=== PATIENT | female | born 1960 | race Caucasian/White ===

== ENCOUNTER 2017-10-08 23:01 | Observation (INO) | payer OTHER ==
[~2017-10-08] VITALS: Ht 160 cm; Wt 59.0 kg
[~2017-10-08 23:01] MED LIST: FURO20TA PO; LACT10SO PO; OXYC1CAP PO; PANT40TA3 PO; POTA-163 PO; SPIR50TA PO
[2017-10-08 23:08] VITALS: BP 157/73; PULSE 110; RESP 20; TEMP 98.2; O2SAT 98
[2017-10-08] MEDS ORDERED: SODIUM CHLOR 0.9% 1000 ML INJ 1,000 ML IV SCH (23:31)
[2017-10-08] MEDS ORDERED: ONDANSETRON HCL 4 MG/2 ML VIAL IVP ONE (23:45)
[2017-10-08] MEDS ORDERED: SODIUM CHLORIDE 0.9% FLUSH 10 ML FLUSH IVF PRN (23:45)
[2017-10-09] VITALS (9 sets, daily range): BP systolic 117–153; BP diastolic 58–88; PULSE 85–116; RESP 15–24; TEMP 98–98.7; O2SAT 94–97
[2017-10-09] MEDS ORDERED: PANTOPRAZOLE INJ 80 MG in SODIUM CHLORIDE 0.9% INJ 35 ML IV ONE (00:10)
[2017-10-09] MEDS ORDERED: SODIUM CHLORIDE 0.9% FLUSH 10 ML FLUSH IVF PRN (00:15)
[2017-10-09 00:18] LABS: AUTOMATED NEUTROPHIL # 1.9 TH/MM3 (1.8-7.7); EOSINOPHIL # 0.1 TH/MM3 (0-0.4); EOSINOPHIL % 2.7 % (0.0-4.0); HEMATOCRIT 31.1 % (35.0-46.0); HEMO FLAGS AUTO DIFF; LYMPH % 35.1 % (9.0-44.0); LYMPHOCYTE # 1.2 TH/MM3 (1.0-4.8); MEAN CELL VOLUME 95.9 FL (80.0-100.0); MEAN CORPUSCULAR HGB CONC 34.4 % (32.0-36.0); MONO % 7.1 % (0.0-8.0); NEUT % 54.1 % (16.0-70.0); PLATELET COUNT 48 TH/MM3 (150-450); RED BLOOD COUNT 3.25 MIL/MM3 (4.00-5.30); RED CELL DISTRIBUTION WIDTH 16.1 % (11.6-17.2); WHITE BLOOD COUNT 3.5 TH/MM3 (4.0-11.0)
[2017-10-09 00:24] LABS: ALT (GPT) 26 U/L (10-53)
[2017-10-09 00:26] LABS: ALKALINE PHOSPHATASE 165 U/L (45-117); TOTAL BILIRUBIN ADULT 4.3 MG/DL (0.2-1.0)
[2017-10-09 00:28] LABS: APTT (PATIENT) 33.3 SEC (24.3-30.1); INTERNATIONAL NORMALIZED RATIO 1.4 RATIO; PROTHROMBIN TIME - PATIENT 13.9 SEC (9.8-11.6)
[2017-10-09 00:44] LABS: ANION GAP 11 MEQ/L (5-15); AST (GOT) 100 U/L (15-37); BICARBONATE 21.6 MEQ/L (21.0-32.0); BLOOD UREA NITROGEN 8 MG/DL (7-18); CHLORIDE 113 MEQ/L (98-107); GLOMERULAR FILTRATION RATE 145 ML/MIN (>89); POTASSIUM 3.9 MEQ/L (3.5-5.1); SODIUM (NA) 146 MEQ/L (136-145)
[2017-10-09 01:03] LABS: SCAN/DIFF AUTO DIFF CONFIRMED
[2017-10-09] MEDS: PANTOPRAZOLE INJ 80 MG in SODIUM CHLORIDE 0.9% INJ 100 ML IV SCH ×3 (01:06→23:50)
[2017-10-09] MEDS: OCTREOTIDE INJ 500 MCG in SODIUM CHLORID 0.9% 500 ML INJ 500 ML IV SCH ×3 (01:27→23:51)
[2017-10-09] MEDS ORDERED: HALOPERIDOL LACTATE 5 MG/ML AMP IM PRN (01:45)
[2017-10-09] MEDS ORDERED: ONDANSETRON HCL 4 MG/2 ML VIAL IVP PRN (01:45)
[2017-10-09] MEDS ORDERED: SODIUM CHLORIDE 0.9% FLUSH 10 ML FLUSH IV FLUSH PRN (01:45)
[2017-10-09] MEDS ORDERED: MAGNESIUM HYDROXIDE SUSP 30 ML CUP PO PRN (01:45)
[2017-10-09] MEDS ORDERED: BISACODYL 10 MG SUPP RECTAL PRN (01:45)
[2017-10-09] MEDS ORDERED: SENNOSIDES 8.6 MG TAB PO PRN (01:45)
[2017-10-09] MEDS ORDERED: LORazepam 2 MG TAB PO PRN (01:45)
[2017-10-09] MEDS ORDERED: LACTULOSE SYRUP 20 GM/30 ML CUP PO PRN (01:45)
[2017-10-09] MEDS ORDERED: LORazepam 2 MG/ML VIAL IV PUSH PRN ×4 (01:45)
[2017-10-09] MEDS ORDERED: MORPHINE SULFATE 4 MG/ML INJ IV PUSH PRN (01:45)
[2017-10-09] MEDS ORDERED: FLUMAZENIL 0.5 MG/5 ML VIAL IV PUSH PRN (01:45)
[2017-10-09] MEDS ORDERED: ACETAMINOPHEN 325 MG TAB PO PRN (01:45)
[2017-10-09] MEDS: SODIUM CHLOR 0.9% 1000 ML INJ 1,000 ML IV SCH ×3 (02:17→23:52)
--- NOTE | 2017-10-09 03:14 | PD ---
HPI Chief Complaint: GI Complaint Time Seen by Provider: 23:30 Travel History International Travel<30 days: No Contact w/Intl Traveler<30days: No Traveled to known affect area: No History of Present Illness HPI 56 y/o female presents with bright red bleeding per rectum for 2 weeks. She states today she had an episode of nonbloody emesis and has been feeling more tired. She is a very poor historian on initial examination. She states that she's had a scope before but she can't remember when. She denies other complaints. States last alcohol yesterday PFSH Past Medical History Asthma: Yes Anxiety: Yes Depression: Yes Cancer: No Cardiovascular Problems: Yes COPD: No Diabetes: No Gastrointestinal Disorders: Yes GERD: Yes Glaucoma: No Genitourinary: No Hepatitis: No Hiatal Hernia: No Hypertension: Yes Musculoskeletal: Yes Neurologic: Yes Psychiatric: Yes Reproductive: Yes (ENDOMETRIOSIS) Respiratory: Yes (ASTHMA) Migraines: Yes Pancreatitis: Yes Seizures: Yes (LAST APRIL pt had a w/drawal sz when she stopped drinking ) Thyroid Disease: No Ulcer: Yes ?: Not Menopausal: Yes Past Surgical History Ear Surgery: Yes (MASTOIDECTOMY LEFT EAR 1982) Gynecologic Surgery: Yes (SCAR TISSUE REMOVED (ENDOMETRIOSIS)) Pacemaker: No Other Surgery: Yes Social History Alcohol Use: Yes Tobacco Use: No Substance Use: No Allergies-Medications (Allergen,Severity, Reaction): Coded Allergies: promethazine (Verified Allergy, Intermediate, 10/08/17) NERVOUSNESS Reported Meds & Prescriptions Reported Meds & Active Scripts Active No Active Prescriptions or Reported Medications Review of Systems Except as stated in HPI: all other systems reviewed are Neg Physical Exam Narrative GENERAL: Well-nourished, well-developed patient. SKIN: Warm and dry. HEAD: Normocephalic and atraumatic. EYES: No injection or drainage. ENT: No nasal drainage noted. NECK: Supple, trachea midline. CARDIOVASCULAR: Regular rate and rhythm RESPIRATORY: No increased effort. No accessory muscle use. GASTROINTESTINAL: Abdomen soft, non-tender, nondistended. RECTAL EXAM: Performed with owner professional engineer and after permission. No large external hemorrhoid or fissure, stool is brown with blood. NEUROLOGICAL: Awake and alert. Moves all extremities and sensory grossly within normal limits. Slurred speech. Data Data Last Documented VS Vital Signs Date Time Temp Pulse Resp B/P (MAP) Pulse Ox O2 Delivery O2 Flow Rate FiO2 10/08/17 23:08 98.2 110 20 157/73 (101) 98 Orders Orders Complete Blood Count With Diff (10/08/17 23:31) Comprehensive Metabolic Panel (10/08/17 23:31) Prothrombin Time / Inr (Pt) (10/08/17 23:31) Act Partial Throm Time (Ptt) (10/08/17 23:31) Type And Screen (10/08/17 23:31) Ecg Monitoring (10/08/17 23:31) Iv Access Insert/Monitor (10/08/17 23:31) Oximetry (10/08/17 23:31) Ondansetron Inj (Zofran Inj) (10/08/17 23:45) Sodium Chlor 0.9% 1000 Ml Inj (Ns 1000 M (10/08/17 23:31) Sodium Chloride 0.9% Flush (Ns Flush) (10/08/17 23:45) Sodium Chloride 0.9% Flush (Ns Flush) (10/09/17 00:15) Sodium Chlorid 0.9%... W/Octreotide Inj (10/09/17 00:10) Sodium Chloride 0.9... W/Pantoprazole In (10/09/17 00:10) Sodium Chloride 0.9... W/Pantoprazole In (10/09/17 00:10) Alcohol (Ethanol) (10/09/17 00:10) Admit Order (Ed Use Only) (10/09/17 01:25) Labs Laboratory Tests Test 10/08/17 23:50 White Blood Count 3.5 TH/MM3 Red Blood Count 3.25 MIL/MM3 Hemoglobin 10.7 GM/DL Hematocrit 31.1 % Mean Corpuscular Volume 95.9 FL Mean Corpuscular Hemoglobin 33.0 PG Mean Corpuscular Hemoglobin Concent 34.4 % Red Cell Distribution Width 16.1 % Platelet Count 48 TH/MM3 Mean Platelet Volume 8.1 FL Neutrophils (%) (Auto) 54.1 % Lymphocytes (%) (Auto) 35.1 % Monocytes (%) (Auto) 7.1 % Eosinophils (%) (Auto) 2.7 % Basophils (%) (Auto) 1.0 % Neutrophils # (Auto) 1.9 TH/MM3 Lymphocytes # (Auto) 1.2 TH/MM3 Monocytes # (Auto) 0.3 TH/MM3 Eosinophils # (Auto) 0.1 TH/MM3 Basophils # (Auto) 0.0 TH/MM3 CBC Comment AUTO DIFF Differential Comment AUTO DIFF CONFIRMED Prothrombin Time 13.9 SEC Prothromb Time International Ratio 1.4 RATIO Activated Partial Thromboplast Time 33.3 SEC Blood Urea Nitrogen 8 MG/DL Creatinine 0.45 MG/DL Random Glucose 114 MG/DL Total Protein 7.4 GM/DL Albumin 2.9 GM/DL Calcium Level 7.8 MG/DL Alkaline Phosphatase 165 U/L Aspartate Amino Transf (AST/SGOT) 100 U/L Alanine Aminotransferase (ALT/SGPT) 26 U/L Total Bilirubin 4.3 MG/DL Sodium Level 146 MEQ/L Potassium Level 3.9 MEQ/L Chloride Level 113 MEQ/L Carbon Dioxide Level 21.6 MEQ/L Anion Gap 11 MEQ/L Estimat Glomerular Filtration Rate 145 ML/MIN Ethyl Alcohol Level 343 MG/DL [facility] Medical Decision Making Medical Screen Exam Complete: Yes Emergency Medical Condition: Yes Medical Record Reviewed: Yes (past history confirmed) Interpretation(s) CBC & BMP Diagram 10/08/17 23:50 Total Protein 7.4, Albumin 2.9 L, Calcium Level 7.8 L, Alkaline Phosphatase 165 H, Aspartate Amino Transf (AST/SGOT) 100 H, Alanine Aminotransferase (ALT/SGPT) 26, Total Bilirubin 4.3 H Differential Diagnosis GI bleed, anemia, intoxication, gastritis Narrative Course Will check blood work and dose with Protonix and octreotide and reevaluate Labs reviewed, will admit to the hospital for further care Physician Communication Physician Communication dr boykin agrees to admit Diagnosis Primary Impression: GI bleed Qualified Codes: K92.2 - Gastrointestinal hemorrhage, unspecified Additional Impressions: Alcohol intoxication Qualified Codes: F10.929 - Alcohol use, unspecified with intoxication, unspecified Hyperbilirubinemia Admitting Information Admitting Physician Requests: Observation Scripts No Active Prescriptions or Reported Meds Chuyita Forte MD Oct 09, 2017 03:14
--- NOTE | 2017-10-09 03:44 | HHI.HP ---
HPI Service [facility] Primary Care Physician Parviz Bethea, Admission Diagnosis gi bleed Diagnoses: (1) GI bleed Diagnosis: Principal (2) Alcohol abuse Diagnosis: Principal (3) Thrombocytopenia Diagnosis: Principal Travel History International Travel<30 Days: No Contact w/Intl Traveler <30 Da: No Traveled to Known Affected Are: No History of Present Illness This is a 56-year-old female with a PMH of HTN, Anxiety, Depression, Alcohol Abuse and h/o GI Bleed who presented to the ER w/ complaints of rectal bleeding for approx 2wks. Today, w/ significant fatigue and episode of nausea w/ vomiting, nonbloody. Denies fever, chills or diarrhea. Previous admit 09/2016 , diagnosed w/ New Onset Ascites, CT Abd/Pelvis w/ ascites and varicosities consistent w/ cirrhosis, s/p EGD 09/18/16 w/ gastric ulcer and gastritis. Reports no issues since then. On arrival, BP 157/73, HR 110, O2 sat 98% on RA, Afebrile. Hemoglobin 10.7, previously 8.9 on 09/18/16. Platelets 48, previously 89 on 09/18/16. INR 1.4. Alcohol 343. Hemoccult + on exam. Review of Systems Except as stated in HPI: all other systems reviewed are Neg ROS: 14 point review of systems otherwise negative. Past Family Social History Past Medical History PMH: HTN, Anxiety, Depression, Alcohol Abuse and h/o GI Bleed Past Surgical History PAST SURGICAL HISTORY: Left Ear Surgery, Endometriosis Allergies: Coded Allergies: promethazine (Verified Allergy, Intermediate, 10/08/17) NERVOUSNESS Family History PAST FAMILY HISTORY: Reviewed. No h/o DM or CAD Social History PAST SOCIAL HISTORY: +Alcohol Abuse. Negative for tobacco or drugs. Physical Exam Vital Signs Vital Signs Date Time Temp Pulse Resp B/P (MAP) Pulse Ox O2 Delivery O2 Flow Rate FiO2 10/08/17 23:08 98.2 110 20 157/73 (101) 98 Physical Exam PE: GENERAL: Middle-aged white female in no acute distress. HEENT: PERRLA, EOMI. No scleral icterus or conjunctival pallor. No lid lag or facial droop. CARDIOVASCULAR: Regular rate and rhythm. No obvious murmurs to auscultation. No chest tenderness to palpation. RESPIRATORY: No obvious rhonchi or wheezing. Clear to auscultation. Breath sounds equal bilaterally. GASTROINTESTINAL: Abdomen soft, non-tender, nondistended. BS normal. MUSCULOSKELETAL: Extremities without clubbing, cyanosis, or edema. No obvious deformities. NEUROLOGICAL: Awake, alert and oriented x4. No focal neurologic deficits. Moving both upper and lower extremities spontaneously. Laboratory Laboratory Tests Test 10/08/17 23:50 White Blood Count 3.5 Red Blood Count 3.25 Hemoglobin 10.7 Hematocrit 31.1 Mean Corpuscular Volume 95.9 Mean Corpuscular Hemoglobin 33.0 Mean Corpuscular Hemoglobin Concent 34.4 Red Cell Distribution Width 16.1 Platelet Count 48 Mean Platelet Volume 8.1 Neutrophils (%) (Auto) 54.1 Lymphocytes (%) (Auto) 35.1 Monocytes (%) (Auto) 7.1 Eosinophils (%) (Auto) 2.7 Basophils (%) (Auto) 1.0 Neutrophils # (Auto) 1.9 Lymphocytes # (Auto) 1.2 Monocytes # (Auto) 0.3 Eosinophils # (Auto) 0.1 Basophils # (Auto) 0.0 CBC Comment AUTO DIFF Differential Comment AUTO DIFF CONFIRMED Prothrombin Time 13.9 Prothromb Time International Ratio 1.4 Activated Partial Thromboplast Time 33.3 Blood Urea Nitrogen 8 Creatinine 0.45 Random Glucose 114 Total Protein 7.4 Albumin 2.9 Calcium Level 7.8 Alkaline Phosphatase 165 Aspartate Amino Transf (AST/SGOT) 100 Alanine Aminotransferase (ALT/SGPT) 26 Total Bilirubin 4.3 Sodium Level 146 Potassium Level 3.9 Chloride Level 113 Carbon Dioxide Level 21.6 Anion Gap 11 Estimat Glomerular Filtration Rate 145 Ethyl Alcohol Level 343 Result Diagram: 10/08/17234910/08/172349 Caprini VTE Risk Assessment Caprini VTE Risk Assessment: No/Low Risk (score <= 1) VTE Pharm Contraindication: Active bleeding Caprini Risk Assessment Model Point Value = 1 Point Value = 2 Point Value = 3 Point Value = 5 Age 41-60 Minor surgery BMI > 25 kg/m2 Swollen legs Varicose veins or History of unexplained or recurrent spontaneous Oral contraceptives or hormone replacement Sepsis (< 1 month) Serious lung disease, including pneumonia (< 1 month) Abnormal pulmonary function Acute myocardial infarction Congestive heart failure (< 1 month) History of inflammatory bowel disease Medical patient at bed rest Age 61-74 Arthroscopic surgery Major open surgery (> 45 min) Laparoscopic surgery (> 45 min) Malignancy Confined to bed (> 72 hours) Immobilizing plaster cast Central venous access Age >= 75 History of VTE Family history of VTE Factor V Leiden Prothrombin [id number] Lupus anticoagulant Anticardiolipin antibodies Elevated serum homocysteine Heparin-induced thrombocytopenia Other congenital or acquired thrombophilia Stroke (< 1 month) Elective arthroplasty Hip, pelvis, or leg fracture Acute spinal cord injury (< 1 month) Prophylaxis Regimen Total Risk Factor Score Risk Level Prophylaxis Regimen 0-1 Low Early ambulation 2 Moderate Order ONE of the following: *Sequential Compression Device (SCD) *Heparin 5000 units SQ BID 3-4 Higher Order ONE of the following medications: *Heparin 5000 units SQ TID *Enoxaparin/Lovenox 40 mg SQ daily (WT < 150 kg, CrCl > 30 mL/min) *Enoxaparin/Lovenox 30 mg SQ daily (WT < 150 kg, CrCl > 10-29 mL/min) *Enoxaparin/Lovenox 30 mg SQ BID (WT < 150 kg, CrCl > 30 mL/min) AND/OR *Sequential Compression Device (SCD) 5 or more Highest Order ONE of the following medications: *Heparin 5000 units SQ TID (Preferred with Epidurals) *Enoxaparin/Lovenox 40 mg SQ daily (WT < 150 kg, CrCl > 30 mL/min) *Enoxaparin/Lovenox 30 mg SQ daily (WT < 150 kg, CrCl > 10-29 mL/min) *Enoxaparin/Lovenox 30 mg SQ BID (WT < 150 kg, CrCl > 30 mL/min) AND *Sequential Compression Device (SCD) Assessment and Plan Problem List: (1) GI bleed ICD Code: K92.2 - Gastrointestinal hemorrhage, unspecified Status: Acute (2) Alcohol abuse ICD Code: F10.10 - Alcohol abuse, uncomplicated (3) Thrombocytopenia ICD Code: D69.6 - Thrombocytopenia, unspecified Assessment and Plan A/P: 1. GI Bleed: h/o Alcohol Abuse w/ previous GI Bleed, now w/ rectal bleeding x2 wks, Hemoccult +. BP stable. Hgb 10.7, previously 8.9 on 09/18/16. On Octreotide in ER, consult GI. Check Hgb/Hct. Type and Screen, transfuse as needed. 2. Thrombocytopenia: Secondary to chronic alcohol abuse, Platelets 48, previously 89 on 09/18/16. Monitor closely. 3. Alcohol Abuse: w/ Acute Alcohol Intoxication, Alcohol 343, Seizure Precautions, MVT/Thiamine/Folate replacement, Ativan prn, 4. DVT Prophylaxis: Mechanical contraindication secondary to GI bleed 5. Social work for d/c planning as needed. 6. Case discussed w/ ER physician at length. Problem Qualifiers (1) GI bleed: Qualified Codes: K92.2 - Gastrointestinal hemorrhage, unspecified Christianne Benitez MD Oct 09, 2017 03:44
[2017-10-09] MEDS: LORazepam 1 MG TAB PO PRN ×2 (06:05→14:28)
[2017-10-09] MEDS: SODIUM CHLORIDE 0.9% FLUSH 10 ML FLUSH IV FLUSH SCH ×2 (09:00→23:50)
[2017-10-09] MEDS: THIAMINE HCL 100 MG TAB PO SCH (09:44)
[2017-10-09] MEDS: MULTIVITAMINS/MINERALS THERAPEUTIC TAB PO SCH (09:44)
[2017-10-09] MEDS: FOLIC ACID 1 MG TAB PO SCH (09:44)
[2017-10-09] MEDS: DOCUSATE SODIUM 50 MG/SENNA 8.6 MG TAB PO SCH ×2 (09:44→23:49)
--- NOTE | 2017-10-09 11:17 | PD.CONS ---
HPI History of Present Illness This is an alert 56 year old female who came to the ER with complaints of rectal bleeding 2 weeks. Patient notes bleeding initially was small amount bright red but has consistently showed more bright red bleeding. Patient denies any dysphasia, but is positive for some nausea and vomiting. Patient denies any hematemesis. Patient has a significant history of alcohol abuse, previous GI bleeds. Previous admit September 2016 showed varicosities, cirrhosis. EGD showed gastritis and gastric ulcer. Currently patient is awake , answering questions appropriately but has some anxiety and tremors noted. She has been placed on an EtOH protocol for withdrawal. Patient denies any fever but does note some chills off and on over the past few weeks. She also complains of some abdominal bloating. Hemoglobin was noted to be 10.7/31.1 on admission. PFSH Past Medical History HTN, Anxiety, Depression, Alcohol Abuse since the age of 19 GI Bleed Anxiety GERD Past Surgical History Left Ear Surgery, Endometriosis Breast mammoplasty Coded Allergies: promethazine (Verified Allergy, Intermediate, 10/08/17) NERVOUSNESS Medications Administered Medications Medications (Trade) Dose Ordered Sig/Cristal Route PRN Reason Start Time Stop Time Status Last Admin Dose Admin Octreotide Acetate 500 mcg/ Sodium Chloride 500.5 ml @ 50 mls/hr Q10H1M IV 10/09/17 00:10 10/09/17 01:27 Pantoprazole Sodium 80 mg/ Sodium Chloride 100 ml @ 10 mls/hr Q10H IV 10/09/17 00:10 10/09/17 01:06 Folic Acid (Folate) 1 mg DAILY PO 10/09/17 09:00 10/14/17 08:59 10/09/17 09:44 Thiamine HCl (Vitamin B1) 100 mg DAILY PO 10/09/17 09:00 10/09/17 09:44 Multivitamins/ Minerals Therapeutic (Theragran M Tab) 1 tab DAILY PO 10/09/17 09:00 10/14/17 08:59 10/09/17 09:44 Lorazepam (Ativan) 1 mg Q4H PRN PO CIWA 8 - 10 10/09/17 01:45 10/09/17 06:05 Sodium Chloride 1,000 ml @ 100 mls/hr Q10H IV 10/09/17 01:32 10/09/17 02:17 Senna/Docusate Sodium (Ashleigh-Colace) 1 tab BID PO 10/09/17 09:00 10/09/17 09:44 Family History No h/o DM or CAD Social History +Alcohol Abuse, since the age of 19, amount of alcohol was waxed and waned depending on her life needs. Preference is vodka, sometimes daily or at least 3 times a week Negative for tobacco or drugs. Zamzam is and currently lives alone Review of Systems Constitutional: COMPLAINS OF: Fatigue, Chills Gastrointestinal: COMPLAINS OF: Bloody stools, Nausea, Vomiting Psychiatric: COMPLAINS OF: Mood changes (EtOH abuse, tremors, possible withdrawal) GI Exam Vitals I&O Vital Signs Date Time Temp Pulse Resp B/P (MAP) Pulse Ox O2 Delivery O2 Flow Rate FiO2 10/09/17 08:25 98.0 111 24 134/63 (86) 94 10/09/17 04:39 98.7 114 18 133/74 (93) 95 10/09/17 04:18 102 16 127/60 (82) 98 Nasal Cannula 2.00 10/09/17 03:00 100 16 117/66 (83) 97 Nasal Cannula 2.00 10/09/17 02:00 94 15 121/67 (85) 96 Room Air 10/09/17 01:00 104 18 125/59 (81) 96 Room Air 10/09/17 00:00 116 17 130/71 (90) 96 Room Air 10/08/17 23:08 98.2 110 20 157/73 (101) 98 I/O 10/08/17 10/08/17 10/08/17 10/09/17 10/09/17 10/09/17 06:59 14:59 22:59 06:59 14:59 22:59 Intake Total 100 ml Balance 100 ml Intake IV Total 100 ml # Voids 1 Laboratory Test 10/08/17 23:50 White Blood Count 3.5 TH/MM3 Red Blood Count 3.25 MIL/MM3 Hemoglobin 10.7 GM/DL Hematocrit 31.1 % Mean Corpuscular Volume 95.9 FL Mean Corpuscular Hemoglobin 33.0 PG Mean Corpuscular Hemoglobin Concent 34.4 % Red Cell Distribution Width 16.1 % Platelet Count 48 TH/MM3 Mean Platelet Volume 8.1 FL Neutrophils (%) (Auto) 54.1 % Lymphocytes (%) (Auto) 35.1 % Monocytes (%) (Auto) 7.1 % Eosinophils (%) (Auto) 2.7 % Basophils (%) (Auto) 1.0 % Neutrophils # (Auto) 1.9 TH/MM3 Lymphocytes # (Auto) 1.2 TH/MM3 Monocytes # (Auto) 0.3 TH/MM3 Eosinophils # (Auto) 0.1 TH/MM3 Basophils # (Auto) 0.0 TH/MM3 CBC Comment AUTO DIFF Differential Comment AUTO DIFF CONFIRMED Prothrombin Time 13.9 SEC Prothromb Time International Ratio 1.4 RATIO Activated Partial Thromboplast Time 33.3 SEC Blood Urea Nitrogen 8 MG/DL Creatinine 0.45 MG/DL Random Glucose 114 MG/DL Total Protein 7.4 GM/DL Albumin 2.9 GM/DL Calcium Level 7.8 MG/DL Alkaline Phosphatase 165 U/L Aspartate Amino Transf (AST/SGOT) 100 U/L Alanine Aminotransferase (ALT/SGPT) 26 U/L Total Bilirubin 4.3 MG/DL Sodium Level 146 MEQ/L Potassium Level 3.9 MEQ/L Chloride Level 113 MEQ/L Carbon Dioxide Level 21.6 MEQ/L Anion Gap 11 MEQ/L Estimat Glomerular Filtration Rate 145 ML/MIN Ethyl Alcohol Level 343 MG/DL Physical Examination HEENT: Pupils round and reactive to light; normocephalic; atraumatic; skin color very clemons, oral cavity is clean. NECK: Neck is supple, no JVD, no lymphadenopathy. CHEST: Chest is clear to auscultation and percussion. CARDIAC: Regular rate and rhythm with no murmur gallop or rubs. ABDOMEN: Soft, positive for bloating mild distended, mild tenderness noted right upper quadrant, +hepatosplenomegaly; bowel sounds are present in all four quadrants. EXTREMITIES: No clubbing, cyanosis, or edema. SKIN: Normal; no rash; no jaundice. 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 - Alcohol-induced anxiety disorder Status: Acute (2) Alcoholic hepatitis ICD Codes: K70.10 - Alcoholic hepatitis without ascites Status: Acute (3) Alcohol abuse ICD Codes: F10.10 - Alcohol abuse, uncomplicated Status: Chronic (4) Ascites ICD Codes: R18.8 - Other ascites Status: Acute (5) Abdominal pain ICD Codes: R10.9 - Unspecified abdominal pain Status: Acute (6) GI bleed ICD Codes: K92.2 - Gastrointestinal hemorrhage, unspecified Status: Acute Plan Plan Diet clear liquids EGD and colonoscopy for Wednesday a.m., patient will be nothing by mouth at midnight and will receive bowel prep, and clear liquid diet on 10-10. Consents ordered Patient is alert and vital signs are stable, hemoglobin is 10.7 Monitor for any further GI bleeding, Transfuse as necessary Labs daily which will include hemoglobin hematocrit, LFTs Iron/TIBC, ferritin level Hemoccult, Gastroccult daily 3 PPI Carafate before meals and at bedtime Hold any coags for now Bowel regimen as needed for stool softeners and laxatives Treatment regimen and plan a care will be based on findings above Patient has been seen per Dr. Lauren and myself, consult written on her behalf Problem Qualifiers (1) GI bleed: Qualified Codes: K92.2 - Gastrointestinal hemorrhage, unspecified Felicia Xavier Oct 09, 2017 11:17
[2017-10-09] MEDS ORDERED: PEG (High)/E-LYTE SOLN 4000 ML BTL PO ONE (11:30)
--- NOTE | 2017-10-09 11:36 | HHI.PR ---
Subjective Remarks Follow up on a 56 year old female with PMH of HTN, anxiety, depression, alcohol abuse and GI bleed who presented to the ED. with complaints of bright red rectal bleeding for 2 weeks with increased fatigue. She denies any syncope or dizziness. Patient denies any nausea, or vomiting, no abdominal pain. She denies any NSAID use, but is an alcohol drinker reports drinking 3 vodka and tea 's about 3 times a week when her boyfriend is over. Patient is aware that she drinks in excess and has been through alcohol withdraws in the past with hallucinations. At the moment she does not report any visual changes and states that she is feeling fine. She denies any nausea or vomiting, no SOB. repots chest pain that is constant rates it 06/17. She denies any other associated symptoms, denies prior cardiac history. GI was in to see patient, but she is not aware of plans for her today. Objective Vitals Vital Signs Date Time Temp Pulse Resp B/P (MAP) Pulse Ox O2 Delivery O2 Flow Rate FiO2 10/09/17 08:25 98.0 111 24 134/63 (86) 94 10/09/17 04:39 98.7 114 18 133/74 (93) 95 10/09/17 04:18 102 16 127/60 (82) 98 Nasal Cannula 2.00 10/09/17 03:00 100 16 117/66 (83) 97 Nasal Cannula 2.00 10/09/17 02:00 94 15 121/67 (85) 96 Room Air 10/09/17 01:00 104 18 125/59 (81) 96 Room Air 10/09/17 00:00 116 17 130/71 (90) 96 Room Air 10/08/17 23:08 98.2 110 20 157/73 (101) 98 I/O 10/08/17 10/08/17 10/08/17 10/09/17 10/09/17 10/09/17 07:00 15:00 23:00 07:00 15:00 23:00 Intake Total 100 ml Balance 100 ml Intake IV Total 100 ml # Voids 1 2 Result Diagram: 10/08/17 2350 10/08/17 2350 Imaging Last Impressions Abdomen/Pelvis CT 10/09/17 0000 Signed Impressions: Service Date/Time: Saturday, October 09, 2017 13:05 - CONCLUSION: 1. Cirrhotic liver with portal hypertension including large recanalized periumbilical vein and prominent splenorenal collaterals. There are small gastroesophageal varices. No significant ascites. 2. Cholelithiasis. 3. Otherwise, no definite acute animality. Yoel Winters MD Objective Remarks GENERAL: Middle-aged white female in no acute distress with fine hand shaking. HEENT: No scleral icterus or conjunctival pallor. No lid lag or facial droop. CARDIOVASCULAR: Regular rate and rhythm. No obvious murmurs to auscultation. RESPIRATORY: No obvious rhonchi or wheezing. Clear to auscultation. Breath sounds equal bilaterally. GASTROINTESTINAL: Abdomen soft, non-tender, nondistended. BS normal. MUSCULOSKELETAL: Extremities without clubbing, cyanosis, or edema. No obvious deformities. NEUROLOGICAL: Awake, alert and oriented x3. No focal neurologic deficits. Moving both upper and lower extremities spontaneously. A/P Problem List: (1) GI bleed ICD Code: K92.2 - Gastrointestinal hemorrhage, unspecified Status: Acute (2) Alcohol abuse ICD Code: F10.10 - Alcohol abuse, uncomplicated (3) Thrombocytopenia ICD Code: D69.6 - Thrombocytopenia, unspecified Assessment and Plan 56 year old female with PMH of HTN, anxiety, depression, alcohol abuse and GI bleed who presented to the ED. with complaints of bright red rectal bleeding for 2 weeks with increased fatigue. Gastrointestinal bleed, likely lower as she is having bright red blood in stool Anemia with thrombocytopenia - Initial H&H 10.7/31.1 with PLTs 48 - CT scan of the Abdomen/ Pelvis reviewed showing cirrhotic liver with portal hypertension with large recanalized periumbilical vein and prominent splenorenal collaterals. Small gastroesophageal varices, no ascites. Cholelithiasis present as well. - GI has been consulted and had advanced patient to clear liquid diet with plans for EGD and colonoscopy on Wednesday morning. - Iron studies ordered by GI, Pantoprazole, Octreotide IV & PO Carafate before meals and at HS Liver cirrhosis with thrombocytopenia likely secondary to alcohol abuse - Patient repots alcohol consumption at least 3 times a week, ethyl alcohol level on admission 343. - Advised on alcohol cessation and need to do this cautiously to avoid seizures from withdraw. - Small amount of hand shaking with no reported visual hallucinations. - On Thiamine, folate, and Multivitamin PO - PRN Ativan if needed, seizure precautions - CIWA protocol Atypical chest pain, acute - Likely related to GIB, anemia. - Order serial trops and EKG's - EKG done in ED reviewed, showing ST - Morphine PRN for pain. VTE - Anticoagulation contraindicated due to GIB, SCD's and SIMIN's for now. Discussed with Problem Qualifiers (1) GI bleed: Qualified Codes: K92.2 - Gastrointestinal hemorrhage, unspecified Samir Abraham Oct 09, 2017 11:35
[2017-10-09] MEDS: SUCRALFATE 1 GM/10 ML CUP PO SCH ×3 (12:00→23:49)
--- NOTE | 2017-10-09 13:31 | RADRPT ---
EXAM DATE/TIME: 10/09/2017 13:05 [place] COMPARISON: CT ABDOMEN & PELVIS W CONTRAST, September 15, 2016, 18:56. INDICATIONS : Right lower abdomen pain and blood in stool today. ORAL CONTRAST: No oral contrast ingested. RADIATION DOSE: 13.48 CTDIvol (mGy) MEDICAL HISTORY : Hypertension. Pancreatitis. Gastroesophageal reflux disease. SURGICAL HISTORY : None. ENCOUNTER: Initial ACUITY: 1 day PAIN SCALE: 4/10 LOCATION: Right lower quadrant TECHNIQUE: Volumetric scanning of the abdomen and pelvis was performed. Using automated exposure control and ad justment of the mA and/or kV according to patient size, radiation dose was kept as low as reasonably achievable to obtain optimal diagnostic quality images. DICOM format image data is available electro nically for review and comparison. FINDINGS: LOWER LUNGS: The visualized lower lungs are clear. LIVER: Lobulated liver contour with large recanalized periumbilical vein consistent with cirrhosis and ny l hypertension. Prominent splenorenal collaterals. Grossly stable small gastroesophageal varices. Gal lbladder is mildly distended with multiple small dependent gallstones. No significant ascites. SPLEEN: Spleen is enlarged measuring up to 14.8 cm. PANCREAS: Within normal limits. KIDNEYS: No radiopaque renal calculi or hydronephrosis. Symmetrical in size without significant contour deform ing of the mildly. ADRENAL GLANDS: Within normal limits. VASCULAR: There is no aortic aneurysm. BOWEL/MESENTERY: The stomach, small bowel, and colon demonstrate no acute abnormality. There is no free intraperitone al air or fluid. ABDOMINAL WALL: Within normal limits. RETROPERITONEUM: There is no lymphadenopathy. BLADDER: No wall thickening or mass. REPRODUCTIVE: Within normal limits. INGUINAL: There is no lymphadenopathy or hernia. MUSCULOSKELETAL: Within normal limits for patient age. CONCLUSION: 1. Cirrhotic liver with portal hypertension including large recanalized periumbilical vein and promin ent splenorenal collaterals. There are small gastroesophageal varices. No significant ascites. 2. Cholelithiasis. 3. Otherwise, no definite acute animality. Yoel Winters MD on October 09, 2017 at 13:24 Board Certified Radiologist. This report was verified electronically.
[2017-10-09] MEDS ORDERED: DEXTROSE 50% IN WATER 50 ML VIAL(D50) IV PUSH PRN (19:15)
[2017-10-09] MEDS ORDERED: GLUCAGON 1 MG/ML VIAL OTHER PRN (19:15)
[2017-10-09] MEDS: INSULIN ASPART SUPPLEMENTAL SCALE SQ SCH (21:00)
[2017-10-09] MEDS ORDERED: POVIDONE IODINE 5% (ANTISEPSIS KIT) 4 APPLICATIONS EACH NARE PRN (22:00)
[2017-10-09] MEDS ORDERED: LACTATED RINGER'S 1000 ML IV PRN (22:00)
[2017-10-09] MEDS ORDERED: CHLORHEXIDINE GLUCONATE 2 % 1 PACK (2 CLOTHS) TOPICAL PRN (22:00)
[2017-10-10] VITALS (7 sets, daily range): BP systolic 126–186; BP diastolic 60–91; PULSE 83–101; RESP 18–24; TEMP 98.2–98.6; O2SAT 94–97
[2017-10-10 03:39] LABS: TRANSFERRIN IRON PROFILE 155 MG/DL (200-360)
[2017-10-10 03:42] LABS: FERRITIN 256 NG/ML (8-252)
[2017-10-10] MEDS: INSULIN ASPART SUPPLEMENTAL SCALE SQ SCH ×4 (08:00→21:00)
[2017-10-10] MEDS: SUCRALFATE 1 GM/10 ML CUP PO SCH ×4 (08:09→22:25)
[2017-10-10] MEDS: SODIUM CHLORIDE 0.9% FLUSH 10 ML FLUSH IV FLUSH SCH ×2 (08:10→21:00)
--- NOTE | 2017-10-10 09:07 | HHI.GIFU ---
Subjective Remarks Pt resting in bed comfortably complaining of weakness. Reports no BM today or yesterday. Complaining of nausea, denies vomiting. Also having abdominal fullness, denies any abdominal pain. (Anika Alexis) Objective Vitals I&O Vital Signs Date Time Temp Pulse Resp B/P (MAP) Pulse Ox O2 Delivery O2 Flow Rate FiO2 10/10/17 07:39 98.6 87 20 135/63 (87) 95 10/10/17 03:14 98.4 101 18 126/60 (82) 94 10/10/17 00:16 98.5 94 18 147/72 (97) 96 10/09/17 16:36 98.2 85 20 153/58 (89) 96 10/09/17 12:44 98.2 113 24 141/88 (105) 96 I/O 10/09/17 10/09/17 10/09/17 10/10/17 10/10/17 10/10/17 07:00 15:00 23:00 07:00 15:00 23:00 Intake Total 1000 ml 1600.5 ml Output Total 400 ml Balance 1000 ml 1600.5 ml -400 ml Intake IV Total 1000 ml 1600.5 ml Output Urine Total 400 ml # Voids 1 2 6 # Bowel Movements 0 Laboratory Laboratory Tests Test 10/09/17 13:35 10/09/17 19:50 10/10/17 02:47 Troponin I LESS THAN 0.02 LESS THAN 0.02 LESS THAN 0.02 Iron Level 193 Total Iron Binding Capacity 217 Percent Iron Saturation 88.9 Ferritin 256 Imaging Last Impressions Abdomen/Pelvis CT 10/09/17 0000 Signed Impressions: Service Date/Time: Monday, October 09, 2017 13:05 - CONCLUSION: 1. Cirrhotic liver with portal hypertension including large recanalized periumbilical vein and prominent splenorenal collaterals. There are small gastroesophageal varices. No significant ascites. 2. Cholelithiasis. 3. Otherwise, no definite acute animality. Yoel Winters MD Physical Exam HEENT: Normocephalic; atraumatic; no jaundice. CHEST: CTA CARDIAC: RRR ABDOMEN: Soft, distended, nontender; hepatomegaly; bowel sounds are present in all four quadrants. EXTREMITIES: Mild edema. SKIN: Normal; no rash; no jaundice. SHREDDER TENDER PEAT: No focal deficits; alert and oriented times three. 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 H/H on admission . Labs from today pending. Octreotide gtt. Protonix gtt. Plan for EGD/colon tomorrow. - Alcoholic hepatitis/cirrhosis- Pt reports having one paracentesis in the past , approx a year ago. CT Abdomen & pelvis W/O IV contrast (10/09) --> Cirrhotic liver with portal hypertension including large recanalized periumbilical vein and prominent splenorenal collaterals. There are small gastroesophageal varices No significant ascites. Cholelithiasis. Otherwise, no definite acute animality. Lactulose. - Transaminitis- etiology most likely related to ETOH. AST-100. ALT-26 T bili 4.3. - Anemia- normocytic- most likely related to active bleed. Iron-193 TIBC-217 % Sat- 88.9 Ferritin-256 - Nausea- Zofran as needed Plan - EGD/colon tomorrow - Obtain consents - Clear liquid diet today - NPO after MN - GoLYTELY prep - Protonix gtt - Octreotide gtt - Monitor labs - Transfuse as needed - Notify GI of any active bleeding - Further recommendations to follow based on results of above Patient has been seen and examined by myself and Dr. Lauren and this note is written on her behalf (Anika Alexis) Physician Comments seen, examined\ agree with above direct/indirect bilirubin if lfts worsening consider Trental/Prednisolone elevated iron, ferritin most likely secondary etoh use, may test for hereditary hemochromatosis test avoid etoh/hepatotoxics (Arina Lauren MD) Problem Qualifiers (1) GI bleed: Qualified Codes: K92.2 - Gastrointestinal hemorrhage, unspecified Anika Alexis Oct 10, 2017 09:07 Arina Lauren MD Oct 10, 2017 18:07
[2017-10-10 09:49] LABS: HEMOGLOBIN A1b 1.1 %; HEMOGLOBIN Ao 87.3 %; HEMOGLOBIN LA1C 2.1 %; HEMOGLOBIN P3 3.3 %
[2017-10-10] MEDS: MULTIVITAMINS/MINERALS THERAPEUTIC TAB PO SCH (09:49)
[2017-10-10] MEDS: THIAMINE HCL 100 MG TAB PO SCH (09:49)
[2017-10-10] MEDS: DOCUSATE SODIUM 50 MG/SENNA 8.6 MG TAB PO SCH ×2 (09:50→21:00)
[2017-10-10] MEDS: FOLIC ACID 1 MG TAB PO SCH (09:50)
[2017-10-10] MEDS ORDERED: PNEUMOCOCCAL POLYVALENT INJ 25 MCG/0.5 ML SYR IM ONE (10:00)
[2017-10-10] MEDS: SODIUM CHLOR 0.9% 1000 ML INJ 1,000 ML IV SCH (10:34)
--- NOTE | 2017-10-10 10:39 | HHI.PR ---
Subjective Remarks Follow-up GI bleed/anemia, alcohol abuse 10/10/17-patient seen and examined,+ heart palpitation, hand tremors. Denies any GI bleed since admission. Plan for panendoscopy tomorrow. Objective Vitals Vital Signs Date Time Temp Pulse Resp B/P (MAP) Pulse Ox O2 Delivery O2 Flow Rate FiO2 10/10/17 07:39 98.6 87 20 135/63 (87) 95 10/10/17 03:14 98.4 101 18 126/60 (82) 94 10/10/17 00:16 98.5 94 18 147/72 (97) 96 10/09/17 16:36 98.2 85 20 153/58 (89) 96 10/09/17 12:44 98.2 113 24 141/88 (105) 96 I/O 10/09/17 10/09/17 10/09/17 10/10/17 10/10/17 10/10/17 07:00 15:00 23:00 07:00 15:00 23:00 Intake Total 1000 ml 1600.5 ml 1000 ml Output Total 700 ml Balance 1000 ml 1600.5 ml 300 ml Intake IV Total 1000 ml 1600.5 ml 1000 ml Output Urine Total 700 ml # Voids 1 2 6 # Bowel Movements 0 Result Diagram: 10/08/17 2350 10/08/17 2350 Imaging Last Impressions Abdomen/Pelvis CT 10/09/17 0000 Signed Impressions: Service Date/Time: Monday, October 09, 2017 13:05 - CONCLUSION: 1. Cirrhotic liver with portal hypertension including large recanalized periumbilical vein and prominent splenorenal collaterals. There are small gastroesophageal varices. No significant ascites. 2. Cholelithiasis. 3. Otherwise, no definite acute animality. Yoel Winters MD Objective Remarks GENERAL: NAD SKIN: Warm and dry. HEAD: Normocephalic. EYES: No scleral icterus. No injection or drainage. NECK: Supple, trachea midline. No JVD or lymphadenopathy. CARDIOVASCULAR: Regular rate and rhythm without murmurs, gallops, or rubs. RESPIRATORY: Breath sounds equal bilaterally. No accessory muscle use. GASTROINTESTINAL: Abdomen soft, non-tender, nondistended. MUSCULOSKELETAL: No cyanosis, or edema. BACK: Nontender without obvious deformity. No CVA tenderness. A/P Problem List: (1) GI bleed ICD Code: K92.2 - Gastrointestinal hemorrhage, unspecified Status: Acute (2) Alcohol abuse ICD Code: F10.10 - Alcohol abuse, uncomplicated (3) Thrombocytopenia ICD Code: D69.6 - Thrombocytopenia, unspecified Assessment and Plan 56 year old female with PMH of HTN, anxiety, depression, alcohol abuse and GI bleed who presented to the ED. with complaints of bright red rectal bleeding for 2 weeks with increased fatigue. Gastrointestinal bleed, likely lower as she is having bright red blood in stool Anemia with thrombocytopenia - Initial H&H 10.7/31.1 with PLTs 48 -Appreciate input from GI and plan for panendoscopy 10/11/17 - Continue Pantoprazole, Octreotide IV & PO Carafate before meals and at HS Liver cirrhosis with thrombocytopenia likely secondary to alcohol abuse - Advised on alcohol cessation and need to do this cautiously to avoid seizures from withdraw. - Small amount of hand shaking with no reported visual hallucinations. - On Thiamine, folate, and Multivitamin PO - PRN Ativan if needed, seizure precautions - CIWA protocol -Start Librium protocol when necessary Atypical chest pain, acute - Resolved, ACS ruled out per protocol VTE - Anticoagulation contraindicated due to GIB, SCD's and SIMIN's for now. Problem Qualifiers (1) GI bleed: Qualified Codes: K92.2 - Gastrointestinal hemorrhage, unspecified Marquise Colunga MD Oct 10, 2017 10:39
[2017-10-10] MEDS: OCTREOTIDE INJ 500 MCG in SODIUM CHLORID 0.9% 500 ML INJ 500 ML IV SCH (11:18)
[2017-10-10] MEDS: PANTOPRAZOLE INJ 80 MG in SODIUM CHLORIDE 0.9% INJ 100 ML IV SCH (11:18)
[2017-10-10 13:41] LABS: AUTOMATED NEUTROPHIL # 1.3 TH/MM3 (1.8-7.7); BASOPHIL % 0.5 % (0.0-2.0); EOSINOPHIL # 0.1 TH/MM3 (0-0.4); EOSINOPHIL % 4.3 % (0.0-4.0); HEMATOCRIT 28.4 % (35.0-46.0); LYMPH % 23.2 % (9.0-44.0); LYMPHOCYTE # 0.5 TH/MM3 (1.0-4.8); MEAN CELL VOLUME 95.2 FL (80.0-100.0); MEAN CORPUSCULAR HEMOGLOBIN 32.9 PG (27.0-34.0); MEAN CORPUSCULAR HGB CONC 34.6 % (32.0-36.0); MONO % 8.4 % (0.0-8.0); NEUT % 63.6 % (16.0-70.0); PLATELET COUNT 30 TH/MM3 (150-450); RED BLOOD COUNT 2.98 MIL/MM3 (4.00-5.30); RED CELL DISTRIBUTION WIDTH 15.1 % (11.6-17.2); WHITE BLOOD COUNT 2.1 TH/MM3 (4.0-11.0)
[2017-10-10 13:45] LABS: HEMO FLAGS AUTO DIFF
[2017-10-10 13:48] LABS: INTERNATIONAL NORMALIZED RATIO 1.5 RATIO; PROTHROMBIN TIME - PATIENT 15.3 SEC (9.8-11.6)
[2017-10-10 14:11] LABS: ALT (GPT) 23 U/L (10-53); ANION GAP 8 MEQ/L (5-15); AST (GOT) 75 U/L (15-37); BICARBONATE 25.6 MEQ/L (21.0-32.0); CHLORIDE 105 MEQ/L (98-107); GLOMERULAR FILTRATION RATE 138 ML/MIN (>89); POTASSIUM 3.5 MEQ/L (3.5-5.1); SODIUM (NA) 139 MEQ/L (136-145)
[2017-10-10 14:20] LABS: PLATELET ESTIMATE SMEAR LOW (NORMAL); PLATELET MORPHOLOGY NORMAL (NORMAL); SCAN/DIFF AUTO DIFF CONFIRMED
[2017-10-10 14:21] LABS: ALKALINE PHOSPHATASE 120 U/L (45-117); BLOOD UREA NITROGEN 5 MG/DL (7-18); TOTAL BILIRUBIN ADULT 7.3 MG/DL (0.2-1.0)
[2017-10-10] MEDS ORDERED: PEG (High)/E-LYTE SOLN 4000 ML BTL PO ONE (16:00)
[2017-10-10] MEDS ORDERED: PROT40TA PO (18:08)
--- NOTE | 2017-10-10 22:54 | EKG ---
Date Performed: 10/09/2017 Time Performed: 10:55:32 PTAGE: 56 years EKG: SINUS TACHYCARDIA ABNORMAL RHYTHM ECG PREVIOUS TRACING : 04/17/2016 14.50 Compared to prior tracing no significant change DOCTOR: Aime Cho Interpretating Date/Time 10/10/2017 22:53:50
[2017-10-11] MEDS: SODIUM CHLOR 0.9% 1000 ML INJ 1,000 ML IV SCH ×4 (01:02→23:32)
[2017-10-11] MEDS: PANTOPRAZOLE INJ 80 MG in SODIUM CHLORIDE 0.9% INJ 100 ML IV SCH ×4 (01:02→21:16)
[2017-10-11] MEDS: OCTREOTIDE INJ 500 MCG in SODIUM CHLORID 0.9% 500 ML INJ 500 ML IV SCH ×4 (01:06→21:17)
[2017-10-11 04:51] VITALS: BP 139/86; PULSE 95; RESP 18; TEMP 97.8; O2SAT 98
--- NOTE | 2017-10-11 07:44 | HHI.PR ---
Subjective Remarks Follow-up visit on a 56-year-old female with past medical history of hypertension, anxiety, depression, and alcohol abuse who presented on 10/09 to the ED with complaints of rectal bleeding for the past 2 weeks. Patient was seen and examined this morning in CDU resting comfortably. She denies any vomiting although does report some nausea overnight, nice any black or bloody stools overnight. She is aware that she will be going today for upper and lower endoscopy. She denies any SOB, chest pains, fevers or chills overnight. She denies any hallucinations or shakiness. HAD EGD AND COLONOSCOPY PATIENT IS VERY JAUNDICED AM LABS PT AND OT Objective Vitals Vital Signs Date Time Temp Pulse Resp B/P (MAP) Pulse Ox O2 Delivery O2 Flow Rate FiO2 10/11/17 04:51 97.8 95 18 139/86 (103) 98 10/10/17 23:47 98.3 83 18 131/68 (89) 96 10/10/17 20:26 98.2 92 18 186/91 (122) 97 10/10/17 15:42 98.2 98 24 148/65 (92) 96 10/10/17 11:26 98.5 99 20 131/69 (89) 96 I/O 10/10/17 10/10/17 10/10/17 10/11/17 10/11/17 10/11/17 07:00 15:00 23:00 07:00 15:00 23:00 Intake Total 1600.5 ml Output Total 700 ml 400 ml Balance 900.5 ml -400 ml Intake IV Total 1600.5 ml Output Urine Total 700 ml 400 ml # Bowel Movements 1 Result Diagram: 10/10/17 1314 10/10/17 1314 Other Results Laboratory Tests Test 10/08/17 23:50 10/09/17 13:35 10/09/17 19:50 10/10/17 02:47 White Blood Count 3.5 TH/MM3 Red Blood Count 3.25 MIL/MM3 Hemoglobin 10.7 GM/DL Hematocrit 31.1 % Mean Corpuscular Volume 95.9 FL Mean Corpuscular Hemoglobin 33.0 PG Mean Corpuscular Hemoglobin Concent 34.4 % Red Cell Distribution Width 16.1 % Platelet Count 48 TH/MM3 Mean Platelet Volume 8.1 FL Neutrophils (%) (Auto) 54.1 % Lymphocytes (%) (Auto) 35.1 % Monocytes (%) (Auto) 7.1 % Eosinophils (%) (Auto) 2.7 % Basophils (%) (Auto) 1.0 % Neutrophils # (Auto) 1.9 TH/MM3 Lymphocytes # (Auto) 1.2 TH/MM3 Monocytes # (Auto) 0.3 TH/MM3 Eosinophils # (Auto) 0.1 TH/MM3 Basophils # (Auto) 0.0 TH/MM3 CBC Comment AUTO DIFF Differential Comment AUTO DIFF CONFIRMED Prothrombin Time 13.9 SEC Prothromb Time International Ratio 1.4 RATIO Activated Partial Thromboplast Time 33.3 SEC Blood Urea Nitrogen 8 MG/DL Creatinine 0.45 MG/DL Random Glucose 114 MG/DL Total Protein 7.4 GM/DL Albumin 2.9 GM/DL Calcium Level 7.8 MG/DL Alkaline Phosphatase 165 U/L Aspartate Amino Transf (AST/SGOT) 100 U/L Alanine Aminotransferase (ALT/SGPT) 26 U/L Total Bilirubin 4.3 MG/DL Sodium Level 146 MEQ/L Potassium Level 3.9 MEQ/L Chloride Level 113 MEQ/L Carbon Dioxide Level 21.6 MEQ/L Anion Gap 11 MEQ/L Estimat Glomerular Filtration Rate 145 ML/MIN Ethyl Alcohol Level 343 MG/DL Troponin I LESS THAN 0.02 NG/ML LESS THAN 0.02 NG/ML LESS THAN 0.02 NG/ML Hemoglobin A1c 4.8 % Iron Level 193 MCG/DL Total Iron Binding Capacity 217 MCG/DL Percent Iron Saturation 88.9 % Ferritin 256 NG/ML Test 10/10/17 13:14 10/11/17 06:12 White Blood Count 2.1 TH/MM3 Red Blood Count 2.98 MIL/MM3 Hemoglobin 9.8 GM/DL Hematocrit 28.4 % Mean Corpuscular Volume 95.2 FL Mean Corpuscular Hemoglobin 32.9 PG Mean Corpuscular Hemoglobin Concent 34.6 % Red Cell Distribution Width 15.1 % Platelet Count 30 TH/MM3 Mean Platelet Volume 8.4 FL Neutrophils (%) (Auto) 63.6 % Lymphocytes (%) (Auto) 23.2 % Monocytes (%) (Auto) 8.4 % Eosinophils (%) (Auto) 4.3 % Basophils (%) (Auto) 0.5 % Neutrophils # (Auto) 1.3 TH/MM3 Lymphocytes # (Auto) 0.5 TH/MM3 Monocytes # (Auto) 0.2 TH/MM3 Eosinophils # (Auto) 0.1 TH/MM3 Basophils # (Auto) 0.0 TH/MM3 CBC Comment AUTO DIFF Differential Comment AUTO DIFF CONFIRMED Platelet Estimate LOW Platelet Morphology Comment NORMAL Prothrombin Time 15.3 SEC Prothromb Time International Ratio 1.5 RATIO Blood Urea Nitrogen 5 MG/DL Creatinine 0.47 MG/DL Random Glucose 145 MG/DL Total Protein 7.0 GM/DL Albumin 2.8 GM/DL Calcium Level 7.9 MG/DL Alkaline Phosphatase 120 U/L Aspartate Amino Transf (AST/SGOT) 75 U/L Alanine Aminotransferase (ALT/SGPT) 23 U/L Total Bilirubin 7.3 MG/DL Sodium Level 139 MEQ/L Potassium Level 3.5 MEQ/L Chloride Level 105 MEQ/L Carbon Dioxide Level 25.6 MEQ/L Anion Gap 8 MEQ/L Estimat Glomerular Filtration Rate 138 ML/MIN Imaging Last Impressions Abdomen/Pelvis CT 10/09/17 0000 Signed Impressions: Service Date/Time: Monday, October 09, 2017 13:05 - CONCLUSION: 1. Cirrhotic liver with portal hypertension including large recanalized periumbilical vein and prominent splenorenal collaterals. There are small gastroesophageal varices. No significant ascites. 2. Cholelithiasis. 3. Otherwise, no definite acute animality. Yoel Winters MD Objective Remarks GENERAL: Awake and alert and oriented very yellow in appearance and jaundiced SKIN: Warm and dry. HEAD: Atraumatic. Normocephalic. EYES: Pupils equal and round. Positive scleral icterus. No injection or drainage. Extraocular muscles intact ENT: No nasal bleeding or discharge. Mucous membranes pink and moist. Tongue is midline NECK: Trachea midline. No JVD. Supple CARDIOVASCULAR: Regular rate and rhythm. S1 and S2 no S3-S4 no heave or thrill or rub or gallop RESPIRATORY: No accessory muscle use. Clear to auscultation. Breath sounds equal bilaterally. GASTROINTESTINAL: Abdomen soft, non-tender, nondistended. Hepatic and splenic margins not palpable. Obese MUSCULOSKELETAL: Extremities without clubbing, cyanosis, or edema. No obvious deformities. NEUROLOGICAL: Awake and alert. No obvious cranial nerve deficits. Motor grossly within normal limits. Five out of 5 muscle strength in the arms and legs. Normal speech. PSYCHIATRIC: INAppropriate mood and affect; insight and judgment ABnormal. Procedures COLONOSCOPY PROCEDURE REPORT EXAM DATE: 10/11/2017 PATIENT NAME: Kaitlin Rabago MR #: [id number] BIRTHDATE: 1960 ENDOSCOPIST: Asuncion Macias MD ORDER #: [id number] COMPUTER SYSTEMS DESIGN ANALYST: Layla Aparicio and Arlen Maher STATUS: inpatient INDICATIONS: The patient is a 56 yr old female here for a colonoscopy due to iron deficiency anemia and hematochezia PROCEDURE PERFORMED: Colonoscopy with ablation MEDICATIONS: None and Per Anesthesia. PREP QUALITY: The [place] Bowel Prep Score was Right colon 2, Mid colon 2, and Left colon 3. Total = 7. PREP TYPE:GoLytely ESTIMATED BLOOD LOSS: None CONSENT: The patient understands the risks and benefits of the procedure and understands that these risks include, but are not limited to: sedation, allergic reaction, infection, perforation and/or bleeding. Alternative means of evaluation and treatment include, among others: physical exam, x-rays, and/or surgical intervention. The patient elects to proceed with this endoscopic procedure. medical equipment was checked for proper function. Hand hygiene and appropriate measures for infection prevention was taken. After the risks, benefits and alternatives of the procedure were thoroughly explained, Informed consent was verified, confirmed and timeout was successfully executed by the treatment team. A digital exam revealed external hemorrhoids The Pentax EC-[id number] endoscope was introduced through the anus and advanced to the cecum, which was identified by both the appendix and ileocecal valve. The instrument was then slowly withdrawn as the colon was fully examined. COLON FINDINGS: Moderate diverticulosis was noted in the ascending colon. A 5 x 5cm circumferential diffuse patch of colitis was found in the rectum. The mucosa was erythematous, friable and oozing blood. Destruction of tissue via ablation was attempted. Bleeding from maneuver treated with cautery. Argon plasma coagulation was used. Care was given to ensure that the lumen was suctioned well. A polypoid shaped sessile polyp ranging between 3-5mm in size was found in the ascending colon. Retroflexed views revealed internal hemorrhoids and Retroflexed views revealed small internal hemorrhoids The scope was then completely withdrawn from the patient and the procedure terminated. PROCEDURE WITHDRAWAL TIME:6minutes ADVERSE EVENTS: There were no complications. IMPRESSIONS: 1. Moderate diverticulosis was noted in the ascending colon 2. 5 x 5cm circumferential diffuse colitis was found in the rectum; The mucosa was erythematous, friable and oozing blood; Destruction of tissue via ablation was attempted 3. A sessile polyp ranging between 3-5mm in size was found in the ascending colon 4. Retroflexed views revealed internal hemorrhoids 5. Retroflexed views revealed small internal hemorrhoids 6. Revealed external hemorrhoids RECOMMENDATIONS: 1. Continue surveillance 2. High fiber diet 3. Yearly hemoccult 4. No seeds, nuts and popcorn in diet RECALL: Return 1 year Colonoscopy Asuncion Macias MD eSigned: Asuncion Macias MD 10/11/2017 3:24 PM EGD PROCEDURE REPORT EXAM DATE: 10/11/2017 PATIENT NAME: Kaitlin Rabago MR #: [id number] BIRTHDATE: 1960 ATTENDING: Asuncion Macias MD ORDER #: [id number] COMPUTER SYSTEMS DESIGN ANALYST: Kev Aparicio Alice STATUS: inpatient INDICATIONS: The patient is a 56 yr old female here for an EGD due to acute post hemorrhagic anemia PROCEDURE PERFORMED: EGD, diagnostic MEDICATIONS: None and Per Anesthesia. TOPICAL ANESTHETIC: CONSENT: The patient understands the risks and benefits of the procedure and understands that these risks include, but are not limited to: sedation, allergic reaction, infection, perforation and/or bleeding. Alternative means of evaluation and treatment include, among others: physical exam, x-rays, and/or surgical intervention. The patient elects to proceed with this endoscopic procedure. medical equipment was checked for proper function. Hand hygiene and appropriate measures for infection prevention was taken. After the risks, benefits and alternatives of the procedure were thoroughly explained, Informed consent was verified, confirmed and timeout was successfully executed by the treatment team. The patient was anesthetized with topical anesthesia and the EC-[id number] (Pedi C) endoscope was introduced through the mouth and advanced to the second portion of the duodenum. Retroflexed views revealed a hiatal hernia The gastroscope was then slowly withdrawn and removed. ESOPHAGUS: There was short segment Guillaume's esophagus found in the distal esophagus. The length of circumferential Guillaume's was 1cm ([place] C1) and the length of Maximal extent of Guillaume's was 2cm ([place] M2). There was no nodular mucosa noted in the Guillaume's segment. STOMACH: There was erythematous severe gastritis in the gastric antrum. DUODENUM: The duodenal mucosa appeared normal in the bulb and second portion of the duodenum. ADVERSE EVENTS: There were no complications. IMPRESSIONS: 1. 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 There was erythematous gastritis in the gastric antrum 3. Normal duodenal mucosa in the bulb and second portion of the duodenum 4. Retroflexed views revealed a hiatal hernia RECOMMENDATIONS: 1. Anti-reflux regimen 2. Continue PPI 3. Avoid NSAIDS PATIENT CONDITION: stable DISPOSITION: Inpatient REPEAT EXAM: Return 6 months EGD Medications and IVs Current Medications Ondansetron HCl (Zofran Inj) 4 mg ONCE ONCE IVP ; Start 10/08/17 at 23:45; Stop 10/08/17 at 23:46; Status DC Sodium Chloride 1,000 ml @ 125 mls/hr Q8H IV Last administered on 10/08/17 23 :45; Start 10/08/17 at 23:31; Stop 10/09/17 at 01:51; Status DC Sodium Chloride (NS Flush) 2 ml UNSCH PRN IVF FLUSH AFTER USING IV ACCESS; Start 10/08/17 at 23:45; Stop 10/09/17 at 01:49; Status DC Sodium Chloride (NS Flush) 2 ml UNSCH PRN IVF FLUSH AFTER USING IV ACCESS; Start 10/09/17 at 00:15; Stop 10/09/17 at 01:49; Status DC Octreotide Acetate 500 mcg/ Sodium Chloride 500.5 ml @ 50 mls/hr Q10H1M IV Last administered on 10/11/17 13:39; Start 10/09/17 at 00:10 Pantoprazole Sodium 80 mg/ Sodium Chloride 35 ml @ 420 mls/hr Q5M ONCE IV Last administered on 10/09/17 01:06; Start 10/09/17 at 00:10; Stop 10/09/17 at 00:14; Status DC Pantoprazole Sodium 80 mg/ Sodium Chloride 100 ml @ 10 mls/hr Q10H IV Last administered on 10/11/17 13:39; Start 10/09/17 at 00:10 Folic Acid (Folate) 1 mg DAILY PO Last administered on 10/11/17 09:53; Start 10/09/17 at 09:00; Stop 10/14/17 at 08:59 Thiamine HCl (Vitamin B1) 100 mg DAILY PO Last administered on 10/11/17 09:53 ; Start 10/09/17 at 09:00 Multivitamins/ Minerals Therapeutic (Theragran M Tab) 1 tab DAILY PO Last administered on 10/11/17 09:54; Start 10/09/17 at 09:00; Stop 10/14/17 at 08:59 Flumazenil (Romazicon Inj) 0.2 mg Q1M PRN IV PUSH SEE LABEL COMMENTS; Start at 01:45 Lorazepam (Ativan) 1 mg Q4H PRN PO CIWA 8 - 10 Last administered on 10/09/17 14:28; Start 10/09/17 at 01:45 Lorazepam (Ativan Inj) 1 mg Q4H PRN IV PUSH CIWA 8 - 10; Start 10/09/17 at 01: 45 Lorazepam (Ativan) 2 mg Q2H PRN PO CIWA 11-14; Start 10/09/17 at 01:45 Lorazepam (Ativan Inj) 2 mg Q2H PRN IV PUSH CIWA 11-14; Start 10/09/17 at 01:45 Lorazepam (Ativan Inj) 2 mg Q1H PRN IV PUSH CIWA 15-20; Start 10/09/17 at 01:45 Lorazepam (Ativan Inj) 2 mg Q15M PRN IV PUSH CIWA > 20; Start 10/09/17 at 01:45 Haloperidol Lactate (Haldol Inj) 2 mg Q15M PRN IM SEE LABEL COMMENTS; Start at 01:45 Sodium Chloride 1,000 ml @ 100 mls/hr Q10H IV Last administered on 10/11/17 13:32; Start 10/09/17 at 01:32 Sodium Chloride (NS Flush) 2 ml UNSCH PRN IV FLUSH FLUSH AFTER USING IV ACCESS ; Start 10/09/17 at 01:45 Sodium Chloride (NS Flush) 2 ml BID IV FLUSH Last administered on 10/10/17 21: 00; Start 10/09/17 at 09:00 Ondansetron HCl (Zofran Inj) 4 mg Q6H PRN IVP NAUSEA OR VOMITING Last administered on 10/09/17 23:49; Start 10/09/17 at 01:45 Acetaminophen (Tylenol) 650 mg Q6H PRN PO FEVER; Start 10/09/17 at 01:45 Morphine Sulfate (Morphine Inj) 2 mg Q3H PRN IV PUSH Pain 6-10; Start 10/09/17 at 01:45 Oxycodone HCl (Roxicodone) 5 mg Q4H PRN PO PAIN SCALE 3 TO 5; Start 10/09/17 at 01:45 Senna/Docusate Sodium (Ashleigh-Colace) 1 tab BID PO Last administered on 09:50; Start 10/09/17 at 09:00 Magnesium Hydroxide (Milk Of Magnesia Liq) 30 ml Q12H PRN PO Mild constipation ; Start 10/09/17 at 01:45 Sennosides (Senokot) 17.2 mg Q12H PRN PO Moderate constipation; Start 10/09/17 at 01:45 Bisacodyl (Dulcolax Supp) 10 mg DAILY PRN RECTAL SEVERE CONSITIPATION; Start 10/09/17 at 01:45 Lactulose (Lactulose Liq) 30 ml DAILY PRN PO SEVERE CONSITIPATION; Start at 01:45 Pneumococcal Polyvalent Vaccine (Pneumovax-23 Inj) 25 mcg ONCE ONCE IM ; Start 10/10/17 at 10:00; Stop 10/10/17 at 10:01; Status DC Sucralfate (Carafate Liq) 1 gm ACHS PO Last administered on 10/11/17 13:38; Start 10/09/17 at 12:00 Polyethylene Glycol/ Electrolytes (Colyte Liq) 4,000 ml ONCE ONCE PO ; Start 10/09/17 at 11:30; Stop 10/09/17 at 12:05; Status DC Polyethylene Glycol/ Electrolytes (Colyte Liq) 4,000 ml ONCE ONCE PO Last administered on 10/10/17 17:52; Start 10/10/17 at 16:00; Stop 10/10/17 at 16:01 ; Status DC Dextrose (D50w (Vial) Inj) 50 ml UNSCH PRN IV PUSH HYPOGLYCEMIA-SEE COMMENTS; Start 10/09/17 at 19:15 Glucagon (Glucagon Inj) 1 mg UNSCH PRN OTHER HYPOGLYCEMIA-SEE COMMENTS; Start 10/09/17 at 19:15 Insulin Aspart (NovoLOG SUPPLEMENTAL SCALE) 1 ACHS SLIDING SCALE SQ ; Start at 21:00 Lactated Ringer's 1,000 ml @ 30 mls/hr Q24H PRN IV SEE LABEL COMMENTS; Start 10/09/17 at 22:00; Stop 10/12/17 at 21:59 Povidone Iodine (Betadine 5% Antisepsis Kit) 1 applic DEICER REPAIRER PNEUMATIC PRN EACH NARE SEE LABEL COMMENTS; Start 10/09/17 at 22:00; Stop 10/12/17 at 21:59 Chlorhexidine Gluconate (Chlorhexidine 2% Cloth) 3 pack DEICER REPAIRER PNEUMATIC PRN TOPICAL SEE LABEL COMMENTS; Start 10/09/17 at 22:00; Stop 10/12/17 at 21:59 Chlordiazepoxide (Librium) 10 mg TID PRN PO Shaking and DT's; Start 10/10/17 at 13:00 Chlordiazepoxide (Librium) 10 mg ONCE ONCE PO Last administered on 10/10/17 10:33; Start 10/10/17 at 10:15; Stop 10/10/17 at 10:16; Status DC A/P Problem List: (1) GI bleed ICD Code: K92.2 - Gastrointestinal hemorrhage, unspecified Status: Acute (2) Alcohol abuse ICD Code: F10.10 - Alcohol abuse, uncomplicated (3) Thrombocytopenia ICD Code: D69.6 - Thrombocytopenia, unspecified Assessment and Plan 56 year old female with PMH of HTN, anxiety, depression, alcohol abuse and GI bleed who presented to the ED. with complaints of bright red rectal bleeding for 2 weeks with increased fatigue. Gastrointestinal bleed, likely lower as she is having bright red blood in stool Anemia with thrombocytopenia - H&H has been stable, no more GI bleeding. - CT scan of the Abdomen/ Pelvis reviewed showing cirrhotic liver with portal hypertension with large recanalized periumbilical vein and prominent splenorenal collaterals. Small gastroesophageal varices, no ascites. Cholelithiasis present as well. - GI has been consulted and had advanced patient to clear liquid diet with plans for EGD and colonoscopy planned for today. - Pantoprazole, Octreotide IV & PO Carafate before meals and at HS Liver cirrhosis with thrombocytopenia likely secondary to alcohol abuse - Patient repots alcohol consumption at least 3 times a week, ethyl alcohol level on admission 343. - Advised on alcohol cessation and need to do this cautiously to avoid seizures from withdraw. - Hand shaking minimal today with no reported visual hallucinations. - On Thiamine, folate, and Multivitamin PO - PRN Librium and Ativan if needed, seizure precautions - CIWA protocol Atypical chest pain, ACS ruled out - Serial troponin negative - EKG done in ED reviewed, showing sinus tachycardia. - Likely related to GIB, anemia. VTE - Anticoagulation contraindicated due to GIB, SCD's and SIMIN's for now. HAD EGD AND COLONOSCOPY 12-4 SEE REPORTS Discharge Planning AM LABS Attending Statement The exam, history, and the medical decision-making described in the above note were completed with the assistance of the mid-level provider. I reviewed and agree with the findings presented. I attest that I had a [id number] encounter with the patient on the same day, and personally performed and documented my assessment and findings in the medical record. Problem Qualifiers (1) GI bleed: Qualified Codes: K92.2 - Gastrointestinal hemorrhage, unspecified JaradMichellscott DAN Oct 11, 2017 07:44 Kg Pitts DO Oct 11, 2017 15:50
[2017-10-11] MEDS: INSULIN ASPART SUPPLEMENTAL SCALE SQ SCH ×4 (08:00→21:00)
[2017-10-11 08:32] VITALS: BP 146/71; PULSE 82; RESP 19; TEMP 98.1; O2SAT 98
[2017-10-11] MEDS: SODIUM CHLORIDE 0.9% FLUSH 10 ML FLUSH IV FLUSH SCH ×2 (09:00→21:13)
[2017-10-11] MEDS: SUCRALFATE 1 GM/10 ML CUP PO SCH ×4 (09:53→21:13)
[2017-10-11] MEDS: THIAMINE HCL 100 MG TAB PO SCH (09:53)
[2017-10-11] MEDS: FOLIC ACID 1 MG TAB PO SCH (09:53)
[2017-10-11] MEDS: MULTIVITAMINS/MINERALS THERAPEUTIC TAB PO SCH (09:54)
[2017-10-11] MEDS: DOCUSATE SODIUM 50 MG/SENNA 8.6 MG TAB PO SCH ×2 (09:54→21:00)
[2017-10-11 11:44] VITALS: BP 149/83; PULSE 90; RESP 21; TEMP 97.9; O2SAT 98
[2017-10-11] MEDS ORDERED: LIDOCAINE HCL 1% PF 5 ML SYRINGE OTHER ONE (12:00)
[2017-10-11] MEDS ORDERED: PROPOFOL 200 MG/20 ML AMP IV ONE (12:00)
--- NOTE | 2017-10-11 15:21 | GIPROC ---
[facility] [address] [facility]. [facility], [address] EGD PROCEDURE REPORT EXAM DATE: 10/11/2017 PATIENT NAME: Kaitlin Rabago MR #: [id number] BIRTHDATE: 1960 ATTENDING: Asuncion Macias MD ORDER #: [id number] UPHOLSTERER LIMOUSINE AND HEARSE: Layla Aparicio and Arlen Maher STATUS: inpatient INDICATIONS: The patient is a 56 yr old female here for an EGD due to acute post hemorrhagic anemia PROCEDURE PERFORMED: EGD, diagnostic MEDICATIONS: None and Per Anesthesia. TOPICAL ANESTHETIC: CONSENT: The patient understands the risks and benefits of the procedure and understands that these risks include, but are not limited to: sedation, allergic reaction, infection, perforation and/or bleeding. Alternative means of evaluation and treatment include, among others: physical exam, x-rays, and/or surgical intervention. The patient elects to proceed with this endoscopic procedure. medical equipment was checked for proper function. Hand hygiene and appropriate measures for infection prevention was taken. After the risks, benefits and alternatives of the procedure were thoroughly explained, Informed consent was verified, confirmed and timeout was successfully executed by the treatment team. The patient was anesthetized with topical anesthesia and the EC-[id number] (Pedi C) endoscope was introduced through the mouth and advanced to the second portion of the duodenum. Retroflexed views revealed a hiatal hernia The gastroscope was then slowly withdrawn and removed. ESOPHAGUS: There was short segment Guillaume's esophagus found in the distal esophagus. The length of circumferential Guillaume's was 1cm ([place] C1) and the length of Maximal extent of Guillaume's was 2cm ([place] M2). There was no nodular mucosa noted in the Guillaume's segment. STOMACH: There was erythematous severe gastritis in the gastric antrum. DUODENUM: The duodenal mucosa appeared normal in the bulb and second portion of the duodenum. ADVERSE EVENTS: There were no complications. IMPRESSIONS: 1. 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 There was erythematous gastritis in the gastric antrum 3. Normal duodenal mucosa in the bulb and second portion of the duodenum 4. Retroflexed views revealed a hiatal hernia RECOMMENDATIONS: 1. Anti-reflux regimen 2. Continue PPI 3. Avoid NSAIDS PATIENT CONDITION: stable DISPOSITION: Inpatient REPEAT EXAM: Return 6 months EGD Asuncion Macias MD eSigned: Asuncion Macias MD 10/11/2017 3:21 PM cc: PATIENT NAME: Kaitlin Rabago Raad MR#: [id number]
--- NOTE | 2017-10-11 15:24 | GIPROC ---
[facility] [address] [facility]. [facility], [address] COLONOSCOPY PROCEDURE REPORT EXAM DATE: 10/11/2017 PATIENT NAME: Kaitlin Rabago MR #: [id number] BIRTHDATE: 1960 ENDOSCOPIST: Asuncion Macias MD ORDER #: [id number] DOBBY LOOMS PEGGER: Layla Aparicio and Arlen Maher STATUS: inpatient INDICATIONS: The patient is a 56 yr old female here for a colonoscopy due to iron deficiency anemia and hematochezia PROCEDURE PERFORMED: Colonoscopy with ablation MEDICATIONS: None and Per Anesthesia. PREP QUALITY: The [place] Bowel Prep Score was Right colon 2, Mid colon 2, and Left colon 3. Total = 7. PREP TYPE:GoLytely ESTIMATED BLOOD LOSS: None CONSENT: The patient understands the risks and benefits of the procedure and understands that these risks include, but are not limited to: sedation, allergic reaction, infection, perforation and/or bleeding. Alternative means of evaluation and treatment include, among others: physical exam, x-rays, and/or surgical intervention. The patient elects to proceed with this endoscopic procedure. medical equipment was checked for proper function. Hand hygiene and appropriate measures for infection prevention was taken. After the risks, benefits and alternatives of the procedure were thoroughly explained, Informed consent was verified, confirmed and timeout was successfully executed by the treatment team. A digital exam revealed external hemorrhoids The Pentax EC-[id number] endoscope was introduced through the anus and advanced to the cecum, which was identified by both the appendix and ileocecal valve. The instrument was then slowly withdrawn as the colon was fully examined. COLON FINDINGS: Moderate diverticulosis was noted in the ascending colon. A 5 x 5cm circumferential diffuse patch of colitis was found in the rectum. The mucosa was erythematous, friable and oozing blood. Destruction of tissue via ablation was attempted. Bleeding from maneuver treated with cautery. Argon plasma coagulation was used. Care was given to ensure that the lumen was suctioned well. A polypoid shaped sessile polyp ranging between 3-5mm in size was found in the ascending colon. Retroflexed views revealed internal hemorrhoids and Retroflexed views revealed small internal hemorrhoids The scope was then completely withdrawn from the patient and the procedure terminated. PROCEDURE WITHDRAWAL TIME:6minutes ADVERSE EVENTS: There were no complications. IMPRESSIONS: 1. Moderate diverticulosis was noted in the ascending colon 2. 5 x 5cm circumferential diffuse colitis was found in the rectum; The mucosa was erythematous, friable and oozing blood; Destruction of tissue via ablation was attempted 3. A sessile polyp ranging between 3-5mm in size was found in the ascending colon 4. Retroflexed views revealed internal hemorrhoids 5. Retroflexed views revealed small internal hemorrhoids 6. Revealed external hemorrhoids RECOMMENDATIONS: 1. Continue surveillance 2. High fiber diet 3. Yearly hemoccult 4. No seeds, nuts and popcorn in diet RECALL: Return 1 year Colonoscopy Asuncion Macias MD eSigned: Asuncion Macias MD 10/11/2017 3:24 PM cc: PATIENT NAME: Kaitlin Rabago MR#: [id number]
[2017-10-11 21:27] VITALS: BP 141/77; PULSE 86; RESP 17; TEMP 99.1; O2SAT 97
[2017-10-11 23:00] LABS: BICARBONATE 23.7 MEQ/L (21.0-32.0); CALCIUM-PROTEIN CORRECTED 7.7 MG/DL (8.5-10.1); POTASSIUM 3.4 MEQ/L (3.5-5.1)
[2017-10-11 23:01] LABS: TOTAL BILIRUBIN ADULT 6.2 MG/DL (0.2-1.0)
[2017-10-12 00:53] VITALS: BP 131/74; PULSE 91; RESP 17; TEMP 99; O2SAT 96
[2017-10-12 05:42] LABS: AUTOMATED NEUTROPHIL # 2.1 TH/MM3 (1.8-7.7); BASOPHIL % 0.5 % (0.0-2.0); EOSINOPHIL # 0.1 TH/MM3 (0-0.4); EOSINOPHIL % 3.4 % (0.0-4.0); HEMATOCRIT 26.8 % (35.0-46.0); LYMPH % 23.3 % (9.0-44.0); LYMPHOCYTE # 0.7 TH/MM3 (1.0-4.8); MEAN CELL VOLUME 95.4 FL (80.0-100.0); MEAN CORPUSCULAR HEMOGLOBIN 32.9 PG (27.0-34.0); MEAN CORPUSCULAR HGB CONC 34.5 % (32.0-36.0); MONO % 7.4 % (0.0-8.0); NEUT % 65.4 % (16.0-70.0); PLATELET COUNT 26 TH/MM3 (150-450); RED BLOOD COUNT 2.81 MIL/MM3 (4.00-5.30); RED CELL DISTRIBUTION WIDTH 15.7 % (11.6-17.2); WHITE BLOOD COUNT 3.2 TH/MM3 (4.0-11.0)
[2017-10-12 05:46] LABS: INTERNATIONAL NORMALIZED RATIO 1.7 RATIO; PROTHROMBIN TIME - PATIENT 16.8 SEC (9.8-11.6)
[2017-10-12 05:48] LABS: HEMO FLAGS AUTO DIFF
[2017-10-12 06:13] LABS: ALKALINE PHOSPHATASE 118 U/L (45-117); ALT (GPT) 22 U/L (10-53); FREE T4 1.05 NG/DL (0.76-1.46); TOTAL BILIRUBIN ADULT 5.8 MG/DL (0.2-1.0)
[2017-10-12 06:14] LABS: ANION GAP 8 MEQ/L (5-15); AST (GOT) 58 U/L (15-37); BICARBONATE 24.7 MEQ/L (21.0-32.0); BLOOD UREA NITROGEN 5 MG/DL (7-18); CHLORIDE 105 MEQ/L (98-107); GLOMERULAR FILTRATION RATE 104 ML/MIN (>89); MAGNESIUM 1.2 MG/DL (1.5-2.5); POTASSIUM 3.4 MEQ/L (3.5-5.1); SODIUM (NA) 138 MEQ/L (136-145)
[2017-10-12 07:23] LABS: BANDS 16 % (0-6); BASOPHILS 1 % (0-2); CORRECTED NUCLEATED RBC 1 /100 WBC (0-0); EOSINOPHILS 3 % (0-4); NEUTROPHIL # MANUAL DIFF 2.4 TH/MM3 (1.8-7.7); PLATELET ESTIMATE SMEAR LOW (NORMAL); PLATELET MORPHOLOGY NORMAL (NORMAL); POLYS (SEG NEUTROPHILS) 60 % (16-70); WBC DIFF SAMPLE 100
[2017-10-12 07:24] LABS: SCAN/DIFF FINAL DIFF MANUAL
[2017-10-12] MEDS: OCTREOTIDE INJ 500 MCG in SODIUM CHLORID 0.9% 500 ML INJ 500 ML IV SCH ×2 (08:18→21:15)
[2017-10-12] MEDS ORDERED: POTASSIUM CHLORIDE 10 MEQ CONTROLLED RELEASE TAB PO ONE (08:45)
[2017-10-12] MEDS: DOCUSATE SODIUM 50 MG/SENNA 8.6 MG TAB PO SCH ×2 (09:00→21:17)
[2017-10-12] MEDS ORDERED: PANTOPRAZOLE SOD 40 MG DELAYED RELEASE TAB PO SCH (09:00)
[2017-10-12] MEDS: SODIUM CHLORIDE 0.9% FLUSH 10 ML FLUSH IV FLUSH SCH ×2 (09:00→21:15)
[2017-10-12] MEDS: MULTIVITAMINS/MINERALS THERAPEUTIC TAB PO SCH (09:00)
[2017-10-12] MEDS ORDERED: LACTULOSE SYRUP 20 GM/30 ML CUP PO SCH (09:00)
[2017-10-12] MEDS: MAGNESIUM SULFATE 1 GM PREMIX 100 ML IV SCH ×2 (10:08→11:32)
[2017-10-12] MEDS: MAGNESIUM OXIDE 400 MG TAB PO SCH (10:09)
[2017-10-12] MEDS: FOLIC ACID 1 MG TAB PO SCH (10:09)
[2017-10-12] MEDS: THIAMINE HCL 100 MG TAB PO SCH (10:09)
[2017-10-12] MEDS: SUCRALFATE 1 GM/10 ML CUP PO SCH ×4 (10:10→21:17)
[2017-10-12 11:46] VITALS: BP 153/74; PULSE 92; RESP 20; TEMP 98.4; O2SAT 97
[2017-10-12 13:02] LABS: CALCIUM-PROTEIN CORRECTED 7.8 MG/DL (8.5-10.1)
--- NOTE | 2017-10-12 13:09 | HHI.PR ---
Subjective Remarks Follow-up visit on a 56-year-old female with past medical history of hypertension, anxiety, depression, and alcohol abuse who presented on 10/09 to the ED with complaints of rectal bleeding for the past 2 weeks. Patient was seen and examined this morning in CDU resting comfortably. She denies any vomiting although does report some nausea overnight, nice any black or bloody stools overnight. She is aware that she will be going today for upper and lower endoscopy. She denies any SOB, chest pains, fevers or chills overnight. She denies any hallucinations or shakiness. HAD EGD AND COLONOSCOPY PATIENT IS VERY JAUNDICED AM LABS PT AND OT 10-12 HAVING BLEEDING IN HER MOUTH STILL JAUNDICED DW RN AND PT WILL GIVE VITAMIN K CONTINUE ON PROTONIX IV BID Objective Vitals Vital Signs Date Time Temp Pulse Resp B/P (MAP) Pulse Ox O2 Delivery O2 Flow Rate FiO2 10/12/17 11:46 98.4 92 20 153/74 (100) 97 10/12/17 01:12 22 10/12/17 00:53 99.0 91 17 131/74 (93) 96 10/11/17 21:27 99.1 86 17 141/77 (98) 97 10/11/17 15:39 97.8 80 18 128/61 (83) 97 I/O 10/11/17 10/11/17 10/11/17 10/12/17 10/12/17 10/12/17 07:00 15:00 23:00 07:00 15:00 23:00 Intake Total 200 ml Balance 200 ml Intake IV Total 200 ml # Voids 6 Result Diagram: 10/12/17 0516 10/12/17 0516 Other Results Laboratory Tests Test 10/09/17 13:35 10/09/17 19:50 10/10/17 02:47 10/10/17 13:14 Troponin I LESS THAN 0.02 NG/ML LESS THAN 0.02 NG/ML LESS THAN 0.02 NG/ML Hemoglobin A1c 4.8 % Iron Level 193 MCG/DL Total Iron Binding Capacity 217 MCG/DL Percent Iron Saturation 88.9 % Ferritin 256 NG/ML White Blood Count 2.1 TH/MM3 Red Blood Count 2.98 MIL/MM3 Hemoglobin 9.8 GM/DL Hematocrit 28.4 % Mean Corpuscular Volume 95.2 FL Mean Corpuscular Hemoglobin 32.9 PG Mean Corpuscular Hemoglobin Concent 34.6 % Red Cell Distribution Width 15.1 % Platelet Count 30 TH/MM3 Mean Platelet Volume 8.4 FL Neutrophils (%) (Auto) 63.6 % Lymphocytes (%) (Auto) 23.2 % Monocytes (%) (Auto) 8.4 % Eosinophils (%) (Auto) 4.3 % Basophils (%) (Auto) 0.5 % Neutrophils # (Auto) 1.3 TH/MM3 Lymphocytes # (Auto) 0.5 TH/MM3 Monocytes # (Auto) 0.2 TH/MM3 Eosinophils # (Auto) 0.1 TH/MM3 Basophils # (Auto) 0.0 TH/MM3 CBC Comment AUTO DIFF Differential Comment AUTO DIFF CONFIRMED Platelet Estimate LOW Platelet Morphology Comment NORMAL Prothrombin Time 15.3 SEC Prothromb Time International Ratio 1.5 RATIO Blood Urea Nitrogen 5 MG/DL Creatinine 0.47 MG/DL Random Glucose 145 MG/DL Total Protein 7.0 GM/DL Albumin 2.8 GM/DL Calcium Level 7.9 MG/DL Alkaline Phosphatase 120 U/L Aspartate Amino Transf (AST/SGOT) 75 U/L Alanine Aminotransferase (ALT/SGPT) 23 U/L Total Bilirubin 7.3 MG/DL Sodium Level 139 MEQ/L Potassium Level 3.5 MEQ/L Chloride Level 105 MEQ/L Carbon Dioxide Level 25.6 MEQ/L Anion Gap 8 MEQ/L Estimat Glomerular Filtration Rate 138 ML/MIN Test 10/11/17 06:12 10/11/17 22:00 10/12/17 05:16 Blood Urea Nitrogen 5 MG/DL 5 MG/DL Creatinine 0.94 MG/DL 0.60 MG/DL Random Glucose 161 MG/DL 110 MG/DL Total Protein 6.6 GM/DL 6.8 GM/DL Albumin 2.6 GM/DL 2.6 GM/DL Calcium Level 7.4 MG/DL 7.6 MG/DL Alkaline Phosphatase 103 U/L 118 U/L Aspartate Amino Transf (AST/SGOT) 56 U/L 58 U/L Alanine Aminotransferase (ALT/SGPT) 20 U/L 22 U/L Total Bilirubin 6.2 MG/DL 5.8 MG/DL Sodium Level 138 MEQ/L 138 MEQ/L Potassium Level 3.4 MEQ/L 3.4 MEQ/L Chloride Level 105 MEQ/L 105 MEQ/L Carbon Dioxide Level 23.7 MEQ/L 24.7 MEQ/L Anion Gap 9 MEQ/L 8 MEQ/L Estimat Glomerular Filtration Rate 62 ML/MIN 104 ML/MIN Protein Corrected Calcium 7.7 MG/DL White Blood Count 3.2 TH/MM3 Red Blood Count 2.81 MIL/MM3 Hemoglobin 9.2 GM/DL Hematocrit 26.8 % Mean Corpuscular Volume 95.4 FL Mean Corpuscular Hemoglobin 32.9 PG Mean Corpuscular Hemoglobin Concent 34.5 % Red Cell Distribution Width 15.7 % Platelet Count 26 TH/MM3 Mean Platelet Volume 8.3 FL Neutrophils (%) (Auto) 65.4 % Lymphocytes (%) (Auto) 23.3 % Monocytes (%) (Auto) 7.4 % Eosinophils (%) (Auto) 3.4 % Basophils (%) (Auto) 0.5 % Neutrophils # (Auto) 2.1 TH/MM3 Lymphocytes # (Auto) 0.7 TH/MM3 Monocytes # (Auto) 0.2 TH/MM3 Eosinophils # (Auto) 0.1 TH/MM3 Basophils # (Auto) 0.0 TH/MM3 CBC Comment AUTO DIFF Differential Total Cells Counted 100 Neutrophils % (Manual) 60 % Band Neutrophils % 16 % Lymphocytes % 16 % Monocytes % 4 % Eosinophils % 3 % Basophils % 1 % Neutrophils # (Manual) 2.4 TH/MM3 Nucleated Red Blood Cells 1 /100 WBC Differential Comment FINAL DIFF MANUAL Platelet Estimate LOW Platelet Morphology Comment NORMAL Prothrombin Time 16.8 SEC Prothromb Time International Ratio 1.7 RATIO Phosphorus Level 3.0 MG/DL Magnesium Level 1.2 MG/DL Ammonia 102 MCMOL/L Free Thyroxine 1.05 NG/DL Thyroid Stimulating Hormone 3rd Gen 1.760 uIU/ML Imaging Last Impressions Abdomen/Pelvis CT 10/09/17 0000 Signed Impressions: Service Date/Time: Monday, October 09, 2017 13:05 - CONCLUSION: 1. Cirrhotic liver with portal hypertension including large recanalized periumbilical vein and prominent splenorenal collaterals. There are small gastroesophageal varices. No significant ascites. 2. Cholelithiasis. 3. Otherwise, no definite acute animality. Yoel Winters MD Objective Remarks GENERAL: Awake and alert and oriented very yellow in appearance and jaundiced SKIN: Warm and dry. HEAD: Atraumatic. Normocephalic. EYES: Pupils equal and round. Positive scleral icterus. No injection or drainage. Extraocular muscles intact ENT: No nasal bleeding or discharge. Mucous membranes pink and moist. Tongue is midline NECK: Trachea midline. No JVD. Supple CARDIOVASCULAR: Regular rate and rhythm. S1 and S2 no S3-S4 no heave or thrill or rub or gallop RESPIRATORY: No accessory muscle use. Clear to auscultation. Breath sounds equal bilaterally. GASTROINTESTINAL: Abdomen soft, non-tender, nondistended. Hepatic and splenic margins not palpable. Obese MUSCULOSKELETAL: Extremities without clubbing, cyanosis, or edema. No obvious deformities. NEUROLOGICAL: Awake and alert. No obvious cranial nerve deficits. Motor grossly within normal limits. Five out of 5 muscle strength in the arms and legs. Normal speech. PSYCHIATRIC: INAppropriate mood and affect; insight and judgment ABnormal. Procedures COLONOSCOPY PROCEDURE REPORT EXAM DATE: 10/11/2017 PATIENT NAME: Kaitlin Rabago MR #: [id number] BIRTHDATE: 1960 ENDOSCOPIST: Asuncion Macias MD ORDER #: [id number] LOG CHECK SCALER: Layla Aparicio and Arlen Maher STATUS: inpatient INDICATIONS: The patient is a 56 yr old female here for a colonoscopy due to iron deficiency anemia and hematochezia PROCEDURE PERFORMED: Colonoscopy with ablation MEDICATIONS: None and Per Anesthesia. PREP QUALITY: The [place] Bowel Prep Score was Right colon 2, Mid colon 2, and Left colon 3. Total = 7. PREP TYPE:GoLytely ESTIMATED BLOOD LOSS: None CONSENT: The patient understands the risks and benefits of the procedure and understands that these risks include, but are not limited to: sedation, allergic reaction, infection, perforation and/or bleeding. Alternative means of evaluation and treatment include, among others: physical exam, x-rays, and/or surgical intervention. The patient elects to proceed with this endoscopic procedure. medical equipment was checked for proper function. Hand hygiene and appropriate measures for infection prevention was taken. After the risks, benefits and alternatives of the procedure were thoroughly explained, Informed consent was verified, confirmed and timeout was successfully executed by the treatment team. A digital exam revealed external hemorrhoids The Pentax EC-[id number] endoscope was introduced through the anus and advanced to the cecum, which was identified by both the appendix and ileocecal valve. The instrument was then slowly withdrawn as the colon was fully examined. COLON FINDINGS: Moderate diverticulosis was noted in the ascending colon. A 5 x 5cm circumferential diffuse patch of colitis was found in the rectum. The mucosa was erythematous, friable and oozing blood. Destruction of tissue via ablation was attempted. Bleeding from maneuver treated with cautery. Argon plasma coagulation was used. Care was given to ensure that the lumen was suctioned well. A polypoid shaped sessile polyp ranging between 3-5mm in size was found in the ascending colon. Retroflexed views revealed internal hemorrhoids and Retroflexed views revealed small internal hemorrhoids The scope was then completely withdrawn from the patient and the procedure terminated. PROCEDURE WITHDRAWAL TIME:6minutes ADVERSE EVENTS: There were no complications. IMPRESSIONS: 1. Moderate diverticulosis was noted in the ascending colon 2. 5 x 5cm circumferential diffuse colitis was found in the rectum; The mucosa was erythematous, friable and oozing blood; Destruction of tissue via ablation was attempted 3. A sessile polyp ranging between 3-5mm in size was found in the ascending colon 4. Retroflexed views revealed internal hemorrhoids 5. Retroflexed views revealed small internal hemorrhoids 6. Revealed external hemorrhoids RECOMMENDATIONS: 1. Continue surveillance 2. High fiber diet 3. Yearly hemoccult 4. No seeds, nuts and popcorn in diet RECALL: Return 1 year Colonoscopy Asuncion Macias MD eSigned: Asuncion Macias MD 10/11/2017 3:24 PM EGD PROCEDURE REPORT EXAM DATE: 10/11/2017 PATIENT NAME: Kaitlin Rabago MR #: [id number] BIRTHDATE: 1960 ATTENDING: Asuncion Macias MD ORDER #: [id number] LOG CHECK SCALER: Layla Aparicio and Arlen Maher STATUS: inpatient INDICATIONS: The patient is a 56 yr old female here for an EGD due to acute post hemorrhagic anemia PROCEDURE PERFORMED: EGD, diagnostic MEDICATIONS: None and Per Anesthesia. TOPICAL ANESTHETIC: CONSENT: The patient understands the risks and benefits of the procedure and understands that these risks include, but are not limited to: sedation, allergic reaction, infection, perforation and/or bleeding. Alternative means of evaluation and treatment include, among others: physical exam, x-rays, and/or surgical intervention. The patient elects to proceed with this endoscopic procedure. medical equipment was checked for proper function. Hand hygiene and appropriate measures for infection prevention was taken. After the risks, benefits and alternatives of the procedure were thoroughly explained, Informed consent was verified, confirmed and timeout was successfully executed by the treatment team. The patient was anesthetized with topical anesthesia and the EC-[id number] (Pedi C) endoscope was introduced through the mouth and advanced to the second portion of the duodenum. Retroflexed views revealed a hiatal hernia The gastroscope was then slowly withdrawn and removed. ESOPHAGUS: There was short segment Guillaume's esophagus found in the distal esophagus. The length of circumferential Guillaume's was 1cm ([place] C1) and the length of Maximal extent of Guillaume's was 2cm ([place] M2). There was no nodular mucosa noted in the Guillaume's segment. STOMACH: There was erythematous severe gastritis in the gastric antrum. DUODENUM: The duodenal mucosa appeared normal in the bulb and second portion of the duodenum. ADVERSE EVENTS: There were no complications. IMPRESSIONS: 1. 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 There was erythematous gastritis in the gastric antrum 3. Normal duodenal mucosa in the bulb and second portion of the duodenum 4. Retroflexed views revealed a hiatal hernia RECOMMENDATIONS: 1. Anti-reflux regimen 2. Continue PPI 3. Avoid NSAIDS PATIENT CONDITION: stable DISPOSITION: Inpatient REPEAT EXAM: Return 6 months EGD Medications and IVs Current Medications Ondansetron HCl (Zofran Inj) 4 mg ONCE ONCE IVP ; Start 10/08/17 at 23:45; Stop 10/08/17 at 23:46; Status DC Sodium Chloride 1,000 ml @ 125 mls/hr Q8H IV Last administered on 10/08/17t 23 :45; Start 10/08/17 at 23:31; Stop 10/09/17 at 01:51; Status DC Sodium Chloride (NS Flush) 2 ml UNSCH PRN IVF FLUSH AFTER USING IV ACCESS; Start 10/08/17 at 23:45; Stop 10/09/17 at 01:49; Status DC Sodium Chloride (NS Flush) 2 ml UNSCH PRN IVF FLUSH AFTER USING IV ACCESS; Start 10/09/17 at 00:15; Stop 10/09/17 at 01:49; Status DC Octreotide Acetate 500 mcg/ Sodium Chloride 500.5 ml @ 50 mls/hr Q10H1M IV Last administered on 10/12/17 08:18; Start 10/09/17 at 00:10 Pantoprazole Sodium 80 mg/ Sodium Chloride 35 ml @ 420 mls/hr Q5M ONCE IV Last administered on 10/09/17 01:06; Start 10/09/17 at 00:10; Stop 10/09/17 at 00:14; Status DC Pantoprazole Sodium 80 mg/ Sodium Chloride 100 ml @ 10 mls/hr Q10H IV Last administered on 10/11/17 21:16; Start 10/09/17 at 00:10; Stop 10/12/17 at 08:27 ; Status DC Folic Acid (Folate) 1 mg DAILY PO Last administered on 10/12/17 10:09; Start 10/09/17 at 09:00; Stop 10/14/17 at 08:59 Thiamine HCl (Vitamin B1) 100 mg DAILY PO Last administered on 10/12/17 10:09 ; Start 10/09/17 at 09:00 Multivitamins/ Minerals Therapeutic (Theragran M Tab) 1 tab DAILY PO Last administered on 10/12/17 09:00; Start 10/09/17 at 09:00; Stop 10/14/17 at 08:59 Flumazenil (Romazicon Inj) 0.2 mg Q1M PRN IV PUSH SEE LABEL COMMENTS; Start at 01:45 Lorazepam (Ativan) 1 mg Q4H PRN PO CIWA 8 - 10 Last administered on 10/09/17 14:28; Start 10/09/17 at 01:45 Lorazepam (Ativan Inj) 1 mg Q4H PRN IV PUSH CIWA 8 - 10; Start 10/09/17 at 01: 45 Lorazepam (Ativan) 2 mg Q2H PRN PO CIWA 11-14; Start 10/09/17 at 01:45 Lorazepam (Ativan Inj) 2 mg Q2H PRN IV PUSH CIWA 11-14; Start 10/09/17 at 01:45 Lorazepam (Ativan Inj) 2 mg Q1H PRN IV PUSH CIWA 15-20; Start 10/09/17 at 01:45 Lorazepam (Ativan Inj) 2 mg Q15M PRN IV PUSH CIWA > 20; Start 10/09/17 at 01:45 Haloperidol Lactate (Haldol Inj) 2 mg Q15M PRN IM SEE LABEL COMMENTS; Start at 01:45 Sodium Chloride 1,000 ml @ 100 mls/hr Q10H IV Last administered on 10/11/17 13:32; Start 10/09/17 at 01:32 Sodium Chloride (NS Flush) 2 ml UNSCH PRN IV FLUSH FLUSH AFTER USING IV ACCESS ; Start 10/09/17 at 01:45 Sodium Chloride (NS Flush) 2 ml BID IV FLUSH Last administered on 10/11/17 21: 13; Start 10/09/17 at 09:00 Ondansetron HCl (Zofran Inj) 4 mg Q6H PRN IVP NAUSEA OR VOMITING Last administered on 10/09/17 23:49; Start 10/09/17 at 01:45 Acetaminophen (Tylenol) 650 mg Q6H PRN PO FEVER; Start 10/09/17 at 01:45 Morphine Sulfate (Morphine Inj) 2 mg Q3H PRN IV PUSH Pain 6-10; Start 10/09/17 at 01:45 Oxycodone HCl (Roxicodone) 5 mg Q4H PRN PO PAIN SCALE 3 TO 5 Last administered on 10/12/17 12:14; Start 10/09/17 at 01:45 Senna/Docusate Sodium (Ashleigh-Colace) 1 tab BID PO Last administered on 09:50; Start 10/09/17 at 09:00 Magnesium Hydroxide (Milk Of Magnesia Liq) 30 ml Q12H PRN PO Mild constipation ; Start 10/09/17 at 01:45 Sennosides (Senokot) 17.2 mg Q12H PRN PO Moderate constipation; Start 10/09/17 at 01:45 Bisacodyl (Dulcolax Supp) 10 mg DAILY PRN RECTAL SEVERE CONSITIPATION; Start 10/09/17 at 01:45 Lactulose (Lactulose Liq) 30 ml DAILY PRN PO SEVERE CONSITIPATION; Start at 01:45 Pneumococcal Polyvalent Vaccine (Pneumovax-23 Inj) 25 mcg ONCE ONCE IM ; Start 10/10/17 at 10:00; Stop 10/10/17 at 10:01; Status DC Sucralfate (Carafate Liq) 1 gm ACHS PO Last administered on 10/12/17t 12:13; Start 10/09/17 at 12:00 Polyethylene Glycol/ Electrolytes (Colyte Liq) 4,000 ml ONCE ONCE PO ; Start 10/09/17 at 11:30; Stop 10/09/17 at 12:05; Status DC Polyethylene Glycol/ Electrolytes (Colyte Liq) 4,000 ml ONCE ONCE PO Last administered on 10/10/17 17:52; Start 10/10/17 at 16:00; Stop 10/10/17 at 16:01 ; Status DC Dextrose (D50w (Vial) Inj) 50 ml UNSCH PRN IV PUSH HYPOGLYCEMIA-SEE COMMENTS; Start 10/09/17 at 19:15; Stop 10/12/17 at 07:56; Status DC Glucagon (Glucagon Inj) 1 mg UNSCH PRN OTHER HYPOGLYCEMIA-SEE COMMENTS; Start 10/09/17 at 19:15; Stop 10/12/17 at 07:56; Status DC Insulin Aspart (NovoLOG SUPPLEMENTAL SCALE) 1 ACHS SLIDING SCALE SQ ; Start at 21:00; Stop 10/12/17 at 07:56; Status DC Lactated Ringer's 1,000 ml @ 30 mls/hr Q24H PRN IV SEE LABEL COMMENTS; Start 10/09/17 at 22:00; Stop 10/12/17 at 21:59 Povidone Iodine (Betadine 5% Antisepsis Kit) 1 applic CHANGE ADVISOR PRN EACH NARE SEE LABEL COMMENTS; Start 10/09/17 at 22:00; Stop 10/12/17 at 21:59 Chlorhexidine Gluconate (Chlorhexidine 2% Cloth) 3 pack CHANGE ADVISOR PRN TOPICAL SEE LABEL COMMENTS; Start 10/09/17 at 22:00; Stop 10/12/17 at 21:59 Chlordiazepoxide (Librium) 10 mg TID PRN PO Shaking and DT's; Start 10/10/17 at 13:00 Chlordiazepoxide (Librium) 10 mg ONCE ONCE PO Last administered on 10/10/17 10:33; Start 10/10/17 at 10:15; Stop 10/10/17 at 10:16; Status DC Magnesium Sulfate/ Dextrose 100 ml @ 100 mls/hr Q1H IV Last administered on 11:32; Start 10/12/17 at 08:45; Stop 10/12/17 at 10:44; Status DC Magnesium Oxide (Mag-Ox) 800 mg DAILY@1100 PO Last administered on 10/12/17 10 :09; Start 10/12/17 at 11:00 Potassium Chloride (KCl) 30 meq ONCE ONCE PO Last administered on 10/12/17 10 :08; Start 10/12/17 at 08:45; Stop 10/12/17 at 08:46; Status DC Lactulose (Lactulose Liq) 30 ml BID PO ; Start 10/12/17 at 09:00 Pantoprazole Sodium (Protonix) 40 mg BID PO Last administered on 10/12/17 10: 10; Start 10/12/17 at 09:00; Stop 10/12/17 at 11:13; Status DC Pantoprazole Sodium (Protonix Inj) 40 mg Q12HR IV PUSH ; Start 10/12/17 at 21:00 A/P Problem List: (1) GI bleed ICD Code: K92.2 - Gastrointestinal hemorrhage, unspecified Status: Acute (2) Alcohol abuse ICD Code: F10.10 - Alcohol abuse, uncomplicated (3) Thrombocytopenia ICD Code: D69.6 - Thrombocytopenia, unspecified Assessment and Plan 56 year old female with PMH of HTN, anxiety, depression, alcohol abuse and GI bleed who presented to the ED. with complaints of bright red rectal bleeding for 2 weeks with increased fatigue. Gastrointestinal bleed, likely lower as she is having bright red blood in stool Anemia with thrombocytopenia - H&H has been stable, no more GI bleeding. - CT scan of the Abdomen/ Pelvis reviewed showing cirrhotic liver with portal hypertension with large recanalized periumbilical vein and prominent splenorenal collaterals. Small gastroesophageal varices, no ascites. Cholelithiasis present as well. - GI has been consulted and had advanced patient to clear liquid diet with plans for EGD and colonoscopy planned for today. - Pantoprazole, Octreotide IV & PO Carafate before meals and at HS Liver cirrhosis with thrombocytopenia likely secondary to alcohol abuse - Patient repots alcohol consumption at least 3 times a week, ethyl alcohol level on admission 343. - Advised on alcohol cessation and need to do this cautiously to avoid seizures from withdraw. - Hand shaking minimal today with no reported visual hallucinations. - On Thiamine, folate, and Multivitamin PO - PRN Librium and Ativan if needed, seizure precautions - CIWA protocol Atypical chest pain, ACS ruled out - Serial troponin negative - EKG done in ED reviewed, showing sinus tachycardia. - Likely related to GIB, anemia. VTE - Anticoagulation contraindicated due to GIB, SCD's and SIMIN's for now. HYPOKALEMIA WILL REPLACE HYPOMAG WILL REPLACE HAD EGD AND COLONOSCOPY 12-4 SEE REPORTS POOR PROGNOSIS Discharge Planning AM LABS FULL ADMIT Problem Qualifiers (1) GI bleed: Qualified Codes: K92.2 - Gastrointestinal hemorrhage, unspecified Kg Pitts DO Oct 12, 2017 13:09
[2017-10-12] MEDS ORDERED: PHYTONADIONE 10 MG/ML VIAL SQ ONE (13:15)
[2017-10-12 16:04] LABS: HEMOGLOBIN A1a 0.9 %; HEMOGLOBIN A1b 1.1 %; HEMOGLOBIN Ao 88.2 %; HEMOGLOBIN LA1C 1.7 %; HEMOGLOBIN P3 3.1 %
[2017-10-12] MEDS: SODIUM CHLOR 0.9% 1000 ML INJ 1,000 ML IV SCH ×2 (16:06→21:15)
--- NOTE | 2017-10-12 16:10 | HHI.GIFU ---
Subjective Remarks Pt resting in bed. Having BRBPR with stool still, bleeding from mouth. Some nausea, no vomiting. C/O feeling very tired, cannot stay awake (Mai Weaver) Objective Vitals I&O Vital Signs Date Time Temp Pulse Resp B/P (MAP) Pulse Ox O2 Delivery O2 Flow Rate FiO2 10/12/17 13:28 18 10/12/17 11:46 98.4 92 20 153/74 (100) 97 10/12/17 00:53 99.0 91 17 131/74 (93) 96 10/11/17 21:27 99.1 86 17 141/77 (98) 97 I/O 10/11/17 10/11/17 10/11/17 10/12/17 10/12/17 10/12/17 07:00 15:00 23:00 07:00 15:00 23:00 Intake Total 200 ml 100 ml Balance 200 ml 100 ml Intake IV Total 200 ml 100 ml # Voids 6 Laboratory Laboratory Tests Test 10/11/17 22:00 10/12/17 05:16 Blood Urea Nitrogen 5 5 Creatinine 0.94 0.60 Random Glucose 161 110 Total Protein 6.6 6.8 Albumin 2.6 2.6 Calcium Level 7.4 7.6 Alkaline Phosphatase 103 118 Aspartate Amino Transf (AST/SGOT) 56 58 Alanine Aminotransferase (ALT/SGPT) 20 22 Total Bilirubin 6.2 5.8 Sodium Level 138 138 Potassium Level 3.4 3.4 Chloride Level 105 105 Carbon Dioxide Level 23.7 24.7 Anion Gap 9 8 Estimat Glomerular Filtration Rate 62 104 Protein Corrected Calcium 7.7 7.8 White Blood Count 3.2 Red Blood Count 2.81 Hemoglobin 9.2 Hematocrit 26.8 Mean Corpuscular Volume 95.4 Mean Corpuscular Hemoglobin 32.9 Mean Corpuscular Hemoglobin Concent 34.5 Red Cell Distribution Width 15.7 Platelet Count 26 Mean Platelet Volume 8.3 Neutrophils (%) (Auto) 65.4 Lymphocytes (%) (Auto) 23.3 Monocytes (%) (Auto) 7.4 Eosinophils (%) (Auto) 3.4 Basophils (%) (Auto) 0.5 Neutrophils # (Auto) 2.1 Lymphocytes # (Auto) 0.7 Monocytes # (Auto) 0.2 Eosinophils # (Auto) 0.1 Basophils # (Auto) 0.0 CBC Comment AUTO DIFF Differential Total Cells Counted 100 Neutrophils % (Manual) 60 Band Neutrophils % 16 Lymphocytes % 16 Monocytes % 4 Eosinophils % 3 Basophils % 1 Neutrophils # (Manual) 2.4 Nucleated Red Blood Cells 1 Differential Comment FINAL DIFF MANUAL Platelet Estimate LOW Platelet Morphology Comment NORMAL Prothrombin Time 16.8 Prothromb Time International Ratio 1.7 Phosphorus Level 3.0 Magnesium Level 1.2 Ammonia 102 Free Thyroxine 1.05 Thyroid Stimulating Hormone 3rd Gen 1.760 Imaging Last Impressions Abdomen/Pelvis CT 10/09/17 0000 Signed Impressions: Service Date/Time: Monday, October 09, 2017 13:05 - CONCLUSION: 1. Cirrhotic liver with portal hypertension including large recanalized periumbilical vein and prominent splenorenal collaterals. There are small gastroesophageal varices. No significant ascites. 2. Cholelithiasis. 3. Otherwise, no definite acute animality. Yoel Winters MD Physical Exam HEENT: Normocephalic; atraumatic; + jaundice. CHEST: CTA CARDIAC: RRR ABDOMEN: Soft, distended, nontender; hepatomegaly; bowel sounds are present in all four quadrants. EXTREMITIES: no edema SKIN: Normal; no rash; + jaundice. TRANSPORTATION SECURITY OFFICER: AO3 (Mai Weaver WIRE COATING OPERATOR METAL) Assessment and Plan Plan Assessment: - Rectal bleeding x 2 weeks, hematochezia- History of PUD. s/p colonoscopy 10/11/17 found 5x5cm circumferential colitis that was friable and oozing blood s/p APC. EGD found Guillaume's, erythematous gastritis - Alcoholic hepatitis/cirrhosis- Pt reports having one paracentesis in the past , approx a year ago. CT Abdomen & pelvis W/O IV contrast (10/09) --> cirrhosis, portal HTN, varices, cholelithiasis. c /o fatigue, NH elevated, lactulose QID. - Transaminitis- etiology most likely related to ETOH. - Anemia- normocytic- most likely related to active bleed. Iron-193 TIBC-217 % Sat- 88.9 Ferritin-256 Hemochromatosis labs pending - thrombocytopenia - PLT decreasing - coagulopathy - INR trending up. vit k. - Nausea- Zofran as needed Plan - IV solumedrol - cont protonix - Octreotide gtt - Monitor labs - Transfuse as needed - Notify GI of any active bleeding - Further recommendations to follow based on results of above Patient has been seen and examined by myself and Dr. Macias and this note is written on his behalf (Mai Weaver) Physician Comments Seen and examined with NI, acute alcohol hepatitis in the background of liver cirrhosis. Start on solumederol. (Asuncion Macias MD) Mai Weaver Oct 12, 2017 16:10 Asuncion Macias MD Oct 13, 2017 09:32
[2017-10-12 16:14] VITALS: BP 141/67; PULSE 84; RESP 20; TEMP 98.4; O2SAT 95
[2017-10-12] MEDS: LACTULOSE SYRUP 20 GM/30 ML CUP PO SCH ×2 (17:49→21:17)
[2017-10-12 20:31] VITALS: BP 116/69; PULSE 79; RESP 17; TEMP 98.2; O2SAT 98
[2017-10-12] MEDS: PANTOPRAZOLE SODIUM 40 MG VIAL IV PUSH SCH (21:16)
[2017-10-12] MEDS: methylPREDNISolone SOD SUCC 40 MG/1 ML VIAL IV PUSH SCH (21:16)
[2017-10-13] VITALS (7 sets, daily range): BP systolic 131–161; BP diastolic 74–95; PULSE 75–101; RESP 16–18; TEMP 97.5–98.4; O2SAT 94–99
[2017-10-13] MEDS: OCTREOTIDE INJ 500 MCG in SODIUM CHLORID 0.9% 500 ML INJ 500 ML IV SCH ×2 (04:19→14:54)
[2017-10-13] MEDS: SODIUM CHLOR 0.9% 1000 ML INJ 1,000 ML IV SCH ×2 (04:19→13:47)
[2017-10-13 05:16] LABS: AUTOMATED NEUTROPHIL # 2.8 TH/MM3 (1.8-7.7); BASOPHIL % 0.1 % (0.0-2.0); EOSINOPHIL % 0.2 % (0.0-4.0); HEMATOCRIT 29.6 % (35.0-46.0); LYMPH % 8.5 % (9.0-44.0); LYMPHOCYTE # 0.3 TH/MM3 (1.0-4.8); MEAN CORPUSCULAR HEMOGLOBIN 32.9 PG (27.0-34.0); MEAN CORPUSCULAR HGB CONC 34.3 % (32.0-36.0); NEUT % 89.2 % (16.0-70.0); PLATELET COUNT 28 TH/MM3 (150-450); RED BLOOD COUNT 3.08 MIL/MM3 (4.00-5.30); RED CELL DISTRIBUTION WIDTH 15.6 % (11.6-17.2); WHITE BLOOD COUNT 3.2 TH/MM3 (4.0-11.0)
[2017-10-13 05:28] LABS: HEMO FLAGS AUTO DIFF
[2017-10-13 05:35] LABS: INTERNATIONAL NORMALIZED RATIO 1.6 RATIO; PROTHROMBIN TIME - PATIENT 16.6 SEC (9.8-11.6)
[2017-10-13 05:47] LABS: ANION GAP 8 MEQ/L (5-15); AST (GOT) 46 U/L (15-37); BICARBONATE 23.9 MEQ/L (21.0-32.0); BLOOD UREA NITROGEN 4 MG/DL (7-18); CHLORIDE 105 MEQ/L (98-107); GLOMERULAR FILTRATION RATE 102 ML/MIN (>89); MAGNESIUM 1.4 MG/DL (1.5-2.5); POTASSIUM 3.9 MEQ/L (3.5-5.1); SODIUM (NA) 137 MEQ/L (136-145)
[2017-10-13 05:51] LABS: ALKALINE PHOSPHATASE 112 U/L (45-117); ALT (GPT) 21 U/L (10-53); INDIRECT BILIRUBIN 3.8 MG/DL (0.0-0.8); TOTAL BILIRUBIN ADULT 7.5 MG/DL (0.2-1.0)
[2017-10-13] MEDS: THIAMINE HCL 100 MG TAB PO SCH (08:59)
[2017-10-13] MEDS: MULTIVITAMINS/MINERALS THERAPEUTIC TAB PO SCH (08:59)
[2017-10-13] MEDS: LACTULOSE SYRUP 20 GM/30 ML CUP PO SCH ×4 (08:59→21:14)
[2017-10-13] MEDS: DOCUSATE SODIUM 50 MG/SENNA 8.6 MG TAB PO SCH ×2 (08:59→21:13)
[2017-10-13] MEDS: SUCRALFATE 1 GM/10 ML CUP PO SCH ×4 (08:59→21:14)
[2017-10-13] MEDS: FOLIC ACID 1 MG TAB PO SCH (08:59)
[2017-10-13] MEDS ORDERED: PHYTONADIONE 10 MG/ML VIAL SQ SCH (09:00)
[2017-10-13] MEDS: methylPREDNISolone SOD SUCC 40 MG/1 ML VIAL IV PUSH SCH ×2 (09:02→21:14)
[2017-10-13] MEDS: PANTOPRAZOLE SODIUM 40 MG VIAL IV PUSH SCH ×2 (09:02→21:14)
[2017-10-13] MEDS: SODIUM CHLORIDE 0.9% FLUSH 10 ML FLUSH IV FLUSH SCH ×2 (09:02→21:14)
[2017-10-13 09:08] LABS: OVALOCYTES 1+ (NORMAL); PLATELET ESTIMATE SMEAR LOW (NORMAL); PLATELET MORPHOLOGY NORMAL (NORMAL); SCAN/DIFF AUTO DIFF CONFIRMED
--- NOTE | 2017-10-13 11:32 | HHI.PR ---
Subjective Remarks Follow up on patient with GIB, liver cirrhosis, alcohol abuse. Patient seen and examined. Patient complains of being more drowsy today. She reports 2 bloody BMs yesterday but no bowel movements today. She complains of nausea and abdominal pain. She denies any vomiting. She denies any chest pain or shortness of breath. She denies any auditory or visual hallucinations. She denies feeling anxious or shaky. Objective Vitals Vital Signs Date Time Temp Pulse Resp B/P (MAP) Pulse Ox O2 Delivery O2 Flow Rate FiO2 10/13/17 07:22 97.5 75 18 161/83 (109) 98 10/13/17 04:20 98.4 85 17 148/87 (107) 98 10/13/17 00:29 98.3 86 16 149/85 (106) 99 10/12/17 20:31 98.2 79 17 116/69 (85) 98 10/12/17 17:09 20 10/12/17 16:14 98.4 84 20 141/67 (91) 95 10/12/17 11:46 98.4 92 20 153/74 (100) 97 I/O 10/12/17 10/12/17 10/12/17 10/13/17 10/13/17 10/13/17 07:00 15:00 23:00 07:00 15:00 23:00 Intake Total 200 ml 100 ml Balance 200 ml 100 ml Intake IV Total 200 ml 100 ml Result Diagram: 10/13/17 0458 10/13/17 0458 Imaging Last Impressions Abdomen/Pelvis CT 10/09/17 0000 Signed Impressions: Service Date/Time: Monday, October 09, 2017 13:05 - CONCLUSION: 1. Cirrhotic liver with portal hypertension including large recanalized periumbilical vein and prominent splenorenal collaterals. There are small gastroesophageal varices. No significant ascites. 2. Cholelithiasis. 3. Otherwise, no definite acute animality. Yoel Winters MD Objective Remarks GENERAL: Well-nourished, well-developed patient in NAD. Awake. Oriented. Appears more jaundiced today. SKIN: Warm and dry. Jaundiced. HEAD: Normocephalic. Atraumatic. EYES: EOMI. (+)scleral icterus. No injection or drainage. ENT: No nasal bleeding or discharge. Mucous membranes pink and moist. No blood noted in mouth today. NECK: Trachea midline. CARDIOVASCULAR: Regular rate and rhythm. S1, S2 noted. No murmur appreciated. RESPIRATORY: Nonlabored. Clear to auscultation. Breath sounds equal bilaterally. GASTROINTESTINAL: Abdomen soft, non-tender, nondistended. Normoactive bowel sounds x4. MUSCULOSKELETAL: No obvious deformities. Extremities without clubbing, cyanosis , or edema. NEUROLOGICAL: Awake. Oriented. Able to move all extremities spontaneously. Motor and sensory function grossly intact. Normal speech. PSYCHIATRIC: Appropriate mood and affect; insight and judgment normal. Procedures COLONOSCOPY PROCEDURE REPORT EXAM DATE: 10/11/2017 PATIENT NAME: Kaitlin Rabago MR #: [id number] BIRTHDATE: 1960 ENDOSCOPIST: Asuncion Macias MD ORDER #: [id number] LANDFILL GRADER: Layla Aparicio and Arlen Maher STATUS: inpatient INDICATIONS: The patient is a 56 yr old female here for a colonoscopy due to iron deficiency anemia and hematochezia PROCEDURE PERFORMED: Colonoscopy with ablation MEDICATIONS: None and Per Anesthesia. PREP QUALITY: The Roland Bowel Prep Score was Right colon 2, Mid colon 2, and Left colon 3. Total = 7. PREP TYPE:GoLytely ESTIMATED BLOOD LOSS: None CONSENT: The patient understands the risks and benefits of the procedure and understands that these risks include, but are not limited to: sedation, allergic reaction, infection, perforation and/or bleeding. Alternative means of evaluation and treatment include, among others: physical exam, x-rays, and/or surgical intervention. The patient elects to proceed with this endoscopic procedure. medical equipment was checked for proper function. Hand hygiene and appropriate measures for infection prevention was taken. After the risks, benefits and alternatives of the procedure were thoroughly explained, Informed consent was verified, confirmed and timeout was successfully executed by the treatment team. A digital exam revealed external hemorrhoids The Pentax EC-[id number] endoscope was introduced through the anus and advanced to the cecum, which was identified by both the appendix and ileocecal valve. The instrument was then slowly withdrawn as the colon was fully examined. COLON FINDINGS: Moderate diverticulosis was noted in the ascending colon. A 5 x 5cm circumferential diffuse patch of colitis was found in the rectum. The mucosa was erythematous, friable and oozing blood. Destruction of tissue via ablation was attempted. Bleeding from maneuver treated with cautery. Argon plasma coagulation was used. Care was given to ensure that the lumen was suctioned well. A polypoid shaped sessile polyp ranging between 3-5mm in size was found in the ascending colon. Retroflexed views revealed internal hemorrhoids and Retroflexed views revealed small internal hemorrhoids The scope was then completely withdrawn from the patient and the procedure terminated. PROCEDURE WITHDRAWAL TIME:6minutes ADVERSE EVENTS: There were no complications. IMPRESSIONS: 1. Moderate diverticulosis was noted in the ascending colon 2. 5 x 5cm circumferential diffuse colitis was found in the rectum; The mucosa was erythematous, friable and oozing blood; Destruction of tissue via ablation was attempted 3. A sessile polyp ranging between 3-5mm in size was found in the ascending colon 4. Retroflexed views revealed internal hemorrhoids 5. Retroflexed views revealed small internal hemorrhoids 6. Revealed external hemorrhoids RECOMMENDATIONS: 1. Continue surveillance 2. High fiber diet 3. Yearly hemoccult 4. No seeds, nuts and popcorn in diet RECALL: Return 1 year Colonoscopy Asuncion Macias MD eSigned: Asuncion Macias MD 10/11/2017 3:24 PM EGD PROCEDURE REPORT EXAM DATE: 10/11/2017 PATIENT NAME: Kaitlin Rabago MR #: [id number] BIRTHDATE: 1960 ATTENDING: Asuncion Macias MD ORDER #: [id number] LANDFILL GRADER: Kev Aparicio Alice STATUS: inpatient INDICATIONS: The patient is a 56 yr old female here for an EGD due to acute post hemorrhagic anemia PROCEDURE PERFORMED: EGD, diagnostic MEDICATIONS: None and Per Anesthesia. TOPICAL ANESTHETIC: CONSENT: The patient understands the risks and benefits of the procedure and understands that these risks include, but are not limited to: sedation, allergic reaction, infection, perforation and/or bleeding. Alternative means of evaluation and treatment include, among others: physical exam, x-rays, and/or surgical intervention. The patient elects to proceed with this endoscopic procedure. medical equipment was checked for proper function. Hand hygiene and appropriate measures for infection prevention was taken. After the risks, benefits and alternatives of the procedure were thoroughly explained, Informed consent was verified, confirmed and timeout was successfully executed by the treatment team. The patient was anesthetized with topical anesthesia and the EC-[id number] (Pedi C) endoscope was introduced through the mouth and advanced to the second portion of the duodenum. Retroflexed views revealed a hiatal hernia The gastroscope was then slowly withdrawn and removed. ESOPHAGUS: There was short segment Guillaume's esophagus found in the distal esophagus. The length of circumferential Guillaume's was 1cm ([place] C1) and the length of Maximal extent of Guillaume's was 2cm ([place] M2). There was no nodular mucosa noted in the Guillaume's segment. STOMACH: There was erythematous severe gastritis in the gastric antrum. DUODENUM: The duodenal mucosa appeared normal in the bulb and second portion of the duodenum. ADVERSE EVENTS: There were no complications. IMPRESSIONS: 1. 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 There was erythematous gastritis in the gastric antrum 3. Normal duodenal mucosa in the bulb and second portion of the duodenum 4. Retroflexed views revealed a hiatal hernia RECOMMENDATIONS: 1. Anti-reflux regimen 2. Continue PPI 3. Avoid NSAIDS PATIENT CONDITION: stable DISPOSITION: Inpatient REPEAT EXAM: Return 6 months EGD Medications and IVs Current Medications Medications (Trade) Dose Ordered Sig/Cristal Route Start Time Stop Time Status Last Admin Octreotide Acetate 500 mcg/ Sodium Chloride 500.5 ml @ 50 mls/hr Q10H1M IV 10/09/17 00:10 10/13/17 04:19 (Folate) 1 mg DAILY PO 10/09/17 09:00 10/14/17 08:59 10/13/17 08:59 (Vitamin B1) 100 mg DAILY PO 10/09/17 09:00 10/13/17 08:59 (Theragran M Tab) 1 tab DAILY PO 10/09/17 09:00 10/14/17 08:59 10/13/17 08:59 (Romazicon Inj) 0.2 mg Q1M PRN IV PUSH 10/09/17 01:45 (Ativan) 1 mg Q4H PRN PO 10/09/17 01:45 10/09/17 14:28 (Ativan Inj) 1 mg Q4H PRN IV PUSH 10/09/17 01:45 (Ativan) 2 mg Q2H PRN PO 10/09/17 01:45 (Ativan Inj) 2 mg Q2H PRN IV PUSH 10/09/17 01:45 (Ativan Inj) 2 mg Q1H PRN IV PUSH 10/09/17 01:45 (Ativan Inj) 2 mg Q15M PRN IV PUSH 10/09/17 01:45 (Haldol Inj) 2 mg Q15M PRN IM 10/09/17 01:45 Sodium Chloride 1,000 ml @ 100 mls/hr Q10H IV 10/09/17 01:32 10/13/17 04:19 (NS Flush) 2 ml UNSCH PRN IV FLUSH 10/09/17 01:45 (NS Flush) 2 ml BID IV FLUSH 10/09/17 09:00 10/13/17 09:02 (Zofran Inj) 4 mg Q6H PRN IVP 10/09/17 01:45 10/09/17 23:49 (Tylenol) 650 mg Q6H PRN PO 10/09/17 01:45 (Morphine Inj) 2 mg Q3H PRN IV PUSH 10/09/17 01:45 (Roxicodone) 5 mg Q4H PRN PO 10/09/17 01:45 10/13/17 09:14 (Ashleigh-Colace) 1 tab BID PO 10/09/17 09:00 10/13/17 08:59 (Milk Of Magnesia Liq) 30 ml Q12H PRN PO 10/09/17 01:45 (Senokot) 17.2 mg Q12H PRN PO 10/09/17 01:45 (Dulcolax Supp) 10 mg DAILY PRN RECTAL 10/09/17 01:45 (Lactulose Liq) 30 ml DAILY PRN PO 10/09/17 01:45 (Carafate Liq) 1 gm ACHS PO 10/09/17 12:00 10/13/17 08:59 (Librium) 10 mg TID PRN PO 10/10/17 13:00 (Mag-Ox) 800 mg DAILY@1100 PO 10/12/17 11:00 10/12/17 10:09 (Protonix Inj) 40 mg Q12HR IV PUSH 10/12/17 21:00 10/13/17 09:02 (Lactulose Liq) 30 ml QID PO 10/12/17 18:00 10/13/17 08:59 (Vitamin K Inj) 10 mg DAILY SQ 10/13/17 09:00 10/13/17 09:01 (SoluMEDROL INJ) 40 mg Q12HR IV PUSH 10/12/17 21:00 10/13/17 09:02 Magnesium Sulfate/ Dextrose 100 ml @ 100 mls/hr Q1H IV 10/13/17 12:00 10/13/17 13:59 A/P Problem List: (1) GI bleed ICD Code: K92.2 - Gastrointestinal hemorrhage, unspecified Status: Acute (2) Alcohol abuse ICD Code: F10.10 - Alcohol abuse, uncomplicated (3) Thrombocytopenia ICD Code: D69.6 - Thrombocytopenia, unspecified Assessment and Plan 56 year old female with PMH of HTN, anxiety, depression, alcohol abuse and GI bleed who presented to the ED. with complaints of bright red rectal bleeding for 2 weeks with increased fatigue. Gastrointestinal bleed Anemia with thrombocytopenia Coagulopathy - H&H has been stable - CT scan of the Abdomen/ Pelvis reviewed showing cirrhotic liver with portal hypertension with large recanalized periumbilical vein and prominent splenorenal collaterals. Small gastroesophageal varices, no ascites. Cholelithiasis present as well. - GI following s/p EGD and colonoscopy showing Guillaume's esophagus, gastritis , moderate diverticulosis, 5x5cm diffuse colitis with oozing blood, internal and external hemorrhoids - BRBPR with stool yesterday - Continue on Pantoprazole, Octreotide IV & PO Carafate - Patient started on IV Solu-Medrol per GI - on Vitamin K. INR improved. Continue to monitor. Hepatic encephalopathy - Only 2 BMs yesterday, none today - Ammonia level trending up. Complains of being more drowsy today. - Increase dose of lactulose until 3-4 soft stools daily - Repeat ammonia level in a.m. Liver cirrhosis with thrombocytopenia likely secondary to alcohol abuse - Patient repots alcohol consumption at least 3 times a week, ethyl alcohol level on admission 343. - Advised on alcohol cessation and need to do this cautiously to avoid seizures from withdraw. - On Thiamine, folate, and Multivitamin PO - PRN Librium and Ativan if needed, seizure precautions - [facility] protocol Hyperglycemia - No reported history of diabetes - secondary to steroid use - HgbA1c 4.6 10/12/17 - accucheks - ISS Hypomagnesemia - IV repletion - recheck labs in am Atypical chest pain, ACS ruled out - Serial troponin negative - EKG done in ED reviewed, showing sinus tachycardia. - Likely related to GIB, anemia. DVT prophylaxis - Anticoagulation contraindicated due to GIB, coagulopathy - Bilateral SCD's and SIMIN's Discussed with patient, nursing staff and Dr. Vidal Problem Qualifiers (1) GI bleed: Qualified Codes: K92.2 - Gastrointestinal hemorrhage, unspecified Connie Velasquez Oct 13, 2017 11:32
[2017-10-13] MEDS: MAGNESIUM OXIDE 400 MG TAB PO SCH (11:55)
[2017-10-13] MEDS: MAGNESIUM SULFATE 1 GM PREMIX 100 ML IV SCH ×2 (11:56→13:47)
--- NOTE | 2017-10-13 16:01 | HHI.GIFU ---
Subjective Remarks Pt resting in bed comfortably, in no apparent distress at this time. She reports 2 BMs today, the last one was formed, still noticing BRB in the stool. Pt having continued abdominal pain, worse on the left side. Tolerating diet. Reports some nausea, denies vomiting. Complaining of feeling tired, denies confusion. (Anika Alexis) Objective Vitals I&O Vital Signs Date Time Temp Pulse Resp B/P (MAP) Pulse Ox O2 Delivery O2 Flow Rate FiO2 10/13/17 11:33 98.4 82 18 131/75 (93) 98 10/13/17 07:22 97.5 75 18 161/83 (109) 98 10/13/17 04:20 98.4 85 17 148/87 (107) 98 10/13/17 00:29 98.3 86 16 149/85 (106) 99 10/12/17 20:31 98.2 79 17 116/69 (85) 98 10/12/17 17:09 20 10/12/17 16:14 98.4 84 20 141/67 (91) 95 I/O 10/12/17 10/12/17 10/12/17 10/13/17 10/13/17 10/13/17 07:00 15:00 23:00 07:00 15:00 23:00 Intake Total 200 ml 100 ml 1700 ml Balance 200 ml 100 ml 1700 ml Intake IV Total 200 ml 100 ml 1700 ml # Voids 3 # Bowel Movements 1 Laboratory Laboratory Tests Test 10/13/17 04:38 10/13/17 04:58 Prothrombin Time 16.6 Prothromb Time International Ratio 1.6 White Blood Count 3.2 Red Blood Count 3.08 Hemoglobin 10.1 Hematocrit 29.6 Mean Corpuscular Volume 96.0 Mean Corpuscular Hemoglobin 32.9 Mean Corpuscular Hemoglobin Concent 34.3 Red Cell Distribution Width 15.6 Platelet Count 28 Mean Platelet Volume 8.1 Neutrophils (%) (Auto) 89.2 Lymphocytes (%) (Auto) 8.5 Monocytes (%) (Auto) 2.0 Eosinophils (%) (Auto) 0.2 Basophils (%) (Auto) 0.1 Neutrophils # (Auto) 2.8 Lymphocytes # (Auto) 0.3 Monocytes # (Auto) 0.1 Eosinophils # (Auto) 0.0 Basophils # (Auto) 0.0 CBC Comment AUTO DIFF Differential Comment AUTO DIFF CONFIRMED Platelet Estimate LOW Platelet Morphology Comment NORMAL Ovalocytes 1+ Blood Urea Nitrogen 4 Creatinine 0.61 Random Glucose 193 Total Protein 7.4 Albumin 2.9 Calcium Level 8.2 Phosphorus Level 3.0 Magnesium Level 1.4 Alkaline Phosphatase 112 Aspartate Amino Transf (AST/SGOT) 46 Alanine Aminotransferase (ALT/SGPT) 21 Total Bilirubin 7.5 Direct Bilirubin 3.7 Sodium Level 137 Potassium Level 3.9 Chloride Level 105 Carbon Dioxide Level 23.9 Anion Gap 8 Estimat Glomerular Filtration Rate 102 Indirect Bilirubin 3.8 Ammonia 129 Imaging Last Impressions Abdomen/Pelvis CT 10/09/17 0000 Signed Impressions: Service Date/Time: Monday, October 09, 2017 13:05 - CONCLUSION: 1. Cirrhotic liver with portal hypertension including large recanalized periumbilical vein and prominent splenorenal collaterals. There are small gastroesophageal varices. No significant ascites. 2. Cholelithiasis. 3. Otherwise, no definite acute animality. Yoel Winters MD Physical Exam HEENT: Normocephalic; atraumatic; + jaundice. CHEST: CTA CARDIAC: RRR ABDOMEN: Soft, distended, nontender; (+) hepatomegaly; bowel sounds active x 4. EXTREMITIES: no edema SKIN: Normal; no rash; + jaundice. STEAM PIPE FITTER: Awake, alert and oriented x 3. 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 S/P panendoscopy () --> Short segment Guillaume's esophagus in the distal esophagus, erythematous gastritis, normal duodenum, and hiatal hernia. Moderate diverticulosis in the ascending colon, 5x5 cm circumferential diffuse colitis was found in the rectum, mucosa was erythematous, friable, and oozing blood, destruction of the tissue via ablation was attempted, sessile polyp in the ascending colon, internal and external hemorrhoids. - Alcoholic hepatitis/cirrhosis- Pt reports having one paracentesis in the past , approx a year ago. CT Abdomen & pelvis W/O IV contrast (10/09) --> cirrhosis, portal HTN, varices, cholelithiasis. Complaints of fatigue. Ammonia-129 Lactulose 30mL QID. - Transaminitis- etiology most likely related to ETOH. AST-46 ALT-21 - Anemia- normocytic- most likely related to active bleed. Iron-193 TIBC-217 % Sat- 88.9 Ferritin-256 Hemochromatosis labs pending - Thrombocytopenia - PLT - 28 - Coagulopathy - INR 1.6. Vit K - Nausea- Zofran as needed Plan - IV Solumedrol - We recommend switching to Prednisone 30mg daily at time of discharge - Cont Protonix - Monitor labs - Transfuse as needed - Repeat EGD in 6 months - Repeat colonoscopy in 1 year - Follow up at [facility] in 1-2 weeks post discharge Patient has been seen and examined by myself and Dr. Macias and this note is written on his behalf (Anika Alexis) Physician Comments Seen and examined with NI, still with rectal bleeding. S/p colonoscopy with ablation. On solumederol, switch to po prednisone upon dc. Quit ETOH. (Asuncion Macias MD) Problem Qualifiers (1) GI bleed: Qualified Codes: K92.2 - Gastrointestinal hemorrhage, unspecified Anika Alexis Oct 13, 2017 16:01 Asuncion Macias MD Oct 13, 2017 17:07
[2017-10-13 18:35] LABS: HEMATOCRIT 27.7 % (35.0-46.0)
[2017-10-13 18:40] LABS: REVIEW FLAG FINAL
[2017-10-14] MEDS: SODIUM CHLOR 0.9% 1000 ML INJ 1,000 ML IV SCH ×2 (00:42→10:28)
[2017-10-14] MEDS: LACTULOSE SYRUP 20 GM/30 ML CUP PO SCH ×4 (00:42→12:39)
[2017-10-14] MEDS: OCTREOTIDE INJ 500 MCG in SODIUM CHLORID 0.9% 500 ML INJ 500 ML IV SCH (00:42)
[2017-10-14 03:46] VITALS: BP 147/83; PULSE 84; RESP 18; TEMP 97.9; O2SAT 95
[2017-10-14 07:08] LABS: ANION GAP 6 MEQ/L (5-15); AST (GOT) 41 U/L (15-37); BICARBONATE 26.6 MEQ/L (21.0-32.0); BLOOD UREA NITROGEN 7 MG/DL (7-18); CHLORIDE 103 MEQ/L (98-107); GLOMERULAR FILTRATION RATE 104 ML/MIN (>89); MAGNESIUM 1.6 MG/DL (1.5-2.5); POTASSIUM 3.7 MEQ/L (3.5-5.1); SODIUM (NA) 136 MEQ/L (136-145)
[2017-10-14 07:10] LABS: ALT (GPT) 20 U/L (10-53)
[2017-10-14 07:12] LABS: ALKALINE PHOSPHATASE 130 U/L (45-117); TOTAL BILIRUBIN ADULT 6.4 MG/DL (0.2-1.0)
[2017-10-14 07:13] LABS: AUTOMATED NEUTROPHIL # 4.2 TH/MM3 (1.8-7.7); BASOPHIL % 0.1 % (0.0-2.0); EOSINOPHIL % 0.1 % (0.0-4.0); HEMATOCRIT 29.4 % (35.0-46.0); LYMPH % 7.4 % (9.0-44.0); LYMPHOCYTE # 0.3 TH/MM3 (1.0-4.8); MEAN CELL VOLUME 96.8 FL (80.0-100.0); MEAN CORPUSCULAR HGB CONC 34.1 % (32.0-36.0); MONO % 4.4 % (0.0-8.0); PLATELET COUNT 32 TH/MM3 (150-450); RED BLOOD COUNT 3.04 MIL/MM3 (4.00-5.30); RED CELL DISTRIBUTION WIDTH 16.4 % (11.6-17.2); WHITE BLOOD COUNT 4.7 TH/MM3 (4.0-11.0)
[2017-10-14 07:29] LABS: HEMO FLAGS AUTO DIFF
[2017-10-14 08:25] VITALS: BP 143/81; PULSE 78; RESP 16; TEMP 98.1; O2SAT 98
[2017-10-14 08:43] LABS: OVALOCYTES 1+ (NORMAL); PLATELET ESTIMATE SMEAR LOW (NORMAL); PLATELET MORPHOLOGY NORMAL (NORMAL); SCAN/DIFF AUTO DIFF CONFIRMED
[2017-10-14] MEDS: SODIUM CHLORIDE 0.9% FLUSH 10 ML FLUSH IV FLUSH SCH (09:00)
[2017-10-14] MEDS: PANTOPRAZOLE SODIUM 40 MG VIAL IV PUSH SCH (10:26)
[2017-10-14] MEDS: SUCRALFATE 1 GM/10 ML CUP PO SCH ×2 (10:26→12:39)
[2017-10-14] MEDS: DOCUSATE SODIUM 50 MG/SENNA 8.6 MG TAB PO SCH (10:27)
[2017-10-14] MEDS: MAGNESIUM OXIDE 400 MG TAB PO SCH (10:27)
[2017-10-14] MEDS: THIAMINE HCL 100 MG TAB PO SCH (10:27)
[2017-10-14] MEDS: methylPREDNISolone SOD SUCC 40 MG/1 ML VIAL IV PUSH SCH (10:28)
--- NOTE | 2017-10-14 10:38 | HHI.PR ---
Subjective Remarks Follow up on patient with GIB, liver cirrhosis, alcohol abuse. Patient seen and examined. She states she feels better today. She is more clear headed and less drowsy. Reports continued episodes of bright red blood per rectum of following bowel movements but improved throughout the day. She denies any shortness of breath or chest pain. Denies any headache dizziness or lightheadedness. Denies any nausea, vomiting or abdominal pain. Objective Vitals Vital Signs Date Time Temp Pulse Resp B/P (MAP) Pulse Ox O2 Delivery O2 Flow Rate FiO2 10/14/17 08:25 98.1 78 16 143/81 (101) 98 10/14/17 03:46 97.9 84 18 147/83 (104) 95 10/13/17 23:50 98.2 91 18 161/95 (117) 96 10/13/17 21:23 98.3 101 18 149/82 (104) 99 10/13/17 15:58 98.0 90 18 143/74 (97) 94 10/13/17 11:33 98.4 82 18 131/75 (93) 98 I/O 10/13/17 10/13/17 10/13/17 10/14/17 10/14/17 10/14/17 07:00 15:00 23:00 07:00 15:00 23:00 Intake Total 1700 ml Balance 1700 ml Intake IV Total 1700 ml # Voids 3 # Bowel Movements 1 Result Diagram: 10/14/17 0635 10/14/17 0635 Imaging Last Impressions Abdomen/Pelvis CT 10/09/17 0000 Signed Impressions: Service Date/Time: Monday, October 09, 2017 13:05 - CONCLUSION: 1. Cirrhotic liver with portal hypertension including large recanalized periumbilical vein and prominent splenorenal collaterals. There are small gastroesophageal varices. No significant ascites. 2. Cholelithiasis. 3. Otherwise, no definite acute animality. Yoel Winters MD Objective Remarks GENERAL: Well-nourished, well-developed patient in NAD. Awake and alert. Oriented x 3. SKIN: Warm and dry. Appears less jaundiced today. HEAD: Normocephalic. Atraumatic. EYES: EOMI. (+)scleral icterus. No injection or drainage. ENT: No nasal bleeding or discharge. Mucous membranes pink and moist. No blood noted in mouth today. NECK: Trachea midline. CARDIOVASCULAR: Regular rate and rhythm. S1, S2 noted. No murmur appreciated. RESPIRATORY: Nonlabored. Clear to auscultation. Breath sounds equal bilaterally. GASTROINTESTINAL: Abdomen soft, non-tender, nondistended. Normoactive bowel sounds x4. MUSCULOSKELETAL: No obvious deformities. Extremities without clubbing, cyanosis , or edema. NEUROLOGICAL: Awake. Oriented. Able to move all extremities spontaneously. Motor and sensory function grossly intact. Normal speech. PSYCHIATRIC: Appropriate mood and affect; insight and judgment normal. Procedures COLONOSCOPY PROCEDURE REPORT EXAM DATE: 10/11/2017 PATIENT NAME: Kaitlin Rabago MR #: [id number] BIRTHDATE: 1960 ENDOSCOPIST: Asuncion Macias MD ORDER #: [id number] RAGS LABORER: Layla Aparicio and Arlen Maher STATUS: inpatient INDICATIONS: The patient is a 56 yr old female here for a colonoscopy due to iron deficiency anemia and hematochezia PROCEDURE PERFORMED: Colonoscopy with ablation MEDICATIONS: None and Per Anesthesia. PREP QUALITY: The [place] Bowel Prep Score was Right colon 2, Mid colon 2, and Left colon 3. Total = 7. PREP TYPE:GoLytely ESTIMATED BLOOD LOSS: None CONSENT: The patient understands the risks and benefits of the procedure and understands that these risks include, but are not limited to: sedation, allergic reaction, infection, perforation and/or bleeding. Alternative means of evaluation and treatment include, among others: physical exam, x-rays, and/or surgical intervention. The patient elects to proceed with this endoscopic procedure. medical equipment was checked for proper function. Hand hygiene and appropriate measures for infection prevention was taken. After the risks, benefits and alternatives of the procedure were thoroughly explained, Informed consent was verified, confirmed and timeout was successfully executed by the treatment team. A digital exam revealed external hemorrhoids The Pentax EC-[id number] endoscope was introduced through the anus and advanced to the cecum, which was identified by both the appendix and ileocecal valve. The instrument was then slowly withdrawn as the colon was fully examined. COLON FINDINGS: Moderate diverticulosis was noted in the ascending colon. A 5 x 5cm circumferential diffuse patch of colitis was found in the rectum. The mucosa was erythematous, friable and oozing blood. Destruction of tissue via ablation was attempted. Bleeding from maneuver treated with cautery. Argon plasma coagulation was used. Care was given to ensure that the lumen was suctioned well. A polypoid shaped sessile polyp ranging between 3-5mm in size was found in the ascending colon. Retroflexed views revealed internal hemorrhoids and Retroflexed views revealed small internal hemorrhoids The scope was then completely withdrawn from the patient and the procedure terminated. PROCEDURE WITHDRAWAL TIME:6minutes ADVERSE EVENTS: There were no complications. IMPRESSIONS: 1. Moderate diverticulosis was noted in the ascending colon 2. 5 x 5cm circumferential diffuse colitis was found in the rectum; The mucosa was erythematous, friable and oozing blood; Destruction of tissue via ablation was attempted 3. A sessile polyp ranging between 3-5mm in size was found in the ascending colon 4. Retroflexed views revealed internal hemorrhoids 5. Retroflexed views revealed small internal hemorrhoids 6. Revealed external hemorrhoids RECOMMENDATIONS: 1. Continue surveillance 2. High fiber diet 3. Yearly hemoccult 4. No seeds, nuts and popcorn in diet RECALL: Return 1 year Colonoscopy Asuncion Macias MD eSigned: Asuncion Macias MD 10/11/2017 3:24 PM EGD PROCEDURE REPORT EXAM DATE: 10/11/2017 PATIENT NAME: Kaitlin Rabago MR #: [id number] BIRTHDATE: 1960 ATTENDING: Asuncion Macias MD ORDER #: [id number] RAGS LABORER: Kev Aparicio Alice STATUS: inpatient INDICATIONS: The patient is a 56 yr old female here for an EGD due to acute post hemorrhagic anemia PROCEDURE PERFORMED: EGD, diagnostic MEDICATIONS: None and Per Anesthesia. TOPICAL ANESTHETIC: CONSENT: The patient understands the risks and benefits of the procedure and understands that these risks include, but are not limited to: sedation, allergic reaction, infection, perforation and/or bleeding. Alternative means of evaluation and treatment include, among others: physical exam, x-rays, and/or surgical intervention. The patient elects to proceed with this endoscopic procedure. medical equipment was checked for proper function. Hand hygiene and appropriate measures for infection prevention was taken. After the risks, benefits and alternatives of the procedure were thoroughly explained, Informed consent was verified, confirmed and timeout was successfully executed by the treatment team. The patient was anesthetized with topical anesthesia and the EC-[id number] (Pedi C) endoscope was introduced through the mouth and advanced to the second portion of the duodenum. Retroflexed views revealed a hiatal hernia The gastroscope was then slowly withdrawn and removed. ESOPHAGUS: There was short segment Guillaume's esophagus found in the distal esophagus. The length of circumferential Guillaume's was 1cm ([place] C1) and the length of Maximal extent of Guillaume's was 2cm ([place] M2). There was no nodular mucosa noted in the Guillaume's segment. STOMACH: There was erythematous severe gastritis in the gastric antrum. DUODENUM: The duodenal mucosa appeared normal in the bulb and second portion of the duodenum. ADVERSE EVENTS: There were no complications. IMPRESSIONS: 1. 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 There was erythematous gastritis in the gastric antrum 3. Normal duodenal mucosa in the bulb and second portion of the duodenum 4. Retroflexed views revealed a hiatal hernia RECOMMENDATIONS: 1. Anti-reflux regimen 2. Continue PPI 3. Avoid NSAIDS PATIENT CONDITION: stable DISPOSITION: Inpatient REPEAT EXAM: Return 6 months EGD Medications and IVs Current Medications Medications (Trade) Dose Ordered Sig/Cristal Route Start Time Stop Time Status Last Admin Octreotide Acetate 500 mcg/ Sodium Chloride 500.5 ml @ 50 mls/hr Q10H1M IV 10/09/17 00:10 10/14/17 00:42 (Vitamin B1) 100 mg DAILY PO 10/09/17 09:00 10/14/17 10:27 (Romazicon Inj) 0.2 mg Q1M PRN IV PUSH 10/09/17 01:45 (Ativan) 1 mg Q4H PRN PO 10/09/17 01:45 10/09/17 14:28 (Ativan Inj) 1 mg Q4H PRN IV PUSH 10/09/17 01:45 (Ativan) 2 mg Q2H PRN PO 10/09/17 01:45 (Ativan Inj) 2 mg Q2H PRN IV PUSH 10/09/17 01:45 (Ativan Inj) 2 mg Q1H PRN IV PUSH 10/09/17 01:45 (Ativan Inj) 2 mg Q15M PRN IV PUSH 10/09/17 01:45 (Haldol Inj) 2 mg Q15M PRN IM 10/09/17 01:45 Sodium Chloride 1,000 ml @ 100 mls/hr Q10H IV 10/09/17 01:32 10/14/17 10:28 (NS Flush) 2 ml UNSCH PRN IV FLUSH 10/09/17 01:45 (NS Flush) 2 ml BID IV FLUSH 10/09/17 09:00 10/13/17 21:14 (Zofran Inj) 4 mg Q6H PRN IVP 10/09/17 01:45 10/09/17 23:49 (Tylenol) 650 mg Q6H PRN PO 10/09/17 01:45 (Morphine Inj) 2 mg Q3H PRN IV PUSH 10/09/17 01:45 (Roxicodone) 5 mg Q4H PRN PO 10/09/17 01:45 10/14/17 10:28 (Ashleigh-Colace) 1 tab BID PO 10/09/17 09:00 10/14/17 10:27 (Milk Of Magnesia Liq) 30 ml Q12H PRN PO 10/09/17 01:45 (Senokot) 17.2 mg Q12H PRN PO 10/09/17 01:45 (Dulcolax Supp) 10 mg DAILY PRN RECTAL 10/09/17 01:45 (Lactulose Liq) 30 ml DAILY PRN PO 10/09/17 01:45 (Carafate Liq) 1 gm ACHS PO 10/09/17 12:00 10/14/17 10:26 (Librium) 10 mg TID PRN PO 10/10/17 13:00 (Mag-Ox) 800 mg DAILY@1100 PO 10/12/17 11:00 10/14/17 10:27 (Protonix Inj) 40 mg Q12HR IV PUSH 10/12/17 21:00 10/14/17 10:26 (SoluMEDROL INJ) 40 mg Q12HR IV PUSH 10/12/17 21:00 10/14/17 10:28 (Lactulose Liq) 30 ml Q4HR PO 10/13/17 12:00 10/14/17 05:10 A/P Problem List: (1) GI bleed ICD Code: K92.2 - Gastrointestinal hemorrhage, unspecified Status: Acute (2) Alcohol abuse ICD Code: F10.10 - Alcohol abuse, uncomplicated (3) Thrombocytopenia ICD Code: D69.6 - Thrombocytopenia, unspecified Assessment and Plan 56 year old female with PMH of HTN, anxiety, depression, alcohol abuse and GI bleed who presented to the ED. with complaints of bright red rectal bleeding for 2 weeks with increased fatigue. Gastrointestinal bleed Anemia with thrombocytopenia Coagulopathy - CT scan of the Abdomen/ Pelvis reviewed showing cirrhotic liver with portal hypertension with large recanalized periumbilical vein and prominent splenorenal collaterals. Small gastroesophageal varices, no ascites. Cholelithiasis present as well. - GI following s/p EGD and colonoscopy showing Guillaume's esophagus, gastritis , moderate diverticulosis, 5x5cm diffuse colitis with oozing blood, internal and external hemorrhoids - BRBPR with stool yesterday, no BM so far today. H/H stable. - Continue on Pantoprazole, Octreotide IV & PO Carafate - Patient started on IV Solu-Medrol per GI - Vitamin K discontinued. INR 1.6 this morning. Hepatic encephalopathy - 3 BMs yesterday - Ammonia level trending down, now 78 - Continue lactulose until 3-4 soft stools daily Liver cirrhosis with thrombocytopenia likely secondary to alcohol abuse - No signs/symptoms of alcohol withdrawal - Patient repots alcohol consumption at least 3 times a week, ethyl alcohol level on admission 343. - Advised on alcohol cessation and need to do this cautiously to avoid seizures from withdraw. - On Thiamine, folate, and Multivitamin PO - PRN Librium and Ativan if needed, seizure precautions - [facility] protocol Hyperglycemia - No reported history of diabetes - secondary to steroid use - HgbA1c 4.6 10/12/17 - accucheks - ISS Hypomagnesemia - Resolved status post IV repletion Atypical chest pain, ACS ruled out - Serial troponin negative - EKG done in ED reviewed, showing sinus tachycardia. - Likely related to GIB, anemia. DVT prophylaxis - Anticoagulation contraindicated due to GIB, coagulopathy - Bilateral SCD's and SIMIN's Discussed with patient, nursing staff and Dr. Vidal Discharge Planning Pending GI clearance Problem Qualifiers (1) GI bleed: Qualified Codes: K92.2 - Gastrointestinal hemorrhage, unspecified Connie Velasquez Oct 14, 2017 10:38
[2017-10-14] MEDS ORDERED: PRED20 PO (11:06)
[2017-10-14] MEDS ORDERED: Lactulose Liq PO (11:09)
--- NOTE | 2017-10-14 11:19 | HHI.GIFU ---
Subjective Remarks Pt sitting up in bed. REctal bleeding decreasing. tolerating diet. (Mai Weaver) Objective Vitals I&O Vital Signs Date Time Temp Pulse Resp B/P (MAP) Pulse Ox O2 Delivery O2 Flow Rate FiO2 10/14/17 08:25 98.1 78 16 143/81 (101) 98 10/14/17 03:46 97.9 84 18 147/83 (104) 95 10/13/17 23:50 98.2 91 18 161/95 (117) 96 10/13/17 21:23 98.3 101 18 149/82 (104) 99 10/13/17 15:58 98.0 90 18 143/74 (97) 94 10/13/17 11:33 98.4 82 18 131/75 (93) 98 I/O 10/13/17 10/13/17 10/13/17 10/14/17 10/14/17 10/14/17 07:00 15:00 23:00 07:00 15:00 23:00 Intake Total 1700 ml Balance 1700 ml Intake IV Total 1700 ml # Voids 3 # Bowel Movements 1 Laboratory Laboratory Tests Test 10/13/17 17:26 10/14/17 06:35 Hemoglobin 9.5 10.0 Hematocrit 27.7 29.4 White Blood Count 4.7 Red Blood Count 3.04 Mean Corpuscular Volume 96.8 Mean Corpuscular Hemoglobin 33.0 Mean Corpuscular Hemoglobin Concent 34.1 Red Cell Distribution Width 16.4 Platelet Count 32 Mean Platelet Volume 8.8 Neutrophils (%) (Auto) 88.0 Lymphocytes (%) (Auto) 7.4 Monocytes (%) (Auto) 4.4 Eosinophils (%) (Auto) 0.1 Basophils (%) (Auto) 0.1 Neutrophils # (Auto) 4.2 Lymphocytes # (Auto) 0.3 Monocytes # (Auto) 0.2 Eosinophils # (Auto) 0.0 Basophils # (Auto) 0.0 CBC Comment AUTO DIFF Differential Comment AUTO DIFF CONFIRMED Platelet Estimate LOW Platelet Morphology Comment NORMAL Ovalocytes 1+ Blood Urea Nitrogen 7 Creatinine 0.60 Random Glucose 156 Total Protein 7.6 Albumin 3.0 Calcium Level 8.4 Magnesium Level 1.6 Alkaline Phosphatase 130 Aspartate Amino Transf (AST/SGOT) 41 Alanine Aminotransferase (ALT/SGPT) 20 Total Bilirubin 6.4 Sodium Level 136 Potassium Level 3.7 Chloride Level 103 Carbon Dioxide Level 26.6 Anion Gap 6 Estimat Glomerular Filtration Rate 104 Ammonia 78 Physical Exam HEENT: Normocephalic; atraumatic; + jaundice. CHEST: CTA CARDIAC: RRR ABDOMEN: Soft, distended, nontender; (+) hepatomegaly; bowel sounds active x 4. EXTREMITIES: no edema SKIN: Normal; no rash; + jaundice. [employer]: Awake, alert and oriented x 3. (Mai Weaver) Assessment and Plan Plan Assessment: - Rectal bleeding x 2 weeks, hematochezia- History of PUD. S/P panendoscopy () --> Short segment Guillaume's esophagus in the distal esophagus, erythematous gastritis, normal duodenum, and hiatal hernia. Moderate diverticulosis in the ascending colon, 5x5 cm circumferential diffuse colitis was found in the rectum, mucosa was erythematous, friable, and oozing blood, destruction of the tissue via ablation was attempted, sessile polyp in the ascending colon, internal and external hemorrhoids. bleeding has decreased path pending - Alcoholic hepatitis/cirrhosis- Pt reports having one paracentesis in the past , approx a year ago. CT Abdomen & pelvis W/O IV contrast (10/09) --> cirrhosis, portal HTN, varices, cholelithiasis. Complaints of fatigue. Ammonia-129 Lactulose 30mL QID. - Transaminitis- etiology most likely related to ETOH. - Anemia- normocytic- most likely related to active bleed. Iron-193 TIBC-217 % Sat- 88.9 Ferritin-256 Hemochromatosis labs pending HH stable - Thrombocytopenia - PLT stable - Coagulopathy - INR 1.6. - Nausea- Zofran as needed Plan - Prednisone 30mg daily at time of discharge - Cont Protonix - Monitor labs - Repeat EGD in 6 months - Repeat colonoscopy in 1 year - Follow up at [facility] in 1-2 weeks post discharge - OK to d/c from GI standpoint Patient has been seen and examined by myself and Dr. Macias and this note is written on his behalf (Mai Weaver) Physician Comments Seen and examined with lauri DAN home on prednisone with gi fu please. No ETOH (Asuncion Macias MD) Mai Weaver Oct 14, 2017 11:19 Asuncion Macias MD Oct 14, 2017 14:24
[2017-10-14 11:31] VITALS: RESP 18
--- NOTE | 2017-10-14 11:35 | HHI.DS ---
Discharge Summary Admission Date Oct 09, 2017 at 01:26 Discharge Date: Oct 14, 2017 Admitting Diagnosis gi bleed (1) GI bleed ICD Code: K92.2 - Gastrointestinal hemorrhage, unspecified Status: Acute (2) Hepatic encephalopathy ICD Code: K72.90 - Hepatic failure, unspecified without coma (3) Liver cirrhosis, alcoholic ICD Code: K70.30 - Alcoholic cirrhosis of liver without ascites (4) Thrombocytopenia ICD Code: D69.6 - Thrombocytopenia, unspecified (5) Gastritis ICD Code: K29.70 - Gastritis, unspecified, without bleeding (6) Colitis ICD Code: K52.9 - Noninfective gastroenteritis and colitis, unspecified (7) Transaminitis ICD Code: R74.0 - Nonspecific elevation of levels of transaminase and lactic acid dehydrogenase [LDH] (8) Portal hypertension ICD Code: K76.6 - Portal hypertension (9) Coagulopathy ICD Code: D68.9 - Coagulation defect, unspecified (10) Thrombocytopenia ICD Code: D69.6 - Thrombocytopenia, unspecified Status: Acute (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 - 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 dysplasia (12) Alcohol abuse ICD Code: F10.10 - Alcohol abuse, uncomplicated (13) Hypomagnesemia ICD Code: E83.42 - Hypomagnesemia (14) Alcohol dependence ICD Code: F10.20 - Alcohol dependence Status: Acute (15) Hyperbilirubinemia ICD Code: E80.6 - Other disorders of bilirubin metabolism Status: Acute (16) Alcohol intoxication ICD Code: F10.929 - Alcohol use, unspecified with intoxication, unspecified Status: Acute (17) Jaundice ICD Code: R17 - Unspecified jaundice Status: Acute (18) Abdominal pain ICD Code: R10.9 - Unspecified abdominal pain Status: Acute (19) Anemia ICD Code: D64.9 - Anemia, unspecified Procedures COLONOSCOPY PROCEDURE REPORT EXAM DATE: 10/11/2017 PATIENT NAME: Kaitlin Rabago MR #: [id number] BIRTHDATE: 1960 ENDOSCOPIST: Asuncion Macias MD ORDER #: [id number] DIRECTOR CLIENT: Layla Aparicio and Arlen Maher STATUS: inpatient INDICATIONS: The patient is a 56 yr old female here for a colonoscopy due to iron deficiency anemia and hematochezia PROCEDURE PERFORMED: Colonoscopy with ablation MEDICATIONS: None and Per Anesthesia. PREP QUALITY: The [place] Bowel Prep Score was Right colon 2, Mid colon 2, and Left colon 3. Total = 7. PREP TYPE:GoLytely ESTIMATED BLOOD LOSS: None CONSENT: The patient understands the risks and benefits of the procedure and understands that these risks include, but are not limited to: sedation, allergic reaction, infection, perforation and/or bleeding. Alternative means of evaluation and treatment include, among others: physical exam, x-rays, and/or surgical intervention. The patient elects to proceed with this endoscopic procedure. medical equipment was checked for proper function. Hand hygiene and appropriate measures for infection prevention was taken. After the risks, benefits and alternatives of the procedure were thoroughly explained, Informed consent was verified, confirmed and timeout was successfully executed by the treatment team. A digital exam revealed external hemorrhoids The Pentax EC-[id number] endoscope was introduced through the anus and advanced to the cecum, which was identified by both the appendix and ileocecal valve. The instrument was then slowly withdrawn as the colon was fully examined. COLON FINDINGS: Moderate diverticulosis was noted in the ascending colon. A 5 x 5cm circumferential diffuse patch of colitis was found in the rectum. The mucosa was erythematous, friable and oozing blood. Destruction of tissue via ablation was attempted. Bleeding from maneuver treated with cautery. Argon plasma coagulation was used. Care was given to ensure that the lumen was suctioned well. A polypoid shaped sessile polyp ranging between 3-5mm in size was found in the ascending colon. Retroflexed views revealed internal hemorrhoids and Retroflexed views revealed small internal hemorrhoids The scope was then completely withdrawn from the patient and the procedure terminated. PROCEDURE WITHDRAWAL TIME:6minutes ADVERSE EVENTS: There were no complications. IMPRESSIONS: 1. Moderate diverticulosis was noted in the ascending colon 2. 5 x 5cm circumferential diffuse colitis was found in the rectum; The mucosa was erythematous, friable and oozing blood; Destruction of tissue via ablation was attempted 3. A sessile polyp ranging between 3-5mm in size was found in the ascending colon 4. Retroflexed views revealed internal hemorrhoids 5. Retroflexed views revealed small internal hemorrhoids 6. Revealed external hemorrhoids RECOMMENDATIONS: 1. Continue surveillance 2. High fiber diet 3. Yearly hemoccult 4. No seeds, nuts and popcorn in diet RECALL: Return 1 year Colonoscopy Asuncion Macias MD eSigned: Asuncion Macias MD 10/11/2017 3:24 PM EGD PROCEDURE REPORT EXAM DATE: 10/11/2017 PATIENT NAME: Kaitlin Rabago MR #: [id number] BIRTHDATE: 1960 ATTENDING: Asuncion Macias MD ORDER #: [id number] DIRECTOR CLIENT: Kev Aparicio Alice STATUS: inpatient INDICATIONS: The patient is a 56 yr old female here for an EGD due to acute post hemorrhagic anemia PROCEDURE PERFORMED: EGD, diagnostic MEDICATIONS: None and Per Anesthesia. TOPICAL ANESTHETIC: CONSENT: The patient understands the risks and benefits of the procedure and understands that these risks include, but are not limited to: sedation, allergic reaction, infection, perforation and/or bleeding. Alternative means of evaluation and treatment include, among others: physical exam, x-rays, and/or surgical intervention. The patient elects to proceed with this endoscopic procedure. medical equipment was checked for proper function. Hand hygiene and appropriate measures for infection prevention was taken. After the risks, benefits and alternatives of the procedure were thoroughly explained, Informed consent was verified, confirmed and timeout was successfully executed by the treatment team. The patient was anesthetized with topical anesthesia and the [id number] (Pedi C) endoscope was introduced through the mouth and advanced to the second portion of the duodenum. Retroflexed views revealed a hiatal hernia The gastroscope was then slowly withdrawn and removed. ESOPHAGUS: There was short segment Guillaume's esophagus found in the distal esophagus. The length of circumferential Ugillaume's was 1cm ([place] C1) and the length of Maximal extent of Guilluame's was 2cm ([place] M2). There was no nodular mucosa noted in the Guillaume's segment. STOMACH: There was erythematous severe gastritis in the gastric antrum. DUODENUM: The duodenal mucosa appeared normal in the bulb and second portion of the duodenum. ADVERSE EVENTS: There were no complications. IMPRESSIONS: 1. 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 There was erythematous gastritis in the gastric antrum 3. Normal duodenal mucosa in the bulb and second portion of the duodenum 4. Retroflexed views revealed a hiatal hernia RECOMMENDATIONS: 1. Anti-reflux regimen 2. Continue PPI 3. Avoid NSAIDS PATIENT CONDITION: stable DISPOSITION: Inpatient REPEAT EXAM: Return 6 months EGD Brief History - From Admission This is a 56-year-old female with a PMH of HTN, Anxiety, Depression, Alcohol Abuse and h/o GI Bleed who presented to the ER w/ complaints of rectal bleeding for approx 2wks. Today, w/ significant fatigue and episode of nausea w/ vomiting, nonbloody. Denies fever, chills or diarrhea. Previous admit 09/2016 , diagnosed w/ New Onset Ascites, CT Abd/Pelvis w/ ascites and varicosities consistent w/ cirrhosis, s/p EGD 09/18/16 w/ gastric ulcer and gastritis. Reports no issues since then. On arrival, BP 157/73, HR 110, O2 sat 98% on RA, Afebrile. Hemoglobin 10.7, previously 8.9 on 09/18/16. Platelets 48, previously 89 on 09/18/16. INR 1.4. Alcohol 343. Hemoccult + on exam. CBC/BMP: 10/14/17 0635 10/14/17 0635 Significant Findings Laboratory Tests Test 10/11/17 22:00 10/12/17 05:16 10/13/17 04:38 10/13/17 04:58 Blood Urea Nitrogen 5 MG/DL (7-18) 5 MG/DL (7-18) 4 MG/DL (7-18) Random Glucose 161 MG/DL (74-106) 110 MG/DL (74-106) 193 MG/DL (74-106) Albumin 2.6 GM/DL (3.4-5.0) 2.6 GM/DL (3.4-5.0) 2.9 GM/DL (3.4-5.0) Calcium Level 7.4 MG/DL (8.5-10.1) 7.6 MG/DL (8.5-10.1) 8.2 MG/DL (8.5-10.1) Aspartate Amino Transf (AST/SGOT) 56 U/L (15-37) 58 U/L (15-37) 46 U/L (15-37) Total Bilirubin 6.2 MG/DL (0.2-1.0) 5.8 MG/DL (0.2-1.0) 7.5 MG/DL (0.2-1.0) Potassium Level 3.4 MEQ/L (3.5-5.1) 3.4 MEQ/L (3.5-5.1) Estimat Glomerular Filtration Rate 62 ML/MIN (>89) Protein Corrected Calcium 7.7 MG/DL (8.5-10.1) 7.8 MG/DL (8.5-10.1) White Blood Count 3.2 TH/MM3 (4.0-11.0) 3.2 TH/MM3 (4.0-11.0) Red Blood Count 2.81 MIL/MM3 (4.00-5.30) 3.08 MIL/MM3 (4.00-5.30) Hemoglobin 9.2 GM/DL (11.6-15.3) 10.1 GM/DL (11.6-15.3) Hematocrit 26.8 % (35.0-46.0) 29.6 % (35.0-46.0) Platelet Count 26 TH/MM3 (150-450) 28 TH/MM3 (150-450) Lymphocytes # (Auto) 0.7 TH/MM3 (1.0-4.8) 0.3 TH/MM3 (1.0-4.8) Band Neutrophils % 16 % (0-6) Nucleated Red Blood Cells 1 /100 WBC (0-0) Platelet Estimate LOW (NORMAL) LOW (NORMAL) Prothrombin Time 16.8 SEC (9.8-11.6) 16.6 SEC (9.8-11.6) Magnesium Level 1.2 MG/DL (1.5-2.5) 1.4 MG/DL (1.5-2.5) Alkaline Phosphatase 118 U/L (45-117) Ammonia 102 MCMOL/L (11-32) 129 MCMOL/L (11-32) Neutrophils (%) (Auto) 89.2 % (16.0-70.0) Lymphocytes (%) (Auto) 8.5 % (9.0-44.0) Ovalocytes 1+ (NORMAL) Direct Bilirubin 3.7 MG/DL (0.0-0.2) Indirect Bilirubin 3.8 MG/DL (0.0-0.8) Test 10/13/17 17:26 10/14/17 06:35 Hemoglobin 9.5 GM/DL (11.6-15.3) 10.0 GM/DL (11.6-15.3) Hematocrit 27.7 % (35.0-46.0) 29.4 % (35.0-46.0) Red Blood Count 3.04 MIL/MM3 (4.00-5.30) Platelet Count 32 TH/MM3 (150-450) Neutrophils (%) (Auto) 88.0 % (16.0-70.0) Lymphocytes (%) (Auto) 7.4 % (9.0-44.0) Lymphocytes # (Auto) 0.3 TH/MM3 (1.0-4.8) Platelet Estimate LOW (NORMAL) Ovalocytes 1+ (NORMAL) Random Glucose 156 MG/DL (74-106) Albumin 3.0 GM/DL (3.4-5.0) Calcium Level 8.4 MG/DL (8.5-10.1) Alkaline Phosphatase 130 U/L (45-117) Aspartate Amino Transf (AST/SGOT) 41 U/L (15-37) Total Bilirubin 6.4 MG/DL (0.2-1.0) Ammonia 78 MCMOL/L (11-32) Imaging Last Impressions Abdomen/Pelvis CT 10/09/17 0000 Signed Impressions: Service Date/Time: Monday, October 09, 2017 13:05 - CONCLUSION: 1. Cirrhotic liver with portal hypertension including large recanalized periumbilical vein and prominent splenorenal collaterals. There are small gastroesophageal varices. No significant ascites. 2. Cholelithiasis. 3. Otherwise, no definite acute animality. Yoel Winters MD PE at Discharge GENERAL: Well-nourished, well-developed patient in NAD. Awake and alert. Oriented x 3. SKIN: Warm and dry. Appears less jaundiced today. HEAD: Normocephalic. Atraumatic. EYES: EOMI. (+)scleral icterus. No injection or drainage. ENT: No nasal bleeding or discharge. Mucous membranes pink and moist. No blood noted in mouth today. NECK: Trachea midline. CARDIOVASCULAR: Regular rate and rhythm. S1, S2 noted. No murmur appreciated. RESPIRATORY: Nonlabored. Clear to auscultation. Breath sounds equal bilaterally. GASTROINTESTINAL: Abdomen soft, non-tender, nondistended. Normoactive bowel sounds x4. MUSCULOSKELETAL: No obvious deformities. Extremities without clubbing, cyanosis , or edema. NEUROLOGICAL: Awake. Oriented. Able to move all extremities spontaneously. Motor and sensory function grossly intact. Normal speech. PSYCHIATRIC: Appropriate mood and affect; insight and judgment normal. Pt update on day of discharge Follow up on patient with GIB, liver cirrhosis, alcohol abuse. Patient seen and examined. She states she feels better today. She is more clear headed and less drowsy. Reports continued episodes of bright red blood per rectum of following bowel movements but improved throughout the day. She denies any shortness of breath or chest pain. Denies any headache dizziness or lightheadedness. Denies any nausea, vomiting or abdominal pain. The patient was resting comfortably in bed. She was looking forward to going home. She said she would take her medications as recommended. Hospital Course Patient admitted with acute alcohol intoxication, history of alcohol abuse, hepatic encephalopathy, transaminitis and GI bleed with ongoing rectal bleeding for 2 weeks. Patient's Hemoccult was positive in the ED. She was found to be thrombocytopenic secondary to chronic alcohol abuse. Chemoprophylaxis was held. Patient was started on a Protonix and Octreotide IV as well as oral Carafate. Hemoglobin was stable at admission at 10.7 and continued to be monitored closely. Patient was coagulopathic with elevated INR. CIWA protocol was initiated and patient was started on multivitamin, thiamine and folate daily. CT of the abdomen and pelvis revealed cirrhosis, portal hypertension, varices and cholelithiasis. Patient's ammonia level was elevated and she was started on lactulose 30 mL 4 times a day. GI was consulted. Patient underwent panendoscopy and was found to have Guillaume's esophagus, gastritis, hiatal hernia , moderate diverticulosis, 5 x 5 cm circumferential diffuse colitis with erythematous, friable and oozing blood mucosa, sessile polyp in the ascending colon, internal and external hemorrhoids. Patient had increasing levels of bilirubin. She became more jaundice had witnessed active bleeding in her mouth as well as bright red blood with stooling. INR increased to 1.7 and patient was given vitamin K. She was started on IV Solu-Medrol per GI. Patient developed some atypical chest pain and ACS was ruled out with negative serial troponins and EKGs. Electrolyte abnormalities of hypokalemia and hypomagnesemia responded to appropriate repletion. She continued to have complaints of fatigue and drowsiness and repeat ammonia level showed increase to 129. Her lactulose dose was increased to 30 mL every 4 hours with goal of 3- 4 soft bowel movements daily. Patient improved clinically. She became more alert. Liver function test and bilirubin showed a downward trend. Ammonia level improved to 78. Hemoglobin and hematocrit remained stable throughout her hospital course and she did not require transfusion. Patient participated with occupational therapy and physical therapy who did not recommend any continued therapy following discharge. Patient was cleared by GI for discharge to home. Patient was advised on antireflux measures as well as avoidance of nonsteroidal anti-inflammatories. Patient was instructed on a high fiber diet, yearly Hemoccult testing and no seeds and nuts and popcorn and diet. Most importantly , patient was advised repeatedly on the critical importance of complete and total alcohol cessation. GI planned for repeat EGD in 6 months and colonoscopy in one year. She was continued on oral steroids and PPI per GI with instructions to follow-up with GI in 1-2 weeks as an outpatient. Hemochromatosis labs pending at the time of discharge. Agree with hospital course as above. She will follow up with GI as an outpatient. Pt Condition on Discharge: Stable Discharge Disposition: Discharge Home Discharge Time: > 30 minutes Discharge Instructions DIET: Follow Instructions for: Heart Healthy Diet, High Fiber Diet, Low Sodium Diet, Liver Disease Diet Additional Diet Instructions: Avoid nuts, seeds and popcorn in diet Activities you can perform: Regular-No Restrictions Other Activity Instructions: Absolutely no alcohol consumption Follow up Referrals: Gastroenterology - 1 Week with Asuncion Macias MD PCP Follow-up - 1 Week with Shoemaker,Parviz R. DO New Medications: Pantoprazole (Protonix) 40 Mg Tab 40 MG PO BID for Reflux, #60 TAB 0 Refills Prednisone (Prednisone) 20 Mg Tab 30 MG PO DAILY for LIVER CIRRHOSIS, #30 TAB 0 Refills Propranolol (Propranolol) 10 Mg Tab 10 MG PO Q12HR for VARICES/BLEEDING RISK, #60 TAB 0 Refills Magnesium Oxide (Magnesium Oxide) 400 Mg Tab 800 MG PO DAILY@1100 for Nutritional Supplement, #5 TAB Thiamine HCl (Gnp Vitamin B-1) 100 Mg Tab 100 MG PO DAILY for Nutritional Supplement, #30 TAB [Lactulose Liq] () 30 ML SYRP 30 ML PO Q4HR for HYPERAMMONEMIA, #30 Additional Information The exam, history, and the medical decision-making described in the above note were completed with the assistance of the mid-level provider. I reviewed and agree with the findings presented. I attest that I had a [id number] encounter with the patient on the same day, and personally performed and documented my assessment and findings in the medical record. Connie Velasquez Oct 14, 2017 11:35 Fran Vidal DO Oct 14, 2017 17:09
[2017-10-14] MEDS ORDERED: PROT40TA PO (11:37)
[2017-10-14] MEDS ORDERED: PROP10TA6 PO (11:46)
[2017-10-14] MEDS ORDERED: THIA100 PO (12:04)
[2017-10-14] MEDS ORDERED: MAGN400T2 PO (12:04)
--- NOTE | 2017-10-14 12:09 | HHI.DCPOC ---
Discharge Care Plan Diagnosis: (1) Alcohol dependence (2) Transaminitis (3) GI bleed (4) Thrombocytopenia (5) Liver cirrhosis, alcoholic (6) Hyperbilirubinemia (7) Gastritis (8) Colitis (9) Coagulopathy (10) Guillaume esophagus (11) Anemia (12) Alcohol intoxication (13) Hypomagnesemia (14) Portal hypertension (15) Hepatic encephalopathy (16) Abdominal pain (17) Jaundice (18) Alcoholic hepatitis (19) Hypokalemia Goals to Promote Your Health * To prevent worsening of your condition and complications * To maintain your health at the optimal level Directions to Meet Your Goals You are strongly advised to stop all alcohol consumption indefinitely Recommend avoiding spicy, citrus, fatty, fried foods, chocolate, peppermint, alcohol, caffeine Recommend sitting up for one hour after each meal and sitting up for 2-3 hours after dinner before lying down to eat Recommend keeping head of bed slightly elevated Avoid all non steroidal antiinflammatory products such as aspirin, advil, ibuprofen, aleve, Goody's, etc Take your medications as prescribed Follow your dietary instruction Follow activity as directed Keep your appointments as scheduled Take your immunizations and boosters as scheduled If your symptoms worsen call your PCP, if no PCP go to Urgent Care Center or Emergency Room Smoking is Dangerous to Your Health. Avoid second hand smoke Call the 24-hour hour crisis hotline for domestic abuse at Connie Velasquez Oct 14, 2017 12:09
[2017-10-14] MEDS ORDERED: PROPRANOLOL HCL 10 MG TAB PO SCH (12:15)
[2017-10-15 00:29] LABS: HEREDITARY HEMOCHROM SPECIMEN WB Whole Blood
== END 2017-10-14 14:49 | disposition home or self-care (01) ==
LOC: NEPC 23:01 → NEDA 10-09 01:26 → NEPHCDU 10-09 04:29 → NEPFCDU 10-11 16:33
PROVIDERS: ADMIT Hospitalist; ATTEND Hospitalist
DX: K51.211 Ulcerative (chronic) proctitis with rectal bleeding (principal); K57.30 Diverticulosis of large intestine without perforation or abscess without bleeding; K63.5 Polyp of colon; K62.5 Hemorrhage of anus and rectum; K64.4 Residual hemorrhoidal skin tags; K64.8 Other hemorrhoids; K44.9 Diaphragmatic hernia without obstruction or gangrene; K22.70 Barrett's esophagus without dysplasia; K31.9 Disease of stomach and duodenum, unspecified; D50.9 Iron deficiency anemia, unspecified; K70.31 Alcoholic cirrhosis of liver with ascites; D69.59 Other secondary thrombocytopenia; K76.6 Portal hypertension; D68.9 Coagulation defect, unspecified; F10.229 Alcohol dependence with intoxication, unspecified; R74.0 Nonspecific elevation of levels of transaminase and lactic acid dehydrogenase [LDH]; E83.42 Hypomagnesemia; R94.31 Abnormal electrocardiogram [ECG] [EKG]; Z79.899 Other long term (current) drug therapy
CPT/HCPCS: 00740; 43235; 45388; 74176; 80053; 80307; 81256; 82140; 82248; 82728; 82948; 83036; 83540; 83550; 83735; 84100; 84155; 84439; 84443; 84484; 85007; 85014; 85018; 85025; 85027; 85610; 85730; 86850; 86900; 86901; 86920; 93005; 96361; 96365; 96366; 96367; 96368; 96372; 96375; 96376; 97162; 97166; 99285; C9113; G0378; G8987; G8988; G8989; J2354; J2405; J2920; J3430; J3475; J7030; J7040

== ENCOUNTER 2017-11-01 23:37 | Emergency (ER) | payer OTHER ==
[~2017-11-01] VITALS: Ht 160 cm; Wt 59.0 kg
[~2017-11-01 23:37] MED LIST changes: -FURO20TA PO; -LACT10SO PO; +Lactulose Liq PO; +MAGN400T2 PO; -OXYC1CAP PO; -PANT40TA3 PO; -POTA-163 PO; +PRED20 PO; +PROP10TA6 PO; +PROT40TA PO; -SPIR50TA PO; +THIA100 PO
[2017-11-01 23:42] VITALS: BP 212/116; PULSE 86; RESP 20; TEMP 98.1; O2SAT 97
[2017-11-02 01:08] LABS: INTERNATIONAL NORMALIZED RATIO 1.3 RATIO; PROTHROMBIN TIME - PATIENT 12.7 SEC (9.8-11.6)
[2017-11-02 01:16] LABS: ALBUMIN 3.5 GM/DL (3.4-5.0); ALT (GPT) 49 U/L (10-53); AST (GOT) 86 U/L (15-37); BICARBONATE 26.2 MEQ/L (21.0-32.0); BLOOD UREA NITROGEN 6 MG/DL (7-18); CALCIUM 8.8 MG/DL (8.5-10.1); CHLORIDE 111 MEQ/L (98-107); CREATININE 0.48 MG/DL (0.50-1.00); GLOMERULAR FILTRATION RATE 134 ML/MIN (>89); GLUCOSE,RANDOM 130 MG/DL (74-106); MAGNESIUM 1.7 MG/DL (1.5-2.5); SODIUM (NA) 145 MEQ/L (136-145)
[2017-11-02 01:18] LABS: ALKALINE PHOSPHATASE 296 U/L (45-117); AUTOMATED NEUTROPHIL # 3.2 TH/MM3 (1.8-7.7); BASOPHIL % 0.6 % (0.0-2.0); EOSINOPHIL # 0.2 TH/MM3 (0-0.4); EOSINOPHIL % 3.1 % (0.0-4.0); HEMATOCRIT 36.6 % (35.0-46.0); HEMOGLOBIN 12.7 GM/DL (11.6-15.3); LYMPH % 25.1 % (9.0-44.0); LYMPHOCYTE # 1.4 TH/MM3 (1.0-4.8); MEAN CORPUSCULAR HEMOGLOBIN 33.3 PG (27.0-34.0); MEAN CORPUSCULAR HGB CONC 34.6 % (32.0-36.0); MEAN PLATELET VOLUME 8.4 FL (7.0-11.0); MONO % 11.3 % (0.0-8.0); MONOCYTE # 0.6 TH/MM3 (0-0.9); NEUT % 59.9 % (16.0-70.0); PLATELET COUNT 37 TH/MM3 (150-450); RED BLOOD COUNT 3.81 MIL/MM3 (4.00-5.30); RED CELL DISTRIBUTION WIDTH 17.6 % (11.6-17.2); TOTAL BILIRUBIN ADULT 5.8 MG/DL (0.2-1.0); TOTAL PROTEIN 7.7 GM/DL (6.4-8.2); WHITE BLOOD COUNT 5.4 TH/MM3 (4.0-11.0)
--- NOTE | 2017-11-02 02:19 | PD ---
HPI Chief Complaint: GI Complaint Time Seen by Provider: 00:23 Travel History International Travel<30 days: No Contact w/Intl Traveler<30days: No Traveled to known affect area: No History of Present Illness HPI So 56 year-old woman who presents to the emergency department complaining of dizziness, lightheadedness, bright red blood per rectum, and weakness. She is a history of cirrhosis. Endorses ongoing alcohol use, most recently couple days ago. She is brought in by her family states that they checked on her. Patient landed complaint is generalized weakness. Recent admission for GI bleed and cirrhosis EGD that did not show any varices. History Past Medical History Narrative Medical Cirrhosis Tetanus Vaccination: > 5 Years Influenza Vaccination: No Menopausal: Yes Social History Alcohol Use: Yes Tobacco Use: No Allergies-Medications (Allergen,Severity, Reaction): Coded Allergies: promethazine (Verified Allergy, Intermediate, 11/01/17) NERVOUSNESS Reported Meds & Prescriptions Reported Meds & Active Scripts Active Magnesium Oxide 400 Mg Tab 800 Mg PO DAILY@1100 Propranolol (Propranolol HCl) 10 Mg Tab 10 Mg PO Q12HR Protonix (Pantoprazole Sodium) 40 Mg Tab 40 Mg PO BID Prednisone 20 Mg Tab 30 Mg PO DAILY Review of Systems Except as stated in HPI: all other systems reviewed are Neg Physical Exam Narrative GENERAL: 56 year-old woman, no acute distress. SKIN: Focused skin assessment warm/dry. Slightly decreased skin turgor. A little bit of a jaundiced hue. HEAD: Normocephalic. Is no contusions or bruising on the scalp. EYES: Pupils equal and round. No scleral icterus. No injection or drainage. ENT: No nasal bleeding or discharge. Mucous membranes pink and moist. Bruising on the left side of the face. NECK: Trachea midline. No JVD. CARDIOVASCULAR: Regular rate and rhythm. No murmur appreciated. RESPIRATORY: No accessory muscle use. Clear to auscultation. Breath sounds equal bilaterally. GASTROINTESTINAL: Abdomen soft, non-tender, nondistended. Hepatic and splenic margins not palpable. MUSCULOSKELETAL: No obvious deformities. No edema. NEUROLOGICAL: Awake and alert. No obvious cranial nerve deficits. Motor grossly within normal limits. Normal speech. PSYCHIATRIC: Appropriate mood and affect; insight and judgment normal. Data Data Last Documented VS Vital Signs Date Time Temp Pulse Resp B/P (MAP) Pulse Ox O2 Delivery O2 Flow Rate FiO2 12/25/17 23:42 98.1 86 20 212/116 (148) 97 Room Air Orders Orders Complete Blood Count With Diff (11/02/17 00:33) Comprehensive Metabolic Panel (11/02/17 00:33) Act Partial Throm Time (Ptt) (11/02/17 00:33) Prothrombin Time / Inr (Pt) (11/02/17 00:33) Magnesium (Mg) (11/02/17 00:33) Iv Access Insert/Monitor (11/02/17 00:33) Ammonia (11/02/17 00:33) Ct Brain W/O Iv Contrast(Rout) (11/02/17 ) Alcohol (Ethanol) (11/02/17 00:33) Labs Laboratory Tests Test 11/02/17 00:40 11/02/17 00:48 Ammonia 81 MCMOL/L White Blood Count 5.4 TH/MM3 Red Blood Count 3.81 MIL/MM3 Hemoglobin 12.7 GM/DL Hematocrit 36.6 % Mean Corpuscular Volume 96.0 FL Mean Corpuscular Hemoglobin 33.3 PG Mean Corpuscular Hemoglobin Concent 34.6 % Red Cell Distribution Width 17.6 % Platelet Count 37 TH/MM3 Mean Platelet Volume 8.4 FL Neutrophils (%) (Auto) 59.9 % Lymphocytes (%) (Auto) 25.1 % Monocytes (%) (Auto) 11.3 % Eosinophils (%) (Auto) 3.1 % Basophils (%) (Auto) 0.6 % Neutrophils # (Auto) 3.2 TH/MM3 Lymphocytes # (Auto) 1.4 TH/MM3 Monocytes # (Auto) 0.6 TH/MM3 Eosinophils # (Auto) 0.2 TH/MM3 Basophils # (Auto) 0.0 TH/MM3 CBC Comment AUTO DIFF Differential Comment AUTO DIFF CONFIRMED Platelet Estimate LOW Platelet Morphology Comment NORMAL Prothrombin Time 12.7 SEC Prothromb Time International Ratio 1.3 RATIO Activated Partial Thromboplast Time 28.2 SEC Blood Urea Nitrogen 6 MG/DL Creatinine 0.48 MG/DL Random Glucose 130 MG/DL Total Protein 7.7 GM/DL Albumin 3.5 GM/DL Calcium Level 8.8 MG/DL Magnesium Level 1.7 MG/DL Alkaline Phosphatase 296 U/L Aspartate Amino Transf (AST/SGOT) 86 U/L Alanine Aminotransferase (ALT/SGPT) 49 U/L Total Bilirubin 5.8 MG/DL Sodium Level 145 MEQ/L Potassium Level 3.8 MEQ/L Chloride Level 111 MEQ/L Carbon Dioxide Level 26.2 MEQ/L Anion Gap 8 MEQ/L Estimat Glomerular Filtration Rate 134 ML/MIN Ethyl Alcohol Level 332 MG/DL [facility] Medical Decision Making Medical Screen Exam Complete: Yes Emergency Medical Condition: Yes Interpretation(s) LABS: CBC is unremarkable. Platelet count 37. CMP generally unremarkable. Bilirubin is up to 5.8. Ammonia 81 Coags unremarkable Differential Diagnosis Intoxication, cirrhosis, encephalopathy, other Narrative Course Medical decision making 56-year-old woman presents to the emergency department complaining of generalized weakness and unsteadiness. History cirrhosis. All call will still super high alcohol level still elevated. Patient initially stated last check was 2 days ago. Chemistries show worsening liver disease. No evidence of bleeding. Hemoglobin stable. Diagnosis Primary Impression: Alcohol intoxication Additional Impression: Alcoholic cirrhosis Additional Instructions: Avoid alcohol. Follow-up with your primary doctor for further evaluation and treatment of your cirrhosis. Disposition: 01 DISCHARGE HOME Condition: Stable Ciaran Novak MD Nov 02, 2017 02:19
--- NOTE | 2017-11-02 02:20 | RADRPT ---
EXAM DATE/TIME: 11/02/2017 02:07 [facility] COMPARISON: No previous studies available for comparison. INDICATIONS : Altered mental status. ETOH RADIATION DOSE: 32.70 CTDIvol (mGy) MEDICAL HISTORY : Hypertension. Gastroesophageal reflux disease. ASthma SURGICAL HISTORY : None. ENCOUNTER: Initial ACUITY: 1 day PAIN SCALE: 0/10 LOCATION: cranial TECHNIQUE: Multiple contiguous axial images were obtained of the head. Using automated exposure control and adj ustment of the mA and/or kV according to patient size, radiation dose was kept as low as reasonably a chievable to obtain optimal diagnostic quality images. DICOM format image data is available electro nically for review and comparison. FINDINGS: There is no evidence for intracranial hemorrhage, mass effect, mass lesions, or edema. The visualize d bony structures appear intact. Slight degree of brain atrophy is seen. Slight periventricular whit e matter changes are seen nonspecific mostly consistent with chronic small vessel ischemic changes. There are no signs of acute infarction for technique. There is also an area of lucency involving the midportion of the [place] possibly due to small vessel ischemic changes and/or may be old lacunar infarc tion. There is opacification of the left sphenoid sinus chronic in nature. CONCLUSION: Slight atrophic and small vessel ischemic changes without any evidence for acute hemorrhage or mass effect, chronic sinusitis left sphenoid sinus. Cathi Fu MD on November 02, 2017 at 2:17 Board Certified Radiologist. This report was verified electronically.
[2017-11-02 02:46] VITALS: BP 130/57; PULSE 107; RESP 16; O2SAT 97
== END 2017-11-02 06:07 | disposition home or self-care (01) ==
LOC: NEPE 23:37
DX: F10.129 Alcohol abuse with intoxication, unspecified (principal); K70.30 Alcoholic cirrhosis of liver without ascites; R53.1 Weakness; R42 Dizziness and giddiness; K62.5 Hemorrhage of anus and rectum; Z79.899 Other long term (current) drug therapy; Z88.8 Allergy status to other drugs, medicaments and biological substances
CPT/HCPCS: 70450; 80053; 80307; 82140; 83735; 85025; 85610; 85730; 99284

== ENCOUNTER 2017-12-20 17:30 | Inpatient (IN) | payer OTHER ==
[~2017-12-20] VITALS: Ht 165.1 cm; Wt 67.1 kg
[~2017-12-20 17:30] MED LIST changes: -Lactulose Liq PO; -THIA100 PO
[2017-12-20] MEDS ORDERED: IOHEXOL 350 MG/ML 10 ML VIAL (for RAD DIAG) IVCONTRAST ONE (17:31)
[2017-12-20] MEDS ORDERED: SODIUM CHLOR 0.9% 1000 ML INJ 1,000 ML IV SCH (17:45)
[2017-12-20] MEDS ORDERED: SODIUM CHLORIDE 0.9% FLUSH 10 ML FLUSH IV FLUSH PRN (17:45)
[2017-12-20 17:52] VITALS: BP 143/67; PULSE 125; RESP 16; TEMP 99.1; O2SAT 97
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
[2017-12-20 18:15] LABS: AUTOMATED NEUTROPHIL # 1.8 TH/MM3 (1.8-7.7); BASOPHIL % 0.3 % (0.0-2.0); EOSINOPHIL % 0.8 % (0.0-4.0); HEMATOCRIT 25.1 % (35.0-46.0); HEMOGLOBIN 8.6 GM/DL (11.6-15.3); LYMPH % 11.9 % (9.0-44.0); LYMPHOCYTE # 0.3 TH/MM3 (1.0-4.8); MEAN CELL VOLUME 98.4 FL (80.0-100.0); MEAN CORPUSCULAR HEMOGLOBIN 33.8 PG (27.0-34.0); MEAN CORPUSCULAR HGB CONC 34.4 % (32.0-36.0); MEAN PLATELET VOLUME 7.9 FL (7.0-11.0); MONO % 15.1 % (0.0-8.0); MONOCYTE # 0.4 TH/MM3 (0-0.9); NEUT % 71.9 % (16.0-70.0); RED BLOOD COUNT 2.55 MIL/MM3 (4.00-5.30); RED CELL DISTRIBUTION WIDTH 17.3 % (11.6-17.2); WHITE BLOOD COUNT 2.6 TH/MM3 (4.0-11.0)
[2017-12-20 18:21] LABS: PLATELET COUNT 18 TH/MM3 (150-450)
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
[2017-12-20 18:27] LABS: INTERNATIONAL NORMALIZED RATIO 1.9 RATIO; PROTHROMBIN TIME - PATIENT 19.2 SEC (9.8-11.6)
[2017-12-20 18:29] LABS: ALBUMIN 2.9 GM/DL (3.4-5.0); AST (GOT) 196 U/L (15-37); BICARBONATE 23.2 MEQ/L (21.0-32.0); BLOOD UREA NITROGEN 11 MG/DL (7-18); CALCIUM 8.8 MG/DL (8.5-10.1); CHLORIDE 102 MEQ/L (98-107); CREATININE 0.65 MG/DL (0.50-1.00); GLOMERULAR FILTRATION RATE 94 ML/MIN (>89); GLUCOSE,RANDOM 102 MG/DL (74-106); SODIUM (NA) 138 MEQ/L (136-145)
[2017-12-20 18:30] LABS: ALT (GPT) 42 U/L (10-53)
[2017-12-20 18:40] LABS: ALKALINE PHOSPHATASE 149 U/L (45-117); TOTAL BILIRUBIN ADULT 18.9 MG/DL (0.2-1.0); TOTAL PROTEIN 7.2 GM/DL (6.4-8.2)
[2017-12-20 18:51] LABS: BACTERIA, URINE MANY /hpf; BILIRUBIN, URINE MOD (NEG); BLOOD, URINE NEG (NEG); GLUCOSE,URINE NEG (NEG); KETONE, URINE 40 mg/dL (NEG); MUCUS URINE FEW /lpf (OCC); NITRITE,URINE POS (NEG); RENAL EPITHELIAL CELLS <1 /hpf; SQUAMOUS EPITHELIAL CELL URINE 4 /hpf (0-5); URINE COLOR DARK-ORANGE (YELLW/STRAW); URINE LEUKOCYTE ESTERASE MOD (NEG); WHITE BLOOD CELL CLUMPS OCC
[2017-12-20 19:01] LABS: TROPONIN I LESS THAN 0.02 NG/ML (0.02-0.05)
--- NOTE | 2017-12-20 19:37 | RADRPT ---
EXAM DATE/TIME: 12/20/2017 19:07 [facility] COMPARISON: No previous studies available for comparison. INDICATIONS : Altered mental status,old bruising around eyes and chin RADIATION DOSE: 42.61 CTDIvol (mGy) MEDICAL HISTORY : Hypertension. Seizures. Pancreatitis. SURGICAL HISTORY : None. ENCOUNTER: Initial ACUITY: 1 day PAIN SCALE: 6/10 LOCATION: cranial TECHNIQUE: Multiple contiguous axial images were obtained of the head. Using automated exposure control and adj ustment of the mA and/or kV according to patient size, radiation dose was kept as low as reasonably a chievable to obtain optimal diagnostic quality images. DICOM format image data is available electro nically for review and comparison. FINDINGS: CEREBRUM: The ventricles are normal for age. No evidence of midline shift, mass lesion, hemorrhage or acute in farction. No extra-axial fluid collections are seen. POSTERIOR FOSSA: The cerebellum and brainstem are intact. The 4th ventricle is midline. The cerebellopontine angle i s unremarkable. EXTRACRANIAL: The visualized portion of the orbits is intact. Fluid in the sphenoid sinus. SKULL: The calvaria is intact. No evidence of skull fracture. CONCLUSION: 1. No acute intracranial abnormalities. Fluid in the sphenoid sinus characteristic of sinusitis. Moises Leon MD on December 20, 2017 at 19:34 Board Certified Radiologist. This report was verified electronically.
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
[2017-12-20 20:00] VITALS: BP 111/53; PULSE 65; RESP 18; TEMP 97.9; O2SAT 96
[2017-12-20] MEDS ORDERED: cefTRIAXone INJ 1,000 MG in SODIUM CHLORIDE 0.9% INJ 100 ML IV ONE (20:00)
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
[2017-12-20 20:37] VITALS: BP 133/66; PULSE 104; RESP 16; O2SAT 98
[2017-12-20] MEDS ORDERED: SODIUM CHLOR 0.9% 1000 ML INJ 1,000 ML IV ONE (20:44)
[2017-12-20] MEDS ORDERED: PANTOPRAZOLE SODIUM 40 MG VIAL IV PUSH ONE (20:45)
[2017-12-20] MEDS ORDERED: POTASSIUM CHLORIDE 20 MEQ CONTROLLED RELEASE TAB PO ONE (21:00)
[2017-12-20] MEDS ORDERED: LORazepam 2 MG TAB PO PRN (21:00)
[2017-12-20] MEDS: SODIUM CHLORIDE 0.9% FLUSH 10 ML FLUSH IV FLUSH SCH (21:00)
[2017-12-20] MEDS ORDERED: LORazepam 1 MG TAB PO PRN (21:00)
[2017-12-20] MEDS ORDERED: NALOXONE HCL 0.4 MG/ML AMP IV PUSH PRN (21:00)
[2017-12-20] MEDS ORDERED: PHYTONADIONE 5 MG/SWFI 5 ML ORAL SYR PO ONE (21:00)
[2017-12-20] MEDS ORDERED: LORazepam 2 MG/ML VIAL IV PUSH PRN ×4 (21:00)
[2017-12-20] MEDS ORDERED: FLUMAZENIL 0.5 MG/5 ML VIAL IV PUSH PRN (21:00)
--- NOTE | 2017-12-20 22:05 | HHI.HP ---
HPI Service [facility] Primary Care Physician Unknown Admission Diagnosis hepatic encephalopathy, panycytopenia Diagnoses: Chief Complaint: Fall Travel History International Travel<30 Days: No Contact w/Intl Traveler <30 Da: No Traveled to Known Affected Are: No History of Present Illness Written by NI Wiley acting as scribe for [Edu] on 12/20/17 at 21: 55. 57 y/o female with a history of cirrhosis, varices, gastric ulcers presented to the ED after being found at home on the ground. Patient states she fell at home , and her friend came to check on her for her birthday and found her. She does not remember if she fell today but thinks she did. Denies frequent falls, despite the various stages of bruising. Denies any physical abuse at home. She states she feels week, and has abdominal pain. She denies any nausea, vomiting , diarrhea, fever or chills. Review of Systems Except as stated in HPI: all other systems reviewed are Neg Past Family Social History Past Medical History Cirrhosis Endometriosis varices Gastric ulcers Past Surgical History Lysis of adhesions Reported Medications Reported Meds & Active Scripts Active Magnesium Oxide 400 Mg Tab 800 Mg PO DAILY@1100 Propranolol (Propranolol HCl) 10 Mg Tab 10 Mg PO Q12HR Protonix (Pantoprazole Sodium) 40 Mg Tab 40 Mg PO BID Prednisone 20 Mg Tab 30 Mg PO DAILY Allergies: Coded Allergies: promethazine (Verified Allergy, Intermediate, 12/20/17) NERVOUSNESS Active Ordered Medications Current Medications Medications (Trade) Dose Ordered Sig/Cristal Route Start Time Stop Time Status Last Admin (NS Flush) 2 ml UNSCH PRN IV FLUSH 12/20/17 17:45 (NS Flush) 2 ml UNSCH PRN IV FLUSH 12/20/17 21:00 (NS Flush) 2 ml BID IV FLUSH 12/20/17 21:00 (Narcan Inj) 0.4 mg UNSCH PRN IV PUSH 12/20/17 21:00 Pantoprazole Sodium 80 mg/ Sodium Chloride 100 ml @ 10 mls/hr Q10H IV 12/20/17 21:55 (Mephyton Liq) 5 mg DAILY PO 12/21/17 09:00 (Romazicon Inj) 0.2 mg Q1M PRN IV PUSH 12/20/17 21:00 (Ativan) 1 mg Q4H PRN PO 12/20/17 21:00 (Ativan Inj) 1 mg Q4H PRN IV PUSH 12/20/17 21:00 (Ativan) 2 mg Q2H PRN PO 12/20/17 21:00 (Ativan Inj) 2 mg Q2H PRN IV PUSH 12/20/17 21:00 (Ativan Inj) 2 mg Q1H PRN IV PUSH 12/20/17 21:00 (Ativan Inj) 2 mg Q15M PRN IV PUSH 12/20/17 21:00 Family History Dad: Heart disease Social History Tobacco use: Denies Alcohol use: Quit 1 month ago, prior heavy drinker (vodka daily) Illicit drug use: Denies Physical Exam Vital Signs Vital Signs Date Time Temp Pulse Resp B/P (MAP) Pulse Ox O2 Delivery O2 Flow Rate FiO2 12/20/17 20:37 104 16 133/66 (88) 98 Room Air 12/20/17 17:52 99.1 125 16 143/67 (92) 97 Room Air Physical Exam GENERAL: This is a well-nourished, well-developed patient, who is a poor historian SKIN: Multiple stages of bruising on neck, arms and abdomen. HEAD: Atraumatic. Normocephalic. EYES: Pupils equal round and reactive. ENT: Nose without bleeding, purulent drainage or septal hematoma. Airway patent. NECK: Trachea midline. No JVD. [place] collar in place. CARDIOVASCULAR: Regular rate and rhythm without murmurs, gallops, or rubs. RESPIRATORY: Clear to auscultation. Breath sounds equal bilaterally. No wheezes , rales, or rhonchi. GASTROINTESTINAL: Abdomen soft, tender, distended. No hepato-splenomegaly, or palpable masses. No guarding. MUSCULOSKELETAL: Extremities without clubbing, cyanosis, or edema. No joint tenderness, effusion, or edema noted. No calf tenderness. NEUROLOGICAL: Awake and alert. Motor and sensory grossly within normal limits. Normal speech. Laboratory Laboratory Tests Test 12/20/17 17:35 12/20/17 17:55 12/20/17 18:10 12/20/17 19:25 Magnesium Level 1.4 White Blood Count 2.6 Red Blood Count 2.55 Hemoglobin 8.6 Hematocrit 25.1 Mean Corpuscular Volume 98.4 Mean Corpuscular Hemoglobin 33.8 Mean Corpuscular Hemoglobin Concent 34.4 Red Cell Distribution Width 17.3 Platelet Count 18 Mean Platelet Volume 7.9 Neutrophils (%) (Auto) 71.9 Lymphocytes (%) (Auto) 11.9 Monocytes (%) (Auto) 15.1 Eosinophils (%) (Auto) 0.8 Basophils (%) (Auto) 0.3 Neutrophils # (Auto) 1.8 Lymphocytes # (Auto) 0.3 Monocytes # (Auto) 0.4 Eosinophils # (Auto) 0.0 Basophils # (Auto) 0.0 CBC Comment AUTO DIFF Differential Comment AUTO DIFF CONFIRMED Platelet Estimate RARE Platelet Morphology Comment NORMAL Prothrombin Time 19.2 Prothromb Time International Ratio 1.9 Activated Partial Thromboplast Time 32.1 Blood Urea Nitrogen 11 Creatinine 0.65 Random Glucose 102 Total Protein 7.2 Albumin 2.9 Calcium Level 8.8 Alkaline Phosphatase 149 Aspartate Amino Transf (AST/SGOT) 196 Alanine Aminotransferase (ALT/SGPT) 42 Total Bilirubin 18.9 Sodium Level 138 Potassium Level 3.4 Chloride Level 102 Carbon Dioxide Level 23.2 Anion Gap 13 Estimat Glomerular Filtration Rate 94 Ammonia 60 Total Creatine Kinase 82 Troponin I LESS THAN 0.02 Lipase 258 Thyroid Stimulating Hormone 3rd Gen 1.230 Ethyl Alcohol Level LESS THAN 3 Urine Color DARK-ORANGE Urine Turbidity HAZY Urine pH 7.0 Urine Specific [place] 1.016 Urine Protein 30 Urine Glucose (UA) NEG Urine Ketones 40 Urine Occult Blood NEG Urine Nitrite POS Urine Bilirubin MOD Urine Urobilinogen 4.0 Urine Leukocyte Esterase MOD Urine RBC 1 Urine WBC 15 Urine WBC Clumps OCC Urine Squamous Epithelial Cells 4 Urine Renal Epithelial Cells <1 Urine Bacteria MANY Urine Mucus FEW Microscopic Urinalysis Comment CATH-CULTURE IND Urine Opiates Screen NEG Urine Barbiturates Screen NEG Urine Amphetamines Screen NEG Urine Benzodiazepines Screen NEG Urine Cocaine Screen NEG Urine Cannabinoids Screen NEG Lactic Acid Level 1.4 Date/Time Source Procedure Growth Status 12/20/17 19:45 Blood Peripheral Aerobic Blood Culture Pending Received 12/20/17 19:45 Blood Peripheral Anaerobic Blood Culture Pending Received 12/20/17 18:10 Urine Catheterized Urine Urine Culture Pending Received Result Diagram: 2/12/18 1755 2/12/18 1755 Imaging Last Impressions Maxillofacial CT 12/20/17 1800 Signed Impressions: Service Date/Time: Wednesday, December 20, 2017 19:07 - CONCLUSION: 1. No acute bony abnormalities. Sphenoid sinusitis. Postop changes in left mastoid and temporal bone. Moises Leon MD Chest CT 12/20/17 1800 Signed Impressions: Service Date/Time: Wednesday, December 20, 2017 19:18 - CONCLUSION: 1. Healing fractures of the upper right fourth, fifth and sixth ribs. No pneumothorax or effusion. Distal esophageal varices. Moises Leon MD Abdomen/Pelvis CT 12/20/17 1800 Signed Impressions: Service Date/Time: Wednesday, December 20, 2017 19:18 - CONCLUSION: 1. Negative for acute traumatic injury within the abdomen or pelvis. 2. Liver cirrhosis with numerous varices periesophageal, perihepatic and retroperitoneal. Minimal ascites around the liver. Splenomegaly. Moises Leon MD Head CT [id number]/20/171744 Signed Impressions: Service Date/Time: Wednesday, December 20, 2017 19:07 - CONCLUSION: 1. No acute intracranial abnormalities. Fluid in the sphenoid sinus characteristic of sinusitis. Moises Leon MD Chest X-Ray [id number]/20/171744 Signed Impressions: Service Date/Time: Wednesday, December 20, 2017 18:01 - CONCLUSION: No acute disease. Moises Leon MD Cervical Spine CT 12/20/17 0000 Draft Impressions: Service Date/Time: Wednesday, December 20, 2017 22:36 - CONCLUSION: 1. No acute findings. MD Veda Calles VTE Risk Assessment Caprini VTE Risk Assessment: Mod/High Risk (score >= 2) VTE Pharm Contraindication: High risk for bleeding Caprini Risk Assessment Model Point Value = 1 Point Value = 2 Point Value = 3 Point Value = 5 Age 41-60 Minor surgery BMI > 25 kg/m2 Swollen legs Varicose veins or History of unexplained or recurrent spontaneous Oral contraceptives or hormone replacement Sepsis (< 1 month) Serious lung disease, including pneumonia (< 1 month) Abnormal pulmonary function Acute myocardial infarction Congestive heart failure (< 1 month) History of inflammatory bowel disease Medical patient at bed rest Age 61-74 Arthroscopic surgery Major open surgery (> 45 min) Laparoscopic surgery (> 45 min) Malignancy Confined to bed (> 72 hours) Immobilizing plaster cast Central venous access Age >= 75 History of VTE Family history of VTE Factor V Leiden Prothrombin [id number] Lupus anticoagulant Anticardiolipin antibodies Elevated serum homocysteine Heparin-induced thrombocytopenia Other congenital or acquired thrombophilia Stroke (< 1 month) Elective arthroplasty Hip, pelvis, or leg fracture Acute spinal cord injury (< 1 month) Prophylaxis Regimen Total Risk Factor Score Risk Level Prophylaxis Regimen 0-1 Low Early ambulation 2 Moderate Order ONE of the following: *Sequential Compression Device (SCD) *Heparin 5000 units SQ BID 3-4 Higher Order ONE of the following medications: *Heparin 5000 units SQ TID *Enoxaparin/Lovenox 40 mg SQ daily (WT < 150 kg, CrCl > 30 mL/min) *Enoxaparin/Lovenox 30 mg SQ daily (WT < 150 kg, CrCl > 10-29 mL/min) *Enoxaparin/Lovenox 30 mg SQ BID (WT < 150 kg, CrCl > 30 mL/min) AND/OR *Sequential Compression Device (SCD) 5 or more Highest Order ONE of the following medications: *Heparin 5000 units SQ TID (Preferred with Epidurals) *Enoxaparin/Lovenox 40 mg SQ daily (WT < 150 kg, CrCl > 30 mL/min) *Enoxaparin/Lovenox 30 mg SQ daily (WT < 150 kg, CrCl > 10-29 mL/min) *Enoxaparin/Lovenox 30 mg SQ BID (WT < 150 kg, CrCl > 30 mL/min) AND *Sequential Compression Device (SCD) Assessment and Plan Problem List: (1) Thrombocytopenia ICD Code: D69.6 - Thrombocytopenia, unspecified Status: Acute (2) Liver cirrhosis, alcoholic ICD Code: K70.30 - Alcoholic cirrhosis of liver without ascites Assessment and Plan 57 y/o female with a history of cirrhosis, varices, gastric ulcers presented to the ED after being found at home on the ground. Fall, related to Acute encephalopathy suspect due to hyperammonemia Ammonia level 60 CT neck reviewed and shows no acute abnormalities Maxillofacial CT reviewed and shows no acute abnormalities. Head CT reviewed and unremarkable. -PT eval and treat -Fall precautions Pancytopenia, platelets 18, hgb 8.6, due to liver cirrhosis guaiac positive -Transfuse 1 pack of PRBCs, hold on platelets -Avoid anticoagulation -Consult gastroenterology for recommendations -CBC in AM -Protonix drip - start lactulose twice a day UTI, moderate leukocyte esterase -Rocephin IV daily -Urine culture pending Liver cirrhosis, chronic Abdomen CT reviewed and shows liver cirrhosis with numerous varices. -Await gi recommendations EtOH abuse, patient denies use for one month, but is also a poor historian -[facility] protocol -Withdrawal precautions DVT prophylaxis: SCDs This note was transcribed by [email or web address] [Sabine Sanford]. I, Dr. Real Sorensen personally performed the history, physical exam, and medical decision making; and confirmed the accuracy of the information in the transcribed note. Authenticated by Dr. Real Sorensen on 12/20/17 at 21:55. Discussed Condition With Patient, ED physician Physician Certification 2 Midnight Certification Type: Admission for Inpatient Services Order for Inpatient Services The services are ordered in accordance with Medicare regulations or non- Medicare payer requirements, as applicable. In the case of services not specified as inpatient-only, they are appropriately provided as inpatient services in accordance with the 2-midnight benchmark. Estimated LOS (days): 2 days is the estimated time the patient will need to remain in the hospital, assuming treatment plan goals are met and no additional complications. Post-Hospital Plan: Sabine Hay Dec 20, 2017 22:05 Real Sorensen MD Dec 21, 2017 09:08
--- NOTE | 2017-12-20 22:52 | RADRPT ---
EXAM DATE/TIME: 12/20/2017 22:36 [facility] COMPARISON: No previous studies available for comparison. INDICATIONS : Trauma; fall. RADIATION DOSE: 25.29 CTDIvol (mGy) MEDICAL HISTORY : Hypertension. Pancreatitis. Asthma SURGICAL HISTORY : None. ENCOUNTER: Initial ACUITY: 1 day PAIN SCALE: 5/10 LOCATION: neck TECHNIQUE: Volumetric scanning of the cervical spine was performed. Multiplanar reconstructions in the sagittal, coronal and oblique axial planes were performed. Using automated exposure control and adjustment o f the mA and/or kV according to patient size, radiation dose was kept as low as reasonably achievable to obtain optimal diagnostic quality images. DICOM format image data is available electronically f or review and comparison. FINDINGS: VERTEBRAE: Normal vertebral body height. ALIGNMENT: No evidence of subluxation. C2-C3: The bony spinal canal is normal in size. No evidence of disc bulge or herniation. The neural forami na are bilaterally patent. C3-C4: The bony spinal canal is normal in size. No evidence of disc bulge or herniation. The neural forami na are bilaterally patent. C4-C5: The bony spinal canal is normal in size. No evidence of disc bulge or herniation. The neural forami na are bilaterally patent. C5-C6: The bony spinal canal is normal in size. No evidence of disc bulge or herniation. The neural forami na are bilaterally patent. C6-C7: The bony spinal canal is normal in size. No evidence of disc bulge or herniation. The neural forami na are bilaterally patent. C7-T1: The bony spinal canal is normal in size. No evidence of disc bulge or herniation. The neural forami na are bilaterally patent. CONCLUSION: 1. No acute findings. Moises Leon MD on December 20, 2017 at 22:47 Board Certified Radiologist. This report was verified electronically.
[2017-12-20] MEDS: PANTOPRAZOLE INJ 80 MG in SODIUM CHLORIDE 0.9% INJ 100 ML IV SCH (23:06)
[2017-12-21] VITALS (23 sets, daily range): BP systolic 110–148; BP diastolic 54–81; PULSE 95–126; RESP 16–20; TEMP 97.7–102; O2SAT 92–98
[2017-12-21] MEDS ORDERED: MAGNESIUM SULFATE 1 GM PREMIX 100 ML IV ONE (01:30)
[2017-12-21] MEDS: MORPHINE SULFATE 2 MG/ML INJ IV PUSH PRN ×2 (01:42→14:47)
[2017-12-21] MEDS: PANTOPRAZOLE INJ 80 MG in SODIUM CHLORIDE 0.9% INJ 100 ML IV SCH ×2 (08:22→17:46)
[2017-12-21] MEDS: SODIUM CHLORIDE 0.9% FLUSH 10 ML FLUSH IV FLUSH SCH ×2 (08:23→19:13)
[2017-12-21] MEDS: PHYTONADIONE 5 MG/SWFI 5 ML ORAL SYR PO SCH (08:25)
--- NOTE | 2017-12-21 10:32 | PD.CONS ---
HPI History of Present Illness This is a 57 yo female known to our service from previous admission in October and hx friable rectal tissue, mckeon's esophagus, cirrhosis who presented after being found down. "I fell." GI has been consulted for heme positive stool and cirrhosis. She was having some rectal bleeding during her last admission and colonoscopy was done 10/2017 found colitis rectum with firable oozing tissue, s/p ablation & polyp found. 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 No biopsies done at that time. She did follow up with GI in the office but she is unable to tell me anything further. It appears she is on prednisone. She says her rectal bleeding did resolve subsequently and denies any rectal bleeding, black tarry stool, hematemesis at this time. she denies any etoh, she quit drinking 1 month ago. Admits some mid abdominal pain. (Mai Weaver) PFSH Past Medical History Cirrhosis Endometriosis varices Gastric ulcers Past Surgical History Lysis of adhesions (Mai Weaver) Coded Allergies: promethazine (Verified Allergy, Intermediate, 12/20/17) NERVOUSNESS Family History Dad: Heart disease Social History Tobacco use: Denies Alcohol use: Quit 1 month ago, prior heavy drinker (vodka daily) Illicit drug use: Denies (Mai Weaver) Review of Systems Constitutional: COMPLAINS OF: Fatigue Gastrointestinal: COMPLAINS OF: Abdominal pain, DENIES: Black stools, Bloody stools, Constipation, Diarrhea, Nausea, Vomiting, Hematemesis Psychiatric: COMPLAINS OF: Confusion otherwise noncontributory (Mai Weaver) GI Exam Vitals I&O Vital Signs Date Time Temp Pulse Resp B/P (MAP) Pulse Ox O2 Delivery O2 Flow Rate FiO2 12/21/17 08:00 97.7 107 16 148/75 (99) 96 12/21/17 05:25 98.0 102 20 130/66 96 12/21/17 05:10 98.5 102 20 134/68 94 12/21/17 04:00 107 12/21/17 03:45 98.9 104 18 130/65 96 12/21/17 01:48 106 12/21/17 01:47 18 12/21/17 00:55 98.5 113 18 147/68 98 12/21/17 00:40 98.5 112 18 142/81 96 12/20/17 20:37 104 16 133/66 (88) 98 Room Air 12/20/17 20:00 97.9 65 18 111/53 (72) 96 12/20/17 17:52 99.1 125 16 143/67 (92) 97 Room Air I/O 12/20/17 12/20/17 12/20/17 12/21/17 12/21/17 12/21/17 07:00 15:00 23:00 07:00 15:00 23:00 Intake Total 2100 ml 520 ml Output Total 250 ml Balance 1850 ml 520 ml Intake Oral 0 ml IV Total 2100 ml 100 ml Packed Cells 420 ml Output Urine Total 250 ml # Voids 1 8 # Bowel Movements 0 Imaging Last Impressions Maxillofacial CT 12/20/17 1800 Signed Impressions: Service Date/Time: Wednesday, December 20, 2017 19:07 - CONCLUSION: 1. No acute bony abnormalities. Sphenoid sinusitis. Postop changes in left mastoid and temporal bone. Moises Leon MD Chest CT 12/20/17 1800 Signed Impressions: Service Date/Time: Wednesday, December 20, 2017 19:18 - CONCLUSION: 1. Healing fractures of the upper right fourth, fifth and sixth ribs. No pneumothorax or effusion. Distal esophageal varices. Moises Leon MD Abdomen/Pelvis CT 12/20/17 1800 Signed Impressions: Service Date/Time: Wednesday, December 20, 2017 19:18 - CONCLUSION: 1. Negative for acute traumatic injury within the abdomen or pelvis. 2. Liver cirrhosis with numerous varices periesophageal, perihepatic and retroperitoneal. Minimal ascites around the liver. Splenomegaly. Moises Leon MD Head CT [id number]/20/171744 Signed Impressions: Service Date/Time: Wednesday, December 20, 2017 19:07 - CONCLUSION: 1. No acute intracranial abnormalities. Fluid in the sphenoid sinus characteristic of sinusitis. Moises Leon MD Chest X-Ray [id number]/20/171744 Signed Impressions: Service Date/Time: Wednesday, December 20, 2017 18:01 - CONCLUSION: No acute disease. Moises Leon MD Cervical Spine CT 12/20/17 0000 Signed Impressions: Service Date/Time: Wednesday, December 20, 2017 22:36 - CONCLUSION: 1. No acute findings. Moises Leon MD Laboratory Test 12/20/17 17:35 12/20/17 17:55 12/20/17 18:10 12/20/17 19:25 Magnesium Level 1.4 MG/DL White Blood Count 2.6 TH/MM3 Red Blood Count 2.55 MIL/MM3 Hemoglobin 8.6 GM/DL Hematocrit 25.1 % Mean Corpuscular Volume 98.4 FL Mean Corpuscular Hemoglobin 33.8 PG Mean Corpuscular Hemoglobin Concent 34.4 % Red Cell Distribution Width 17.3 % Platelet Count 18 TH/MM3 Mean Platelet Volume 7.9 FL Neutrophils (%) (Auto) 71.9 % Lymphocytes (%) (Auto) 11.9 % Monocytes (%) (Auto) 15.1 % Eosinophils (%) (Auto) 0.8 % Basophils (%) (Auto) 0.3 % Neutrophils # (Auto) 1.8 TH/MM3 Lymphocytes # (Auto) 0.3 TH/MM3 Monocytes # (Auto) 0.4 TH/MM3 Eosinophils # (Auto) 0.0 TH/MM3 Basophils # (Auto) 0.0 TH/MM3 CBC Comment AUTO DIFF Differential Comment AUTO DIFF CONFIRMED Platelet Estimate RARE Platelet Morphology Comment NORMAL Prothrombin Time 19.2 SEC Prothromb Time International Ratio 1.9 RATIO Activated Partial Thromboplast Time 32.1 SEC Blood Urea Nitrogen 11 MG/DL Creatinine 0.65 MG/DL Random Glucose 102 MG/DL Total Protein 7.2 GM/DL Albumin 2.9 GM/DL Calcium Level 8.8 MG/DL Alkaline Phosphatase 149 U/L Aspartate Amino Transf (AST/SGOT) 196 U/L Alanine Aminotransferase (ALT/SGPT) 42 U/L Total Bilirubin 18.9 MG/DL Sodium Level 138 MEQ/L Potassium Level 3.4 MEQ/L Chloride Level 102 MEQ/L Carbon Dioxide Level 23.2 MEQ/L Anion Gap 13 MEQ/L Estimat Glomerular Filtration Rate 94 ML/MIN Ammonia 60 MCMOL/L Total Creatine Kinase 82 U/L Troponin I LESS THAN 0.02 NG/ML Lipase 258 U/L Thyroid Stimulating Hormone 3rd Gen 1.230 uIU/ML Ethyl Alcohol Level LESS THAN 3 MG/DL Urine Color DARK-ORANGE Urine Turbidity HAZY Urine pH 7.0 Urine Specific [place] 1.016 Urine Protein 30 mg/dL Urine Glucose (UA) NEG mg/dL Urine Ketones 40 mg/dL Urine Occult Blood NEG Urine Nitrite POS Urine Bilirubin MOD Urine Urobilinogen 4.0 MG/DL Urine Leukocyte Esterase MOD Urine RBC 1 /hpf Urine WBC 15 /hpf Urine WBC Clumps OCC Urine Squamous Epithelial Cells 4 /hpf Urine Renal Epithelial Cells <1 /hpf Urine Bacteria MANY /hpf Urine Mucus FEW /lpf Microscopic Urinalysis Comment CATH-CULTURE IND Urine Opiates Screen NEG Urine Barbiturates Screen NEG Urine Amphetamines Screen NEG Urine Benzodiazepines Screen NEG Urine Cocaine Screen NEG Urine Cannabinoids Screen NEG Lactic Acid Level 1.4 mmol/L Date/Time Source Procedure Growth Status 12/20/17 19:45 Blood Peripheral Aerobic Blood Culture Pending Received 12/20/17 19:45 Blood Peripheral Anaerobic Blood Culture Pending Received 12/20/17 18:10 Urine Catheterized Urine Urine Culture Pending Received Physical Examination HEENT: PERRL , normocephalic; ecchymoses face, + icterus CHEST: CTA CARDIAC: RRR ABDOMEN: Soft,mildly distended, nontender; bowel sounds are present in all four quadrants. EXTREMITIES: No clubbing, cyanosis, or edema. SKIN: ecchymoses throughout, jaundiced. NEIGHBORHOOD COORDINATOR: lethargic (Mai Weaver SECURITY ASSESSOR) Assessment and Plan Plan ASSESSMENT - anemia with heme pos stool - hgb 8.6 on admission. this is not far from her baseline. no obvious GI bleeding. She was having rectal bleeding last admission colonoscopy was done 10/2017 found colitis rectum with firable oozing tissue , s/p ablation & polyp found. 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 No biopsies done at that time. likely the heme pos stool is r/t this friable tissue and her low platelets, will transfuse and do flex sig, try to get a bx - elevated LFTs, jaundice, elevated NH - suspect etoh hepatitis. previous liver w/u unremarkable. denies etoh in the last month. DF 52, appears she is on prednisone taper NH 60, pt lethargic and mildly confused, BID lactulose started PLAN - flex sig tomorrow - obtain consent - NPO after midnight - 1 x mg citrate in am - transfuse 2 x PLT - transfuse 4 x FFP after plt - coags, LFTs, HH in am - continue lactulose - consider adding pentoxifylline - continue PO prednisone for now - further recs to follow pt seen by myself and Dr Murcia and this note is written on his behalf (Mai Weaver) Physician Comments Patient seen and examined, patient with anemia and guaiac positive stools, she had abnormal rectum on last endoscopy, she has alcoholic hepatitis with underlying cirrhosis, she also has coagulopathy and encephalopathy Agree with above Continue with current supportive care Monitor labs Plan for flexible sigmoidoscopy tomorrow We will correct her coagulopathy (Bridger Murcia MD) Mai Weaver Dec 21, 2017 10:32 Bridger Murcia MD Dec 21, 2017 17:33
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
[2017-12-21 18:08] LABS: AUTOMATED NEUTROPHIL # 1.7 TH/MM3 (1.8-7.7); BASOPHIL % 0.7 % (0.0-2.0); EOSINOPHIL # 0.1 TH/MM3 (0-0.4); EOSINOPHIL % 2.5 % (0.0-4.0); HEMATOCRIT 26.8 % (35.0-46.0); HEMOGLOBIN 9.5 GM/DL (11.6-15.3); LYMPH % 14.1 % (9.0-44.0); LYMPHOCYTE # 0.3 TH/MM3 (1.0-4.8); MEAN CELL VOLUME 94.5 FL (80.0-100.0); MEAN CORPUSCULAR HEMOGLOBIN 33.4 PG (27.0-34.0); MEAN CORPUSCULAR HGB CONC 35.3 % (32.0-36.0); MEAN PLATELET VOLUME 7.4 FL (7.0-11.0); MONO % 14.1 % (0.0-8.0); MONOCYTE # 0.3 TH/MM3 (0-0.9); NEUT % 68.6 % (16.0-70.0); RED BLOOD COUNT 2.83 MIL/MM3 (4.00-5.30); RED CELL DISTRIBUTION WIDTH 18.6 % (11.6-17.2); WHITE BLOOD COUNT 2.4 TH/MM3 (4.0-11.0)
[2017-12-21 18:11] LABS: PLATELET COUNT 16 TH/MM3 (150-450)
[2017-12-21 18:36] LABS: BICARBONATE 27.3 MEQ/L (21.0-32.0); CALCIUM 8.1 MG/DL (8.5-10.1); CREATININE 0.69 MG/DL (0.50-1.00)
[2017-12-21 18:50] LABS: TOXIC GRANULATION 2+ (NORMAL)
[2017-12-21] MEDS: LACTULOSE SYRUP 20 GM/30 ML CUP PO SCH (19:13)
[2017-12-21] MEDS ORDERED: POTASSIUM CHLORIDE 20 MEQ CONTROLLED RELEASE TAB PO ONE (21:00)
[2017-12-21] MEDS: POTASSIUM CHLOR 20 MEQ PREMIX 100 ML IV SCH ×2 (21:16→23:00)
[2017-12-21] MEDS: cefTRIAXone INJ 1,000 MG in SODIUM CHLORIDE 0.9% INJ 100 ML IV SCH (21:54)
[2017-12-22] VITALS (11 sets, daily range): BP systolic 124–156; BP diastolic 60–84; PULSE 102–132; RESP 17–18; TEMP 97.9–98.9; O2SAT 90–98
[2017-12-22] MEDS ORDERED: LACTATED RINGER'S 1000 ML IV PRN (03:30)
[2017-12-22] MEDS: PANTOPRAZOLE INJ 80 MG in SODIUM CHLORIDE 0.9% INJ 100 ML IV SCH ×2 (03:55→14:10)
[2017-12-22] MEDS ORDERED: MAGNESIUM CITRATE SOLN 300 ML BTL PO ONE (06:00)
[2017-12-22] MEDS: SODIUM CHLORIDE 0.9% FLUSH 10 ML FLUSH IV FLUSH SCH ×2 (09:04→20:53)
[2017-12-22] MEDS: LACTULOSE SYRUP 20 GM/30 ML CUP PO SCH ×3 (09:05→17:22)
[2017-12-22] MEDS: PHYTONADIONE 5 MG/SWFI 5 ML ORAL SYR PO SCH (09:05)
[2017-12-22] MEDS ORDERED: RESP: ALBUTEROL 2.5 MG/3 ML NEB (SCH) ONE (10:12)
[2017-12-22] MEDS ORDERED: RESP: ALBUTEROL 2.5 MG/3 ML NEB (SCH) INH ONE (10:13)
[2017-12-22] MEDS ORDERED: TERBUTALINE INJ 1 MG/ML AMP SQ ONE (10:15)
--- NOTE | 2017-12-22 11:43 | HHI.GIFU ---
Subjective Remarks Pt resting in bed. flex sig cancelled, pt with dyspnea. (Mai Weaver) Objective Vitals I&O Vital Signs Date Time Temp Pulse Resp B/P (MAP) Pulse Ox O2 Delivery O2 Flow Rate FiO2 12/22/17 08:00 98.8 125 17 141/73 (95) 90 12/22/17 04:00 98.1 123 18 156/84 (108) 93 12/22/17 01:45 98.5 107 18 138/82 93 12/22/17 00:53 98.2 114 18 145/82 95 12/22/17 00:38 97.9 102 18 140/72 96 12/22/17 00:00 97.9 102 18 140/72 (94) 96 12/21/17 23:58 104 12/21/17 21:51 99.2 99 18 136/69 94 12/21/17 21:27 98.8 110 17 139/69 92 12/21/17 20:00 99 12/21/17 19:52 98.5 98 18 129/65 94 12/21/17 19:35 98.5 106 20 134/70 93 12/21/17 16:27 98.8 105 16 121/61 98 12/21/17 16:12 99.1 106 16 113/55 96 12/21/17 16:00 113/55 (74) 12/21/17 14:09 98.5 103 20 128/63 97 12/21/17 13:54 98.4 112 16 136/73 96 12/21/17 12:00 97.9 103 18 146/78 (100) 97 12/21/17 11:56 98.5 95 20 136/67 97 I/O 12/21/17 12/21/17 12/21/17 12/22/17 12/22/17 12/22/17 07:00 15:00 23:00 07:00 15:00 23:00 Intake Total 520 ml 323 ml 2515 ml 492 ml Output Total 500 ml 2000 ml Balance 520 ml 323 ml 2015 ml -1508 ml Intake Oral 0 ml 720 ml 120 ml IV Total 100 ml 300 ml 100 ml Packed Cells 420 ml FFP 323 ml 922 ml 272 ml Platelets 573 ml Output Urine Total 500 ml 2000 ml # Voids 8 # Bowel Movements 0 0 0 Laboratory Laboratory Tests Test 12/21/17 16:49 White Blood Count 2.4 Red Blood Count 2.83 Hemoglobin 9.5 Hematocrit 26.8 Mean Corpuscular Volume 94.5 Mean Corpuscular Hemoglobin 33.4 Mean Corpuscular Hemoglobin Concent 35.3 Red Cell Distribution Width 18.6 Platelet Count 16 Mean Platelet Volume 7.4 Neutrophils (%) (Auto) 68.6 Lymphocytes (%) (Auto) 14.1 Monocytes (%) (Auto) 14.1 Eosinophils (%) (Auto) 2.5 Basophils (%) (Auto) 0.7 Neutrophils # (Auto) 1.7 Lymphocytes # (Auto) 0.3 Monocytes # (Auto) 0.3 Eosinophils # (Auto) 0.1 Basophils # (Auto) 0.0 CBC Comment AUTO DIFF Differential Comment AUTO DIFF CONFIRMED Toxic Granulation 2+ Platelet Estimate RARE Platelet Morphology Comment NORMAL Basophilic Stippling FAINT Blood Urea Nitrogen 8 Creatinine 0.69 Random Glucose 146 Calcium Level 8.1 Sodium Level 135 Potassium Level 2.6 Chloride Level 99 Carbon Dioxide Level 27.3 Anion Gap 9 Estimat Glomerular Filtration Rate 88 Date/Time Source Procedure Growth Status 12/20/17 19:45 Blood Peripheral Aerobic Blood Culture - Preliminary NO GROWTH IN 2 DAYS Resulted 12/20/17 19:45 Blood Peripheral Anaerobic Blood Culture - Preliminary NO GROWTH IN 2 DAYS Resulted 12/20/17 18:10 Urine Catheterized Urine Urine Culture - Final Escherichia Coli Complete Imaging Last Impressions Maxillofacial CT 12/20/17 1800 Signed Impressions: Service Date/Time: Wednesday, December 20, 2017 19:07 - CONCLUSION: 1. No acute bony abnormalities. Sphenoid sinusitis. Postop changes in left mastoid and temporal bone. Moises Leon MD Chest CT 12/20/17 1800 Signed Impressions: Service Date/Time: Wednesday, December 20, 2017 19:18 - CONCLUSION: 1. Healing fractures of the upper right fourth, fifth and sixth ribs. No pneumothorax or effusion. Distal esophageal varices. Moises Leon MD Abdomen/Pelvis CT 12/20/17 1800 Signed Impressions: Service Date/Time: Wednesday, December 20, 2017 19:18 - CONCLUSION: 1. Negative for acute traumatic injury within the abdomen or pelvis. 2. Liver cirrhosis with numerous varices periesophageal, perihepatic and retroperitoneal. Minimal ascites around the liver. Splenomegaly. Moises Leon MD Head CT 12/20/175 Signed Impressions: Service Date/Time: Wednesday, December 20, 2017 19:07 - CONCLUSION: 1. No acute intracranial abnormalities. Fluid in the sphenoid sinus characteristic of sinusitis. Moises Leon MD Chest X-Ray 12/20/171744 Signed Impressions: Service Date/Time: Wednesday, December 20, 2017 18:01 - CONCLUSION: No acute disease. Moises Leon MD Cervical Spine CT 12/20/17 0000 Signed Impressions: Service Date/Time: Wednesday, December 20, 2017 22:36 - CONCLUSION: 1. No acute findings. Moises Leon MD Physical Exam HEENT: PERRL; normocephalic; bruises, + icterus CHEST: CTA CARDIAC: tachycardic ABDOMEN: Soft, distended, nontender; bowel sounds are present in all four quadrants. EXTREMITIES: No clubbing, cyanosis, or edema. SKIN: Normal; no rash; +jaundice. WORKDAY MANAGER: lethargic (Mai Weaver) Assessment and Plan Plan ASSESSMENT - anemia with heme pos stool - hgb 8.6 on admission. this is not far from her baseline. no obvious GI bleeding. She was having rectal bleeding last admission colonoscopy was done 10/2017 found colitis rectum with firable oozing tissue , s/p ablation & polyp found. 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 No biopsies done at that time. likely the heme pos stool is r/t this friable tissue and her low platelets, will transfuse and do flex sig, try to get a bx - elevated LFTs, jaundice, elevated NH - suspect etoh hepatitis. previous liver w/u unremarkable. denies etoh in the last month. DF 52, appears she is on prednisone taper NH 60, pt lethargic and mildly confused, BID lactulose started 12/22/17 flex sig cancelled d/t respiratory distress, per SDS RN improved after breathing tx. labs for today pending. will try again for flex sig tomorrow. PLAN - flex sig tomorrow - clear liquids - NPO after midnight - monitor labs - TID lactulose - consider adding pentoxifylline - continue PO prednisone for now - further recs to follow pt seen by myself and Dr Murcia and this note is written on his behalf (Mai Weaver) Physician Comments Patient seen and examined Agree with above Continue current supportive care Monitor labs Flexible sigmoidoscopy tomorrow (Bridger Murcia MD) Mai Weaver Dec 22, 2017 11:43 Bridger Murcia MD Dec 22, 2017 21:12
[2017-12-22 12:43] LABS: HEMATOCRIT 31.2 % (35.0-46.0); HEMOGLOBIN 10.8 GM/DL (11.6-15.3); MEAN CELL VOLUME 94.4 FL (80.0-100.0); MEAN CORPUSCULAR HEMOGLOBIN 32.7 PG (27.0-34.0); MEAN CORPUSCULAR HGB CONC 34.6 % (32.0-36.0); MEAN PLATELET VOLUME 7.5 FL (7.0-11.0); PLATELET COUNT 44 TH/MM3 (150-450); RED CELL DISTRIBUTION WIDTH 18.3 % (11.6-17.2); WHITE BLOOD COUNT 4.1 TH/MM3 (4.0-11.0)
[2017-12-22 12:50] LABS: INTERNATIONAL NORMALIZED RATIO 1.5 RATIO; PROTHROMBIN TIME - PATIENT 15.2 SEC (9.8-11.6)
[2017-12-22 13:03] LABS: BICARBONATE 24.4 MEQ/L (21.0-32.0); CALCIUM 8.5 MG/DL (8.5-10.1); CREATININE 0.83 MG/DL (0.50-1.00); DIRECT BILIRUBIN ADULT 10.1 MG/DL (0.0-0.2); MAGNESIUM 1.7 MG/DL (1.5-2.5)
[2017-12-22 13:07] LABS: INDIRECT BILIRUBIN 6.4 MG/DL (0.0-0.8); TOTAL BILIRUBIN ADULT 16.5 MG/DL (0.2-1.0); TOTAL PROTEIN 7.3 GM/DL (6.4-8.2)
[2017-12-22] MEDS ORDERED: POTASSIUM CHLORIDE 25 MEQ EFFERVESCENT TAB PO ONE (13:30)
[2017-12-22] MEDS: MORPHINE SULFATE 2 MG/ML INJ IV PUSH PRN ×2 (14:22→22:01)
[2017-12-22] MEDS: POTASSIUM CHLOR 20 MEQ PREMIX 100 ML IV SCH ×2 (14:39→17:11)
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
--- NOTE | 2017-12-22 16:21 | HHI.HCSW ---
Urban Designer Visit Cognitive Functioning Met with Ms. Rabago. She is currently lying in bed, denies any pain or discomfort at time of visit. Verbalizes she is tired. Appropriate throughout conversation. Requests bed rojas from HOT PLATE PRESS OPERATOR, ALEJANDRO in to assist. . Significant Family/Friend Supported by 2 sons (age 21-lives in [place], [place] and 25, lives in [place], [place] ) , mother and father. Mother and father reportedly just left. . Pertinent Social History Ms. Rabago is single. 2 adult sons. 2 living parents. No siblings. Denies any medical conditions in the family system (may need to further explore with patient and parents as she became primarily focused on needing a bed rojas during conversation). Denies smoking. States she stopped drinking 1 month ago, prior to that was drinking "3 a day", further explains 3 vodkas a day. . Spiritual/[employer] Orthodoxy. States yazidism and spirituality is important to her. Declines pharmacy stock clerk support. . Advance Directive No written advanced directives. Ms. Rabago states she would like for her parents to serve as her health care surrogates. Will assist with paperwork, did not wish to complete during my visit as she needed to use the bed rojas. Also gently discussed CODE STATUS. Desires some time to consider wishes. . Follow Up Visit Palliative care CIVIL ENGINEER'S AIDE to follow-up to further discuss medical condition and address goals of care. Palliative care will continue to follow throughout hospitalization. Layla Schwartz, SENIOR PHP WEB DEVELOPER Dec 22, 2017 16:21
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
[2017-12-22] MEDS: predniSONE 50 MG TAB PO SCH (17:22)
[2017-12-22] MEDS: RESP: ALBUTEROL 2.5 MG/IPRATROPIUM 0.5 MG NEB (SCH) NEB (19:45)
[2017-12-22] MEDS: cefTRIAXone INJ 1,000 MG in SODIUM CHLORIDE 0.9% INJ 100 ML IV SCH (20:53)
[2017-12-22 23:30] LABS: CALCIUM 8.9 MG/DL (8.5-10.1); CREATININE 0.57 MG/DL (0.50-1.00)
[2017-12-23] VITALS: BP 136/70; PULSE 91; PULSE 97; RESP 20; TEMP 97; O2SAT 96
[2017-12-23] MEDS ORDERED: PANTOPRAZOLE INJ 80 MG in SODIUM CHLORIDE 0.9% INJ 100 ML IV SCH ×2
[2017-12-23] MEDS: PANTOPRAZOLE INJ 80 MG in SODIUM CHLORIDE 0.9% INJ 100 ML IV SCH ×3 (01:06→19:48)
[2017-12-23 04:02] VITALS: BP 137/79; PULSE 105; RESP 18; TEMP 97.2; O2SAT 92
[2017-12-23] MEDS: MORPHINE SULFATE 2 MG/ML INJ IV PUSH PRN ×3 (04:57→21:58)
[2017-12-23 08:00] VITALS: BP 135/67; PULSE 100; RESP 20; TEMP 96.9; O2SAT 95
[2017-12-23 08:12] LABS: HEMATOCRIT 28.9 % (35.0-46.0); MEAN CELL VOLUME 95.2 FL (80.0-100.0); MEAN CORPUSCULAR HGB CONC 34.7 % (32.0-36.0); MEAN PLATELET VOLUME 7.5 FL (7.0-11.0); PLATELET COUNT 31 TH/MM3 (150-450); RED BLOOD COUNT 3.03 MIL/MM3 (4.00-5.30); RED CELL DISTRIBUTION WIDTH 18.9 % (11.6-17.2); WHITE BLOOD COUNT 3.3 TH/MM3 (4.0-11.0)
[2017-12-23 08:42] LABS: BICARBONATE 25.9 MEQ/L (21.0-32.0); CALCIUM 8.6 MG/DL (8.5-10.1); CREATININE 0.5 MG/DL (0.50-1.00); MAGNESIUM 1.8 MG/DL (1.5-2.5)
[2017-12-23] MEDS: LACTULOSE SYRUP 20 GM/30 ML CUP PO SCH ×3 (08:50→17:01)
[2017-12-23] MEDS: predniSONE 50 MG TAB PO SCH (08:50)
[2017-12-23] MEDS: PHYTONADIONE 5 MG/SWFI 5 ML ORAL SYR PO SCH (08:50)
[2017-12-23] MEDS: SODIUM CHLORIDE 0.9% FLUSH 10 ML FLUSH IV FLUSH SCH ×2 (08:53→19:48)
[2017-12-23] MEDS: RESP: ALBUTEROL 2.5 MG/IPRATROPIUM 0.5 MG NEB (SCH) NEB ×3 (09:21→20:21)
[2017-12-23 09:24] VITALS: O2SAT 92
[2017-12-23] MEDS ORDERED: GLYCOPYRROLATE 1 MG/5 ML SYRINGE IV PUSH ONE (12:00)
[2017-12-23] MEDS ORDERED: LIDOCAINE HCL 1% PF 5 ML SYRINGE OTHER ONE (12:00)
[2017-12-23] MEDS ORDERED: PROPOFOL 200 MG/20 ML AMP IV ONE (12:00)
[2017-12-23] MEDS ORDERED: DO NOT ADM ANY ANTICOAGULANT DRUGS PRN (13:53)
--- NOTE | 2017-12-23 14:11 | PD.PROCEDR ---
GI Procedure PROCEDURE PERFORMED Flexible sigmoidoscopy with biopsy INDICATION FOR PROCEDURE Guaiac-positive stools, abnormal rectum on previous endoscopy, diarrhea PROCEDURE: The procedure, risks and benefits were discussed with Ms. Rabago and informed consent was obtained. Anesthesia sedated her with Diprivan. She was placed in the left lateral decubitus position. Flexible Sigmoidoscopy: The Pentax videoscope was introduced through the rectum and advanced to the sigmoid. Retroflexion was performed in the rectum. Colonic prep was good FINDINGS: The colonic mucosa was unremarkable from the descending colon all way down to the rectum random biopsies were taken from descending colon and rectum ESTIMATED BLOOD LOSS: None SPECIMENS REMOVED: Colon biopsies COMPLICATIONS: None IMPRESSION: Normal flexible sigmoidoscopy PLAN: Supportive care Monitor labs Await biopsies Advance diet Bridger Murcia MD Dec 23, 2017 14:11
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
[2017-12-23 16:00] VITALS: BP 151/95; PULSE 131; RESP 20; TEMP 97.7; O2SAT 96
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
[2017-12-23 20:00] VITALS: BP 147/80; PULSE 110; RESP 20; TEMP 97.9; O2SAT 92
[2017-12-23] MEDS: cefTRIAXone INJ 1,000 MG in SODIUM CHLORIDE 0.9% INJ 100 ML IV SCH (20:16)
[2017-12-24] VITALS (9 sets, daily range): BP systolic 140–162; BP diastolic 73–85; PULSE 49–111; RESP 17–19; TEMP 97.3–98.9; O2SAT 93–95
[2017-12-24] MEDS: PANTOPRAZOLE INJ 80 MG in SODIUM CHLORIDE 0.9% INJ 100 ML IV SCH (04:06)
[2017-12-24] MEDS: MORPHINE SULFATE 2 MG/ML INJ IV PUSH PRN ×3 (04:06→16:49)
[2017-12-24 05:46] LABS: HEMATOCRIT 29.8 % (35.0-46.0); HEMOGLOBIN 10.3 GM/DL (11.6-15.3); MEAN CELL VOLUME 97.3 FL (80.0-100.0); MEAN CORPUSCULAR HEMOGLOBIN 33.7 PG (27.0-34.0); MEAN CORPUSCULAR HGB CONC 34.7 % (32.0-36.0); MEAN PLATELET VOLUME 7.5 FL (7.0-11.0); PLATELET COUNT 36 TH/MM3 (150-450); RED BLOOD COUNT 3.06 MIL/MM3 (4.00-5.30); RED CELL DISTRIBUTION WIDTH 19.4 % (11.6-17.2); WHITE BLOOD COUNT 4.1 TH/MM3 (4.0-11.0)
[2017-12-24] MEDS: RESP: ALBUTEROL 2.5 MG/IPRATROPIUM 0.5 MG NEB (SCH) NEB (08:00)
[2017-12-24] MEDS: SODIUM CHLORIDE 0.9% FLUSH 10 ML FLUSH IV FLUSH SCH ×2 (08:08→21:00)
[2017-12-24] MEDS: predniSONE 50 MG TAB PO SCH (08:09)
[2017-12-24] MEDS: LACTULOSE SYRUP 20 GM/30 ML CUP PO SCH ×3 (08:09→16:55)
[2017-12-24] MEDS: PHYTONADIONE 5 MG/SWFI 5 ML ORAL SYR PO SCH (08:19)
--- NOTE | 2017-12-24 10:39 | HHI.GIFU ---
Subjective Remarks Pt OOB to chair, looks better today. No further rectal bleeding. Wants to get back in bed "but they told me I should sit in chair." c/o abd pain after eating banana. (Mai Weaver) Objective Vitals I&O Vital Signs Date Time Temp Pulse Resp B/P (MAP) Pulse Ox O2 Delivery O2 Flow Rate FiO2 12/24/17 08:00 98.0 110 19 145/73 (97) 95 12/24/17 04:00 97.6 111 18 141/81 (101) 93 12/24/17 00:20 109 12/24/17 00:00 97.3 111 18 140/85 (103) 93 12/23/17 20:20 2.00 12/23/17 20:00 97.9 110 20 147/80 (102) 92 12/23/17 16:00 97.7 131 20 151/95 (113) 96 12/23/17 13:57 92 Nasal Cannula 2 12/23/17 13:57 97.2 128 18 134/76 (95) 92 12/23/17 10:50 Nasal Cannula 2 I/O 12/23/17 12/23/17 12/23/17 12/24/17 12/24/17 12/24/17 07:00 15:00 23:00 07:00 15:00 23:00 Intake Total 100 ml 500 ml 1160 ml 700 ml 120 ml Output Total 1360 ml Balance 100 ml 500 ml -200 ml 700 ml 120 ml Intake Oral 0 ml 960 ml 600 ml 120 ml IV Total 100 ml 200 ml 100 ml Other 500 ml Output Urine Total 1360 ml # Voids 2 1 1 3 # Bowel Movements 0 0 Laboratory Laboratory Tests Test 12/24/17 03:58 White Blood Count 4.1 Red Blood Count 3.06 Hemoglobin 10.3 Hematocrit 29.8 Mean Corpuscular Volume 97.3 Mean Corpuscular Hemoglobin 33.7 Mean Corpuscular Hemoglobin Concent 34.7 Red Cell Distribution Width 19.4 Platelet Count 36 Mean Platelet Volume 7.5 Date/Time Source Procedure Growth Status 12/20/17 19:45 Blood Peripheral Aerobic Blood Culture - Preliminary NO GROWTH IN 3 DAYS Resulted 12/20/17 19:45 Blood Peripheral Anaerobic Blood Culture - Preliminary NO GROWTH IN 3 DAYS Resulted 12/20/17 18:10 Urine Catheterized Urine Urine Culture - Final Escherichia Coli Complete Imaging Last Impressions Maxillofacial CT 12/20/17 1800 Signed Impressions: Service Date/Time: Wednesday, December 20, 2017 19:07 - CONCLUSION: 1. No acute bony abnormalities. Sphenoid sinusitis. Postop changes in left mastoid and temporal bone. Moises Leon MD Chest CT 12/20/17 1800 Signed Impressions: Service Date/Time: Wednesday, December 20, 2017 19:18 - CONCLUSION: 1. Healing fractures of the upper right fourth, fifth and sixth ribs. No pneumothorax or effusion. Distal esophageal varices. Moises Leon MD Abdomen/Pelvis CT 12/20/17 1800 Signed Impressions: Service Date/Time: Wednesday, December 20, 2017 19:18 - CONCLUSION: 1. Negative for acute traumatic injury within the abdomen or pelvis. 2. Liver cirrhosis with numerous varices periesophageal, perihepatic and retroperitoneal. Minimal ascites around the liver. Splenomegaly. Moises Leon MD Head CT 12/20/17 1745 Signed Impressions: Service Date/Time: Wednesday, December 20, 2017 19:07 - CONCLUSION: 1. No acute intracranial abnormalities. Fluid in the sphenoid sinus characteristic of sinusitis. Moises Leon MD Chest X-Ray 12/20/17 1745 Signed Impressions: Service Date/Time: Wednesday, December 20, 2017 18:01 - CONCLUSION: No acute disease. Moises Leon MD Cervical Spine CT 12/20/17 0000 Signed Impressions: Service Date/Time: Wednesday, December 20, 2017 22:36 - CONCLUSION: 1. No acute findings. Moises Leon MD Physical Exam HEENT: PERRL; normocephalic; bruises, + icterus CHEST: wheezes CARDIAC: tachycardic ABDOMEN: firmness palpated upper quadrants, distended,upper quadrant TTP; bowel sounds are present in all four quadrants. EXTREMITIES: No clubbing, cyanosis, or edema. SKIN: Normal; no rash; +jaundice. SOLUTIONS OPERATOR: AO X 3 (Mai Weaver RADIOLOGICAL EQUIPMENT SPECIALIST) Assessment and Plan Plan ASSESSMENT - anemia with heme pos stool - hgb 8.6 on admission. this is not far from her baseline. no obvious GI bleeding. She was having rectal bleeding last admission colonoscopy was done 10/2017 found colitis rectum with firable oozing tissue , s/p ablation & polyp found. 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 No biopsies done at that time. likely the heme pos stool is r/t this friable tissue and her low platelets, will transfuse and do flex sig, try to get a bx - elevated LFTs, jaundice, elevated NH - suspect etoh hepatitis. previous liver w/u unremarkable. denies etoh in the last month. DF 52, appears she is on prednisone taper NH 60, pt lethargic and mildly confused, BID lactulose started 12/22/17 flex sig cancelled d/t respiratory distress, per SDS RN improved after breathing tx. labs for today pending. will try again for flex sig tomorrow. 12/24/17 S/P flex sig normal. BX pending. no further rectal bleeding. pt c/ o epigastric pain after eating banana, seems distended in that area. CT 12/20 no acute abd injury, cirrhosis with verices, minimal ascites, splenomegaly. PLAN - low sodium diet - await bx rectum, colon - continue lactulose - continue PO prednisone for now - check LFTs, INR/PT in am - supportive care pt seen by myself and Dr Murcia and this note is written on his behalf (Mai Weaver) Physician Comments Patient seen and examined Agree with above Continue with current supportive care Monitor labs (Bridger Murcia MD) Mai Weaver Dec 24, 2017 10:39 Bridger Murcia MD Dec 24, 2017 19:39
--- NOTE | 2017-12-24 10:42 | HHI.HCPN ---
Palliative care continues to follow in an attempt to address goals of care with Ms. Rabago. She is sitting up in bedside chair, GI TEENAGE BABYSITTER present finishing exam. Ms. Rabago is alert, oriented, and able to make her needs known. She is appropriate in conversation. States she did not have a good night, elaborates "the pump kept going off, I had blood drawn at 4am". Verbalizes some discomfort in her stomach and expresses concern about inability to walk. Reports she stood this morning but was unable to walk. Denies any pain with legs/movement, only pain is in her stomach. Ms. Rabago states she lives at home alone but has a neighbor that checks on her. Also reports her parents live locally and should be up to visit her shortly. Attempted to gently discuss goals of care and CODE STATUS. She continuously redirects conversation to request pain medication. Requests RN to bring available pain medication. Spoke with staff to inform RN. Palliative care will continue to follow throughout hospitalization and will continue to address goals of care. Layla Schwartz, LOADING MANAGER Dec 24, 2017 10:42
--- NOTE | 2017-12-24 11:36 | RADRPT ---
EXAM DATE/TIME: 12/24/2017 11:03 [facility] COMPARISON: CT ABDOMEN & PELVIS W CONTRAST, December 20, 2017, 19:18. CHEST SINGLE AP, December 20, 2017, 18:01. INDICATIONS : Shortness of breath, wheezing. MEDICAL HISTORY : Asthma. SURGICAL HISTORY : None. ENCOUNTER: Subsequent ACUITY: 4 - 6 days PAIN SCORE: 0/10 LOCATION: Bilateral chest FINDINGS: Patchy bilateral lower lobe airspace disease. Cardiomediastinal are within normal limits. Remainder o f exam is unchanged. CONCLUSION: 1. Developed patchy bilateral lower lobe airspace disease which may reflect atelectasis or aspiration in the appropriate clinical setting. Yoel Winters MD on December 24, 2017 at 11:33 Board Certified Radiologist. This report was verified electronically.
[2017-12-24] MEDS ORDERED: RESP: ALBUTEROL 2.5 MG/IPRATROPIUM 0.5 MG NEB (PRN) NEB (12:00)
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
[2017-12-24] MEDS: PANTOPRAZOLE SOD 40 MG DELAYED RELEASE TAB PO SCH (20:49)
[2017-12-24] MEDS: cefTRIAXone INJ 1,000 MG in SODIUM CHLORIDE 0.9% INJ 100 ML IV SCH (20:50)
[2017-12-25] VITALS (9 sets, daily range): BP systolic 138–162; BP diastolic 49–105; PULSE 84–105; RESP 16–20; TEMP 96.2–97.8; O2SAT 93–96
[2017-12-25] MEDS: MORPHINE SULFATE 2 MG/ML INJ IV PUSH PRN ×3 (00:01→21:11)
[2017-12-25 07:21] LABS: INTERNATIONAL NORMALIZED RATIO 1.7 RATIO; PROTHROMBIN TIME - PATIENT 17.4 SEC (9.8-11.6)
[2017-12-25 07:32] LABS: ALBUMIN 2.6 GM/DL (3.4-5.0); DIRECT BILIRUBIN ADULT 9.1 MG/DL (0.0-0.2)
[2017-12-25 07:42] LABS: INDIRECT BILIRUBIN 7.4 MG/DL (0.0-0.8); TOTAL BILIRUBIN ADULT 16.5 MG/DL (0.2-1.0); TOTAL PROTEIN 6.5 GM/DL (6.4-8.2)
[2017-12-25] MEDS: PHYTONADIONE 5 MG/SWFI 5 ML ORAL SYR PO SCH (09:48)
[2017-12-25] MEDS: SODIUM CHLORIDE 0.9% FLUSH 10 ML FLUSH IV FLUSH SCH ×2 (09:52→21:00)
[2017-12-25] MEDS: predniSONE 50 MG TAB PO SCH (09:52)
[2017-12-25] MEDS: LACTULOSE SYRUP 20 GM/30 ML CUP PO SCH ×3 (09:53→16:53)
[2017-12-25] MEDS: PANTOPRAZOLE SOD 40 MG DELAYED RELEASE TAB PO SCH ×2 (09:53→21:11)
--- NOTE | 2017-12-25 13:08 | HHI.GIFU ---
Subjective Remarks Pt resting in bed. Just finished PT. Still having some abd pain. tolerating diet, had BM last night. (Mai Weaver) Objective Vitals I&O Vital Signs Date Time Temp Pulse Resp B/P (MAP) Pulse Ox O2 Delivery O2 Flow Rate FiO2 12/25/17 08:00 97.8 104 20 162/105 (124) 96 12/25/17 04:00 96.3 102 17 141/80 (100) 96 12/25/17 00:00 96.5 103 17 157/82 (107) 93 12/24/17 23:45 104 12/24/17 20:00 97.8 98 17 146/79 (101) 95 12/24/17 19:08 103 I/O 12/24/17 12/24/17 12/24/17 12/25/17 12/25/17 12/25/17 07:00 15:00 23:00 07:00 15:00 23:00 Intake Total 700 ml 120 ml 960 ml 700 ml Output Total 1400 ml 6 ml Balance 700 ml 120 ml -440 ml 694 ml Intake Oral 600 ml 120 ml 960 ml 600 ml IV Total 100 ml 100 ml Output Urine Total 1000 ml Stool Total 400 ml 6 ml # Voids 3 6 # Bowel Movements 0 Laboratory Laboratory Tests Test 12/25/17 06:20 Prothrombin Time 17.4 Prothromb Time International Ratio 1.7 Total Bilirubin 16.5 Direct Bilirubin 9.1 Indirect Bilirubin 7.4 Aspartate Amino Transf (AST/SGOT) 78 Alanine Aminotransferase (ALT/SGPT) 37 Alkaline Phosphatase 135 Total Protein 6.5 Albumin 2.6 Date/Time Source Procedure Growth Status 12/20/17 19:45 Blood Peripheral Aerobic Blood Culture - Final NO GROWTH IN 5 DAYS Complete 12/20/17 19:45 Blood Peripheral Anaerobic Blood Culture - Final NO GROWTH IN 5 DAYS Complete 12/20/17 18:10 Urine Catheterized Urine Urine Culture - Final Escherichia Coli Complete Imaging Last Impressions Chest X-Ray 12/24/17 0000 Signed Impressions: Service Date/Time: Sunday, December 24, 2017 11:03 - CONCLUSION: 1. Developed patchy bilateral lower lobe airspace disease which may reflect atelectasis or aspiration in the appropriate clinical setting. Yoel Winters MD Maxillofacial CT 12/20/17 1800 Signed Impressions: Service Date/Time: Wednesday, December 20, 2017 19:07 - CONCLUSION: 1. No acute bony abnormalities. Sphenoid sinusitis. Postop changes in left mastoid and temporal bone. Moises Leon MD Chest CT 12/20/17 1800 Signed Impressions: Service Date/Time: Wednesday, December 20, 2017 19:18 - CONCLUSION: 1. Healing fractures of the upper right fourth, fifth and sixth ribs. No pneumothorax or effusion. Distal esophageal varices. Moises Leon MD Abdomen/Pelvis CT 12/20/17 1800 Signed Impressions: Service Date/Time: Wednesday, December 20, 2017 19:18 - CONCLUSION: 1. Negative for acute traumatic injury within the abdomen or pelvis. 2. Liver cirrhosis with numerous varices periesophageal, perihepatic and retroperitoneal. Minimal ascites around the liver. Splenomegaly. Moises Leon MD Head CT 12/20/17 1745 Signed Impressions: Service Date/Time: Wednesday, December 20, 2017 19:07 - CONCLUSION: 1. No acute intracranial abnormalities. Fluid in the sphenoid sinus characteristic of sinusitis. Moises Leon MD Cervical Spine CT 12/20/17 0000 Signed Impressions: Service Date/Time: Wednesday, December 20, 2017 22:36 - CONCLUSION: 1. No acute findings. Moises Leon MD Physical Exam HEENT: PERRL; normocephalic; bruises, + icterus CHEST: wheezes CARDIAC: tachycardic ABDOMEN: firmness palpated upper quadrants, distended,upper quadrant TTP; bowel sounds are present in all four quadrants. EXTREMITIES: No clubbing, cyanosis, or edema. SKIN: Normal; no rash; +jaundice. PULPER OPERATOR: AO X 3 (Mai Weaver REAL ESTATE BRANCH MANAGER) Assessment and Plan Plan ASSESSMENT - anemia with heme pos stool - hgb 8.6 on admission. this is not far from her baseline. no obvious GI bleeding. She was having rectal bleeding last admission colonoscopy was done 10/2017 found colitis rectum with firable oozing tissue , s/p ablation & polyp found. 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 No biopsies done at that time. likely the heme pos stool is r/t this friable tissue and her low platelets, will transfuse and do flex sig, try to get a bx - elevated LFTs, jaundice, elevated NH - suspect etoh hepatitis. previous liver w/u unremarkable. denies etoh in the last month. DF 52, appears she is on prednisone taper NH 60, pt lethargic and mildly confused, BID lactulose started 12/22/17 flex sig cancelled d/t respiratory distress, per SDS RN improved after breathing tx. labs for today pending. will try again for flex sig tomorrow. 12/24/17 S/P flex sig normal. BX pending. no further rectal bleeding. pt c/ o epigastric pain after eating banana, seems distended in that area. CT 12/20 no acute abd injury, cirrhosis with verices, minimal ascites, splenomegaly. 12/25/17 no further bleeding. + BM. tolerating diet. some abd pain. LFTs not much change. HH stable. PLT stable. PLAN - low sodium diet - await bx rectum, colon - continue lactulose - continue PO prednisone for now - supportive care pt seen by myself and Dr Lauren and this note is written on her behalf (Mai Weaver) Physician Comments seen, examined agree with above (Arina Lauren MD) Mai Weaver Dec 25, 2017 13:08 Arina Lauren MD Dec 25, 2017 16:47
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
[2017-12-25] MEDS: cefTRIAXone INJ 1,000 MG in SODIUM CHLORIDE 0.9% INJ 100 ML IV SCH (21:11)
[2017-12-26] VITALS (8 sets, daily range): BP systolic 109–158; BP diastolic 59–81; PULSE 83–98; RESP 17–20; TEMP 96.4–97.1; O2SAT 94–97
[2017-12-26] MEDS: MORPHINE SULFATE 2 MG/ML INJ IV PUSH PRN ×3 (04:53→20:18)
--- NOTE | 2017-12-26 05:46 | RADRPT ---
EXAM DATE/TIME: 12/26/2017 04:52 [place] COMPARISON: CHEST SINGLE AP, December 24, 2017, 11:03. INDICATIONS : Pneumonia. MEDICAL HISTORY : Asthma . Hypertension. Gastroesophageal reflux disease. SURGICAL HISTORY : None. ENCOUNTER: Subsequent ACUITY: 4 - 6 days PAIN SCORE: 0/10 LOCATION: Bilateral chest FINDINGS: A single view of the chest demonstrates the lungs to be symmetrically aerated without evidence of mas s, infiltrate or effusion. Previous basilar airspace consolidation has resolved and a The cardiomedia stinal contours are unremarkable. Osseous structures are intact. CONCLUSION: Near-complete resolution of previous basilar airspace disease. No new infiltrate. Moises Leon MD on December 26, 2017 at 5:43 Board Certified Radiologist. This report was verified electronically.
[2017-12-26 08:41] LABS: HEMATOCRIT 31.8 % (35.0-46.0); HEMOGLOBIN 10.7 GM/DL (11.6-15.3); MEAN CELL VOLUME 97.3 FL (80.0-100.0); MEAN CORPUSCULAR HEMOGLOBIN 32.8 PG (27.0-34.0); MEAN CORPUSCULAR HGB CONC 33.7 % (32.0-36.0); MEAN PLATELET VOLUME 7.4 FL (7.0-11.0); PLATELET COUNT 49 TH/MM3 (150-450); RED BLOOD COUNT 3.26 MIL/MM3 (4.00-5.30); RED CELL DISTRIBUTION WIDTH 20.4 % (11.6-17.2); WHITE BLOOD COUNT 4.7 TH/MM3 (4.0-11.0)
[2017-12-26 08:55] LABS: ALBUMIN 2.5 GM/DL (3.4-5.0); BICARBONATE 25.9 MEQ/L (21.0-32.0); CALCIUM 8.8 MG/DL (8.5-10.1); CREATININE 0.55 MG/DL (0.50-1.00); MAGNESIUM 1.6 MG/DL (1.5-2.5)
[2017-12-26 08:58] LABS: INDIRECT BILIRUBIN 6.1 MG/DL (0.0-0.8); TOTAL BILIRUBIN ADULT 15.1 MG/DL (0.2-1.0); TOTAL PROTEIN 6.1 GM/DL (6.4-8.2)
[2017-12-26] MEDS: predniSONE 50 MG TAB PO SCH (09:00)
[2017-12-26] MEDS: LACTULOSE SYRUP 20 GM/30 ML CUP PO SCH ×3 (09:21→17:16)
[2017-12-26] MEDS: PANTOPRAZOLE SOD 40 MG DELAYED RELEASE TAB PO SCH ×2 (09:21→20:18)
[2017-12-26] MEDS: PHYTONADIONE 5 MG/SWFI 5 ML ORAL SYR PO SCH (09:23)
[2017-12-26] MEDS: SODIUM CHLORIDE 0.9% FLUSH 10 ML FLUSH IV FLUSH SCH ×2 (09:24→20:20)
[2017-12-26] MEDS ORDERED: POTASSIUM CHLORIDE 25 MEQ EFFERVESCENT TAB PO ONE (10:15)
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
[2017-12-26] MEDS: cefTRIAXone INJ 1,000 MG in SODIUM CHLORIDE 0.9% INJ 100 ML IV SCH (20:18)
[2017-12-27] VITALS: BP 141/73; PULSE 88; PULSE 98; RESP 20; TEMP 97.5; O2SAT 96
[2017-12-27] MEDS: MORPHINE SULFATE 2 MG/ML INJ IV PUSH PRN ×4 (03:20→22:14)
[2017-12-27 05:30] VITALS: BP 140/79; PULSE 100; RESP 20; TEMP 95.3; O2SAT 96
[2017-12-27 08:00] VITALS: BP 160/73; PULSE 109; RESP 19; TEMP 98.3; O2SAT 98
[2017-12-27] MEDS: PHYTONADIONE 5 MG/SWFI 5 ML ORAL SYR PO SCH ×2 (09:00→09:56)
[2017-12-27] MEDS: predniSONE 50 MG TAB PO SCH ×2 (09:35→09:56)
[2017-12-27] MEDS: PANTOPRAZOLE SOD 40 MG DELAYED RELEASE TAB PO SCH ×2 (09:35→22:14)
[2017-12-27] MEDS: LACTULOSE SYRUP 20 GM/30 ML CUP PO SCH ×3 (09:35→18:00)
[2017-12-27] MEDS: SODIUM CHLORIDE 0.9% FLUSH 10 ML FLUSH IV FLUSH SCH (09:35)
[2017-12-27 10:32] LABS: BICARBONATE 25.6 MEQ/L (21.0-32.0); CALCIUM 8.1 MG/DL (8.5-10.1); CREATININE 0.41 MG/DL (0.50-1.00); MAGNESIUM 1.4 MG/DL (1.5-2.5)
[2017-12-27] MEDS: POTASSIUM CHLORIDE 20 MEQ CONTROLLED RELEASE TAB PO SCH ×3 (11:00→18:15)
[2017-12-27] MEDS: MAGNESIUM SULFATE 1 GM PREMIX 100 ML IV SCH ×2 (11:00→12:00)
--- NOTE | 2017-12-27 11:40 | HHI.GIFU ---
Subjective Remarks Pt resting in bed. c/o that she is bored. C/o left quadrant discomfort. + BM. (Mai Weaver) Objective Vitals I&O Vital Signs Date Time Temp Pulse Resp B/P (MAP) Pulse Ox O2 Delivery O2 Flow Rate FiO2 12/27/17 08:00 98.3 109 19 160/73 (102) 98 12/27/17 05:30 95.3 100 20 140/79 (99) 96 12/27/17 00:00 97.5 98 20 141/73 (95) 96 12/27/17 00:00 88 12/26/17 20:00 96.5 92 20 119/69 (86) 94 12/26/17 19:59 86 12/26/17 16:00 96.5 95 19 109/59 (76) 95 12/26/17 12:00 96.8 98 17 138/75 (96) 96 I/O 12/26/17 12/26/17 12/26/17 12/27/17 12/27/17 12/27/17 07:00 15:00 23:00 07:00 15:00 23:00 Intake Total 800 ml 375 ml 400 ml Output Total 7 ml Balance 800 ml 368 ml 400 ml Intake Oral 800 ml 375 ml 400 ml Output Urine Total 7 ml # Voids 4 6 # Bowel Movements 4 2 Laboratory Laboratory Tests Test 12/27/17 07:03 Blood Urea Nitrogen 8 Creatinine 0.41 Random Glucose 90 Calcium Level 8.1 Magnesium Level 1.4 Sodium Level 137 Potassium Level 2.8 Chloride Level 102 Carbon Dioxide Level 25.6 Anion Gap 9 Estimat Glomerular Filtration Rate 160 Date/Time Source Procedure Growth Status 12/20/17 19:45 Blood Peripheral Aerobic Blood Culture - Final NO GROWTH IN 5 DAYS Complete 12/20/17 19:45 Blood Peripheral Anaerobic Blood Culture - Final NO GROWTH IN 5 DAYS Complete 12/20/17 18:10 Urine Catheterized Urine Urine Culture - Final Escherichia Coli Complete Imaging Last Impressions Chest X-Ray 12/26/17 0600 Signed Impressions: Service Date/Time: Tuesday, December 26, 2017 04:52 - CONCLUSION: Near- complete resolution of previous basilar airspace disease. No new infiltrate. Moises Leon MD Maxillofacial CT 12/20/17 1800 Signed Impressions: Service Date/Time: Wednesday, December 20, 2017 19:07 - CONCLUSION: 1. No acute bony abnormalities. Sphenoid sinusitis. Postop changes in left mastoid and temporal bone. Moises Leon MD Chest CT 12/20/17 1800 Signed Impressions: Service Date/Time: Wednesday, December 20, 2017 19:18 - CONCLUSION: 1. Healing fractures of the upper right fourth, fifth and sixth ribs. No pneumothorax or effusion. Distal esophageal varices. Moises Leon MD Abdomen/Pelvis CT 12/20/17 1800 Signed Impressions: Service Date/Time: Wednesday, December 20, 2017 19:18 - CONCLUSION: 1. Negative for acute traumatic injury within the abdomen or pelvis. 2. Liver cirrhosis with numerous varices periesophageal, perihepatic and retroperitoneal. Minimal ascites around the liver. Splenomegaly. Moises Leon MD Head CT 12/20/17 1745 Signed Impressions: Service Date/Time: Wednesday, December 20, 2017 19:07 - CONCLUSION: 1. No acute intracranial abnormalities. Fluid in the sphenoid sinus characteristic of sinusitis. Moises Leon MD Cervical Spine CT 12/20/17 0000 Signed Impressions: Service Date/Time: Wednesday, December 20, 2017 22:36 - CONCLUSION: 1. No acute findings. Moises Leon MD Physical Exam HEENT: PERRL; normocephalic; bruises, + icterus CHEST: CTA CARDIAC: RRR ABDOMEN: distended,LUQ TTP; bowel sounds are present in all four quadrants. EXTREMITIES: No clubbing, cyanosis, or edema. SKIN: Normal; no rash; +jaundice. MERINGUER: AO X 3 (Mai Weaver DIGITAL CAMERA TECHNICIAN) Assessment and Plan Plan ASSESSMENT - anemia with heme pos stool - hgb 8.6 on admission. this is not far from her baseline. no obvious GI bleeding. She was having rectal bleeding last admission colonoscopy was done 10/2017 found colitis rectum with firable oozing tissue , s/p ablation & polyp found. 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 No biopsies done at that time. likely the heme pos stool is r/t this friable tissue and her low platelets, will transfuse and do flex sig, try to get a bx - elevated LFTs, jaundice, elevated NH - suspect etoh hepatitis. previous liver w/u unremarkable. denies etoh in the last month. DF 52, appears she is on prednisone taper NH 60, pt lethargic and mildly confused, BID lactulose started 12/22/17 flex sig cancelled d/t respiratory distress, per SDS RN improved after breathing tx. labs for today pending. will try again for flex sig tomorrow. 12/24/17 S/P flex sig normal. BX pending. no further rectal bleeding. pt c/ o epigastric pain after eating banana, seems distended in that area. CT 12/20 no acute abd injury, cirrhosis with verices, minimal ascites, splenomegaly. 12/25/17 no further bleeding. + BM. tolerating diet. some abd pain. LFTs not much change. HH stable. PLT stable. 12/27/17 + BM. c/o LUQ pain, unclear etiology. + BM. plan was for d/c but she is hypokalemic. labs fairly stable. bx still pending PLAN - KUB - low sodium diet - await bx rectum, colon - continue lactulose - continue PO prednisone for now - supportive care - f/u with GI after d/c pt seen by myself and Dr Macias and this note is written on her behalf (Mai Weaver) Physician Comments Seen and examined with DIGITAL CAMERA TECHNICIAN, doing better. Tolerating diet. NO Etoh recommended. GI will sign off. FU gi upon dc. Thank you (Asuncion Macias MD) Mai Weaver Dec 27, 2017 11:40 Asuncion Macias MD Dec 27, 2017 16:49
[2017-12-27 12:00] VITALS: BP 123/69; PULSE 93; RESP 19; TEMP 97.7; O2SAT 96
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
--- NOTE | 2017-12-27 15:09 | RADRPT ---
EXAM DATE/TIME: 12/27/2017 13:42 [place] COMPARISON: No previous studies available for comparison. INDICATIONS : Abdomen pain, nausea. MEDICAL HISTORY : Hypertension. Pancreatitis. seizures SURGICAL HISTORY : None. ENCOUNTER: Subsequent ACUITY: >1 year PAIN SCORE: 8/10 LOCATION: Bilateral middle abdomen FINDINGS: Supine view of the abdomen was performed. Mildly prominent amount of gas in the stomach. No dilated loops of small bowel. Stool seen in the right and transverse colon.. No abnormal masses, calcifica tions, or organomegaly is seen. The osseous structures are unremarkable. CONCLUSION: Mild gaseous distention of the stomach. Otherwise negative exam. Kevin Irby MD on December 27, 2017 at 15:06 Board Certified Radiologist. This report was verified electronically.
[2017-12-27 16:00] VITALS: BP 164/89; PULSE 94; RESP 19; TEMP 98.2; O2SAT 96
[2017-12-27 20:00] VITALS: BP 121/58; PULSE 82; RESP 18; TEMP 96; O2SAT 98
[2017-12-27] MEDS: cefTRIAXone INJ 1,000 MG in SODIUM CHLORIDE 0.9% INJ 100 ML IV SCH (22:15)
[2017-12-27] MEDS: SODIUM CHLORIDE 0.9% FLUSH 10 ML FLUSH IV FLUSH PRN (22:16)
[2017-12-28] VITALS: BP 130/60; PULSE 81; RESP 18; TEMP 98; O2SAT 96
[2017-12-28 04:00] VITALS: BP 133/74; PULSE 92; RESP 18; TEMP 97; O2SAT 97
[2017-12-28] MEDS: MORPHINE SULFATE 2 MG/ML INJ IV PUSH PRN (04:57)
[2017-12-28] MEDS: SODIUM CHLORIDE 0.9% FLUSH 10 ML FLUSH IV FLUSH SCH ×2 (04:58→09:00)
[2017-12-28] MEDS: SODIUM CHLORIDE 0.9% FLUSH 10 ML FLUSH IV FLUSH PRN (04:58)
[2017-12-28 08:19] LABS: HEMATOCRIT 32.1 % (35.0-46.0); HEMOGLOBIN 10.9 GM/DL (11.6-15.3); MEAN CELL VOLUME 97.6 FL (80.0-100.0); MEAN CORPUSCULAR HEMOGLOBIN 33.2 PG (27.0-34.0); MEAN PLATELET VOLUME 8.6 FL (7.0-11.0); PLATELET COUNT 62 TH/MM3 (150-450); RED BLOOD COUNT 3.28 MIL/MM3 (4.00-5.30); RED CELL DISTRIBUTION WIDTH 20.7 % (11.6-17.2); WHITE BLOOD COUNT 6.4 TH/MM3 (4.0-11.0)
[2017-12-28] MEDS: LACTULOSE SYRUP 20 GM/30 ML CUP PO SCH ×2 (08:20→13:00)
[2017-12-28] MEDS: PANTOPRAZOLE SOD 40 MG DELAYED RELEASE TAB PO SCH (08:20)
[2017-12-28 08:51] LABS: BICARBONATE 25.8 MEQ/L (21.0-32.0); CALCIUM 8.3 MG/DL (8.5-10.1); CREATININE 0.45 MG/DL (0.50-1.00); MAGNESIUM 1.9 MG/DL (1.5-2.5)
[2017-12-28] MEDS ORDERED: predniSONE 20 MG TAB PO SCH (09:00)
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
== END 2017-12-28 12:54 | disposition home or self-care (01) | DRG 813 ==
LOC: NEPC 17:30 → NEDA 20:56 → N07A 22:43
PROVIDERS: ADMIT Internal Medicine; ATTEND Internal Medicine
PROC: 30233N1 Transfusion of Nonautologous Red Blood Cells into Peripheral Vein, Percutaneous Approach (ICD-10-PCS; 2017-12-21)
PROC: 0DBM4ZX Excision of Descending Colon, Percutaneous Endoscopic Approach, Diagnostic (ICD-10-PCS; 2017-12-23)
PROC: 0DBP8ZX Excision of Rectum, Via Natural or Artificial Opening Endoscopic, Diagnostic (ICD-10-PCS; principal; 2017-12-23 13:31)
DX: D69.6 Thrombocytopenia, unspecified (principal); D61.818 Other pancytopenia; K70.30 Alcoholic cirrhosis of liver without ascites; N39.0 Urinary tract infection, site not specified; K70.40 Alcoholic hepatic failure without coma; K21.9 Gastro-esophageal reflux disease without esophagitis; J45.909 Unspecified asthma, uncomplicated; S20.219A Contusion of unspecified front wall of thorax, initial encounter; S20.229A Contusion of unspecified back wall of thorax, initial encounter; S00.83XA Contusion of other part of head, initial encounter; W19.XXXA Unspecified fall, initial encounter; F10.10 Alcohol abuse, uncomplicated; E87.6 Hypokalemia; K22.70 Barrett's esophagus without dysplasia; K44.9 Diaphragmatic hernia without obstruction or gangrene; R19.5 Other fecal abnormalities; B96.20 Unspecified Escherichia coli [E. coli] as the cause of diseases classified elsewhere; K29.70 Gastritis, unspecified, without bleeding; I10 Essential (primary) hypertension; Z51.5 Encounter for palliative care; G47.30 Sleep apnea, unspecified; F12.90 Cannabis use, unspecified, uncomplicated; E83.42 Hypomagnesemia; R06.02 Shortness of breath; K59.00 Constipation, unspecified; Y92.009 Unspecified place in unspecified non-institutional (private) residence as the place of occurrence of the external cause; Z91.81 History of falling
CPT/HCPCS: 36430; 70450; 70486; 71045; 71260; 72125; 74018; 74177; 80048; 80053; 80076; 80307; 81001; 82140; 82550; 83605; 83690; 83735; 84100; 84443; 84484; 85025; 85027; 85610; 85730; 86850; 86900; 86901; 86920; 86927; 87040; 87077; 87086; 87186; 88305; 94150; 94640; 96361; 96365; 96375; C9113; J0696; J2270; J3105; J3475; J3480; J7030; J7120; J7512; J7613; P9016; P9017; P9035; P9612; Q9967